=== PATIENT | male | born 1965 | race Caucasian/White ===

== ENCOUNTER 2024-07-23 13:58 | Outpatient (OUT) | payer BC, SELFPAY ==
--- NOTE | 2024-07-23 14:07 | XR_ITS ---
The [address] [address] Patient Name: BERNARDO JIMENEZ MRN: [id number] date: 1965 Sex: M Assigned Patient Location: [facility] Current Patient Location: Accession/Order Number: [id number] Exam Date: 07/23/2024 14:09 Report Date: 07/25/2024 08:26 At the request of: ARNOLD ESTRADA Procedure: XR knee RT 3V PROCEDURE: XR knee RT 3V HISTORY: Right Knee Pain COMPARISON: None. FINDINGS: BONES:No fracture, dislocation, or significant joint space narrowing. Tiny degenerative osteophytes along the articular margins of the patella. Degenerative enthesophyte at the quadriceps tendon insertion into the patella. SOFT TISSUES:No visible soft tissue swelling. EFFUSION:None visible. OTHER: Negative. XR/XR knee RT 3V IMPRESSION: 1. No acute bone abnormality or suspicious findings. 2. Minimal degenerative joint disease. Electronically authenticated by: CARLOS TEIXEIRA Date: 07/25/2024 08:26
== END 2024-07-23 13:59 | disposition home or self-care (01) ==
LOC: RAD 14:02
PROVIDERS: PCP Nurse Practitioner Family; Visit Provider Nurse Practitioner Family
DX: M25.561 Pain in right knee (principal)
CPT/HCPCS: 73562

== ENCOUNTER 2024-08-16 11:53 | Outpatient (OUT) | payer BC, SELFPAY ==
--- NOTE | 2024-08-16 12:04 | MR_ITS ---
The [address] [address] Patient Name: BERNARDO JIMENEZ MRN: [id number] date: 1965 Sex: M Assigned Patient Location: [facility] Current Patient Location: Accession/Order Number: [id number] Exam Date: 08/16/2024 12:30 Report Date: 08/17/2024 07:00 At the request of: ARNOLD ESTRADA Procedure: MR knee RT wo con EXAMINATION: MR knee RT wo con HISTORY: Right Knee Pain COMPARISON: No relevant comparison available. TECHNIQUE: A complete multi-planar MRI was performed. 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 CARTILAGE: No visible defect. BONES: No marrow pathology, fracture, or significant arthropathy. MCL AND MEDIAL CAPSULE: Normal medial collateral ligament and medial capsule. LATERAL COMPARTMENT LATERAL MENISCUS: No visible tear or significant degeneration. CARTILAGE: No visible defect. BONES: No marrow pathology, fracture, or significant arthropathy. LCL/POSTEROLAT COMPLEX: Normal lateral collateral ligament, fascicles, lateral capsule and ligaments. ANTERIOR COMPARTMENT PATELLA: No marrow pathology, fracture, or significant arthropathy. CARTILAGE: No visible defect. TENDONS: Normal. EFFUSION: None. No synovitis or loose bodies. ACL: Normal appearing ligament. PCL: Normal appearing ligament. MENISCOFEMORAL: Normal meniscofemoral ligaments. OTHER: Negative. 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
--- NOTE | 2024-08-16 12:04 | XR_ITS ---
The [address] [address] Patient Name: BERNARDO JIMENEZ MRN: [id number] date: 1965 Sex: M Assigned Patient Location: RAD Current Patient Location: [facility] Accession/Order Number: [id number] Exam Date: 08/16/2024 12:15 Report Date: 08/16/2024 13:11 At the request of: ARNOLD ESTRADA Procedure: XR foreign body eye BRIGITTE EXAMINATION: XR foreign body eye BRIGITTE HISTORY: Foreign Body Screen COMPARISON: No relevant comparison available. FINDINGS: ORBITS: Negative for a metallic foreign body. OTHER: Negative. XR/XR foreign body eye BRIGITTE IMPRESSION: No acute disease. Electronically authenticated by: CONCEPCIÓN GUERRERO Date: 08/16/2024 13:11
== END 2024-08-16 11:54 | disposition home or self-care (01) ==
LOC: RAD 11:57
PROVIDERS: PCP Nurse Practitioner Family; Visit Provider Nurse Practitioner Family
DX: M25.561 Pain in right knee (principal)
CPT/HCPCS: 70030; 73721

== ENCOUNTER 2025-09-13 13:10 | Outpatient (OUT) | payer BC, SELFPAY ==
--- OUTSIDE RECORDS SUMMARY | 2025-09-13 13:15 | XMS_ITS | CCD ---
Author Organization [facility] Care Team Providers Care Production Line Operator Name Role Phone GALA, DR AGIL Rodrigues Admitting Unavailable GALA, DR AGIL Rodrigues Consulting Unavailable GALA, DR GAIL Rodrigues Attending Unavailable [facility] WHEELER Primary Care Unavailable JULIAN KENNY Consulting Unavailable Unavailable Primary Care Provider UnavailLEO Reed Attending Unavailable NATALIE, JOSSY Referring Unavailable HILLS, LEO D Referring Unavailable BENJAMIN, LEO D Referring Unavailable BENJAMIN, LEO D Attending Unavailable BENJAMIN, LEO D Referring Unavailable BENJAMIN, LEO D Attending Unavailable BENJAMIN LEO D Referring Unavailable JOSSY ESTRADA Primary Care Physician [phone] HERRERA THOMPSON Attending Unavailable HERRERA THOMPSON Attending Unavailable NATALIE JOSSY S Referring Unavailable Sidney COLLINS Attending Unavailable Gardiner, Nahomy Attending Unavailable NATALIE, JOSSY S Referring Unavailable Gardiner, Nahomy Admitting Unavailable Gardiner, Nahomy Attending Unavailable NATALIE, JOSSY S Referring Unavailable Gardiner, Nahomy Admitting Unavailable Gardiner, Nahomy Admitting Unavailable Gardiner, Nahomy Attending Unavailable NATALIE, JOSSY S Referring Unavailable Gardiner, Nahomy Admitting Unavailable Gardiner, Nahomy Attending Unavailable NATALIE, JOSSY S Referring Unavailable Gardiner, Nahomy Admitting Unavailable NATALIE, JOSSY S Referring Unavailable Gardiner, Nahomy Attending Unavailable Dominic Guzman. Referring Unavailable Dominic Guzman. Attending Unavailable Dominic Guzman. Referring Unavailable Dominic Guzman. Attending Unavailable Dominic Guzman. Attending Unavailable Dominic Guzman. Referring Unavailable Dominic Guzman. Referring Unavailable Dominic Guzman. Attending Unavailable Dominic Guzman. Referring Unavailable Dominic Guzman. Attending Unavailable Dominic Guzman. Referring Unavailable Dominic Guzman Attending Unavailable Gardiner, Nahomy Attending Unavailable Zuleyka, Nahomy Admitting Unavailable Benjamin, Leo D Referring Unavailable Gardiner, Nahomy Admitting Unavailable NATALIE, JOSSY S Referring Unavailable Gardiner, Nahomy Attending Unavailable Gardiner, Nahomy Attending Unavailable JOSSY ESTRADA Referring Unavailable Nahomy Gardiner Admitting Unavailable Nahomy Gardiner Attending Unavailable JOSSY ESTRADA Referring Unavailable Nahomy Gardiner Admitting Unavailable Allergies Allergy ClassificationReported Allergen(s)Allergy TypeDate of OnsetReaction(s) Facility (7 sources)Sulfonamides (Antibiotic)Drug Pkebjpu80-36-3067[facility] (14 sources)Sulfonamide; Translations: [sulfonamides]Drug allergyEruption of skin (disorder)[facility] (1 source)Azithromycin; Translations: [AZITHROMYCIN]Drug Aozqbtf59-32-1913 [facility] (1 source)Erythromycin; Translations: [ERYTHROMYCIN]Drug Lugklxh22-36-4383 [facility] (1 source)Sulfonamides (Antibiotic); Translations: [SULFA (SULFONAMIDE ANTIBIOTICS)]Propensity to adverse reactions to drug (disorder)09-30-2014 [facility] (1 source)Sulfonamides (Antibiotic); Translations: [sulfa drugs]Propensity to adverse reactions (disorder)[facility] Repository Medications Current Medications MedicationDrug Class(es)DatesSig (Normalized)Sig (Original)acetaminophen 500 mg oral tablet (12 sources)Start: 22-03-1913knmz 2 tablets by mouth twice daily as needed for painTylenol Extra Strength 500 mg oral tablet 1,000 mg = 2 tab(s), Oral, BID, PRN as needed for pain, Refills(s) 0 Start Date: 10/20/24 Status: Ordered Repeat number: 1acetaminophen 250 mg / aspirin 250 mg / caffeine 65 mg oral tablet (4 sources)Platelet Aggregation Inhibitor, Nonsteroidal Anti-inflammatory Drug, Central Nervous System Stimulant, MethylxanthineStart: 18-21-3817ltjw 2 tablets by mouth every six hoursBackaid IPF oral tablet 2 tab(s), Oral, q6hr Pain, Refill(s) 0 Start Date: 11/19/24 Status: Orderedatorvastatin 40 mg oral tablet (20 sources)HMG-CoA Reductase InhibitorStart: 77-81-8517yaso 1 tablet by mouth once dailyatorvastatin 40 mg Tab 40 mg = 1 tab(s), Oral, Daily, Refills(s) 0 Start Date: 06/20/25 Status: Ordered Medication Dispense Status: Completed Total Allowed Fills: 1 Fills Dispensed: 0Start: 26-10-0706qgyg 1 tablet by mouth once dailyatorvastatin 20 mg Tab 20 mg = 1 tab(s), Oral, Daily, Refills(s) 0 Start Date: 10/20/24 Status: Ordered Repeat number: 1take 1 tablet by mouth once daily atorvastatin (Lipitor) 20 MG tablet Take 1 tablet by mouth Daily Fnwlhi847 hr buprenorphine 0.005 mg/hr transdermal system (1 source)Partial Opioid AgonistStart: 07-14-2025 End: 03-87-3581Gujggdc 5 mcg/hr transdermal film, extended release 1 patch(es), TransDermal, qWeek for 4 week(s), 4 patch(es), Refill(s) 0, [email or web address] [facility] #72, 184, cm, 07/12/25 14:36:00 EDT, Height/Length Dosing, 112.5, kg, 07/12/25 14:36:00 EDT, Weight Dosing Start Date: 07/14/25 Stop Date: 08/11/25 Status: Ordered Medication Dispense Status: Completed Quantity: 4.0 Unit: patch(es) Total Allowed Fills:1 Fills Dispensed: 0 Indications: Chronic pain syndrome; Spondylosis without myelopathy or radiculopathy, lumbar region; Radiculopathy, lumbar region;dolutegravir 50 mg oral tablet (20 sources)Human Immunodeficiency Virus Integrase Strand Transfer Inhibitor Start: 48-95-9034nqys 1 tablet by mouth once dailyTivicay 50 mg oral tablet 50 mg = 1 tab(s), Oral, Daily, for HIV, Refills(s) 0 Start Date: 07/12/20 Status: Ordered Medication Dispense Status: Completed Total Allowed Fills: 1 Fills Dispensed: 0emtricitabine 200 mg / tenofovir alafenamide 25 mg oral tablet (20 sources)Human Immunodeficiency Virus Nucleoside Analog Reverse Transcriptase InhibitorStart: 95-80-6461rglq 1 tablet by mouth once dailyDescovy 200 mg-25 mg oral tablet 1 tab(s), Oral, Daily, Refill(s) 0, for HIV Start Date: 10/20/24 Stat us: Ordered Medication Dispense Status: Completed Total Allowed Fills: 1 Fills Dispensed: 0take 1 tablet by mouth once dailyDescovy 200-25 MG tablet Take 1 tablet by mouth Daily Activegabapentin 300 mg oral capsule (5 sources)Anti-epileptic AgentStart: 33-00-5710pdce 1 capsule by mouth in the morninggabapentin (Neurontin) 300 MG capsule Take 300 mg by mouth in the morning and 300 mg before bedtime. 09/07/2024 ActivehydroCHLOROthiazide 25 mg oral tablet (20 sources)Thiazide DiureticStart: 13-39-5020dbvz 25 mg by mouth once daily hydrochlorothiazide 25 mg, Oral, Daily, Refills(s) 0, High blood pressure Start Date: 12/16/16 Status: Ordered Medication Dispense Status: Completed Total Allowed Fills: 1 Fills Dispensed: 0ibuprofen 200 mg oral tablet (12 sources)Nonsteroidal Anti-inflammatory DrugStart: 34-29-2435mbsu 2 tablets by mouth every four hours as needed for painibuprofen 200 mg Tab 400 mg = 2 tab(s), Oral, q4hr, PRN for pain, # 120 tab(s), Refills(s) 0 Start Date: 07/12/25 Status: Ordered Medication Dispense Status: Completed Quantity: 120.0 Unit: tab(s) Total Allowed Fills: 1 Fills Dispensed: 0Start: 07-36-2307rzrt 2 capsules by mouth twice daily as needed for painibuprofen 200 mg oral capsule 400 mg = 2 cap(s), Oral, BID, PRN as needed for pain, Refills(s) 0 Start Date: 11/04/24 Status: Ordered Repeat number: 1lisinopril 40 mg oral tablet (20 sources)Angiotensin Converting Enzyme InhibitorStart: 06-23-0287wmkn 40 mg by mouth once dailylisinopril 40 mg, Oral, Daily, Refills(s) 0, High blood pressure Start Date: 12/16/16 Status: OrderedMedication Dispense Status: Completed Total Allowed Fills: 1 Fills Dispensed: 024 hr metoprolol succinate 50 mg extended release oral tablet (5 sources)beta-Adrenergic Blockertake 1 tablet by mouth once dailymetoprolol succinate XL (Toprol-XL) 50 MG 24 hr tablet Take 1 tablet by mouth Daily Active pregabalin 50 mg oral capsule (2 sources)Start: 10-20-2024 End: 20-12-2077gqnn 1 capsule by mouth twice dailypregabalin 50 mg Cap 50 mg = 1 cap(s), Oral, BID, X 30 day(s), # 60 cap(s), Refills(s) 1, Pharmacy:[facility]5, 184, cm, 10/20/24 11:33:00 EST, Height/Length Dosing, 112.1, kg, 10/20/24 11:33:00 EST, Weight Dosing Start Date: 10/20/24 Stop Date: 12/19/24 Status: Ordered Completed/Discontinued Medications MedicationDrug Class(es)DatesSig (Normalized)Sig (Original)amLODIPine 10 mg oral tablet (2 sources)Dihydropyridine Calcium Channel BlockerStart: 08-26-2024 End: 55-89-6179yhXFROMxzs (Norvasc) 10 MG tablet 08/26/2024 09/13/2024 Discontinued (Therapy completed)predniSONE 10 mg oral tablet (4 sources)Start: 08-23-2024 End: 05-92-1810fsdy 5 tablets by mouth once daily, then take 4 tablets by mouth once daily, then take 3 tablets bymouth once daily, then take 2 tablets by mouth once daily, then take 1 tablet by mouth once dailypredniSONE (Deltasone) 10 MG tablet Indications: Low back pain, unspecified back pain laterality, unspecified chronicity, unspecified whether sciatica present Take 5 tabs p.o. daily x3 days Take 4 tabs p.o. daily x3 days Take 3 tabs p.o. daily x3 days Take 2 tabs p.o. daily x3 days Take 1 tab p.o. daily x3 days 45 tablet 08/23/2024 09/13/2024 Discontinued (Therapy completed) Problems Active Problems Problem ClassificationProblemDateDocumented DateEpisodic/ChronicDisorders of lipid metabolism (16 sources)Hypercholesterolemia; Translations: [Mixed hyperlipidemia]Onset: 593620-27-9893RiljxmePdwdctrquv disorders (11 sources)Gastroesophageal reflux rzaxdcr33-10-3783EkbgkwgUsjozabty hypertension (15 sources)Essential (primary) hypertension; Translations: [Hypertensive disorder]Onset: 191966-82-1267CjkeanxJEC infection (16 sources)Human immunodeficiency virus infection; Translations: [Human immunodeficiency virus [HIV] disease]Onset: 497113-32-3496Fwamggw Osteoarthritis (2 sources)Unspecified osteoarthritis, unspecified site; Translations: [Unspecified osteoarthritis, unspecified site]Onset: 98-68-2766AmhpnixZjulg aftercare (1 source)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; Translations: [OTH BRAND AMBASSADOR PROMOTIONAL MODEL CURRENT DRUG THERAPY]Onset: 45-63-7647OdiygaefXxynv and unspecified benign neoplasm (2 sources)History of polyp of oomyz09-00-2129XjaqldbeAczke gastrointestinal disorders (3 sources)Dysphagia, unspecified; Translations: [DYSPHAGIA UNSPECIFIED]Onset: 48-89-8420XciqnuuhAmqbj nervous system disorders (1 source)Chronic pain; Translations: [Other chronic pain]Onset: 10-20-2024 ChronicOther nervous system disorders (1 source)Chronic pain onahcmhv35-10-0477KosgyuzHwmkt non-traumatic joint disorders (2 sources)Pain in right knee; Translations: [Pain in joint, lower leg] 89-18-5591BmwnhrarYsvis nutritional; endocrine; and metabolic disorders (1 source)Body mass index 30+ - xtjcjri01-44-1604SqgivduXivvx nutritional; endocrine; and metabolic disorders (1 source)Obesity caused by energy teflzxvsd53-42-8831GvweouwHoodv upper respiratory infections (1 source)Acute pharyngitis, unspecified; Translations: [ACUTE PHARYNGITIS UNSPECIFIED]Onset: 68-61-5842PaihijthKgpakylk codes; unclassified (1 source)Family history of malignant neoplasm of digestive organsOnset: 65-50-9076HzqbelbiOjftzvgg codes; unclassified (1 source)Family history of cancer of ujqqa99-35-1807AsszcfanJeuzjgdjmxi; intervertebral disc disorders; other back problems (3 sources)Lumbosacral spondylosis with radiculopathy; Translations: [Other spondylosis with radiculopathy, lumbosacral region]06-97-2024JtjrhxhSklbrhderrk; intervertebral disc disorders; other back problems (7 sources)Low back pain; Translations: [Low back pain, unspecified back pain laterality, unspecified chronicity, unspecified whether sciatica present] 43-39-1616BzgejsazOmdjkqusoskb (1 source)Bilateral sxfubbroalwg74-46-1862 Past or Other Problems Problem ClassificationProblemDateDocumented DateEpisodic/ChronicOther connective tissue disease (2 sources)Neuralgia and neuritis, unspecified; Translations: [Neuralgia and neuritis, unspecified]Onset: 66-72-2873RjphmbbzGliyv screening for suspected conditions (not mental disorders or infectious disease) (2 sources)Encounter for screening for malignant neoplasm of prostate; Translations: [Encounter for screening for malignant neoplasm of prostate]Onset: 56-84-4879LtyrqquyZmhkypykfuwf (1 source)Personal history of adenomatous and serrated colon polypsOnset: 08-09-2025 Results Test NameValueInterpretationReference RangeFacilityAmbulatory Visit Summaryon 46-23-7644Cnrkpqoblo Visit SummaryAmbulatory Visit Summary BERNARDO JIMENZE :1965 Visit Date:08/09/2025 Ambulatory Visit Instructions Your Diagnosis Personal history of adenomatous and serrated colon polyps Family history of colon cancer Your Care Team Attending Physician - Sidney COLLINS MD Primary Care Physician - OJSSY ESTRADA CNP Referring Physician - JOSSY ESTRADA CNP This Is Your Medications List Contact prescribing physician if questions or concerns atorvastatin (atorvastatin 40 mg Tab) buprenorphine (Butrans 5 mcg/hr transdermal film, extended release) dolutegravir (Tivicay 50 mg oral tablet) emtricitabine-tenofovir (Descovy 200 mg-25 mg oral tablet) hydrochlorothiazide ibuprofen (ibuprofen 200 mg Tab) lisinopril Procedures Performed Injection of sacroiliac joint using fluoroscopic guidance (04/20/2025), Facet (01/11/2025), Injection into facet joint of lumbar spine using fluoroscopic guidance (12/20/2024), Injection of sacroiliac joint using fluoroscopic guidance (11/23/2024), Injection of nerve root of lumbar spine using fluoroscopic guidance (11/04/2024), Colonoscopy, flexible; with removal of tumor(s), polyp(s), or other lesion(s) by snare technique (07/12/2020), Colonoscopy (12/2016). Discharge Vitals Heart Rate (Peripheral) 72 Respiratory Rate 16 Blood Pressure 118/74 Height 184 cm Height 72 in Weight 111.2 kg Weight 245.154 lb BMI 32.84 What to do next Scheduled Follow-Up Appointments Friday 2:15 PM EST With: Nahomy Gardiner PA-C Where: [facility] Medications What How Much When Why Instructions Unchanged atorvastatin (atorvastatin 40 mg Tab) 1 Tablets By Mouth Every day Contact prescribing physician if questions or concerns Unchanged buprenorphine (Butrans 5 mcg/ hr transdermal film, extended release) 1 Patches Transdermal Every week Chronic pain disorder Chronic lumbar radiculopathy Arthritis of facet joint of lumbar spine Duration: 4 Weeks Contact prescribing physician if questions or concerns Unchanged dolutegravir (Tivicay 50 mg oral tablet) 1 Tablets By Mouth Every day for HIV Contact prescribing physician if questions or concerns Unchanged emtricitabine-tenofovir (Descovy 200 mg-25 mg oral tablet) 1 Tablets By Mouth Every day for HIV Contact prescribing physician if questions or concerns Unchanged hydrochlorothiazide 25 Milligram By Mouth Every day Contact prescribing physician if questions or concerns Unchanged ibuprofen (ibuprofen 200 mg Tab) 2 Tablets By Mouth Every 4 hours as needed for for pain Contact prescribing physician if questions or concerns Unchanged lisinopril 40 Milligram By Mouth Every day Contact prescribing physician if questions or concerns Allergies sulfa drugs (Rash) Problems Ongoing - Any problem that you are currently receiving treatment for. Arthritis of facet joint of lumbar spine Bilateral sacroiliitis BMI 32.0-32.9,adult Chronic lumbar radiculopathy Chronic pain disorder Family history of colon cancer Human immunodeficiency virus infection Hypercholesterolemia Hypertension Hypertriglyceridemia Mixed hyperlipidemia Obesity due to excess calories Personal history of adenomatous and serrated colon polyps Personal history of colon polyps, unspecified Patient Survey You may receive a survey via text or e-mail asking about your office visit. Please share your experience with us by completing your survey. We appreciate your feedback and thank you for choosing us for your care. Patient Portal You may access all of your results and other medical record information on our secure patient portal. If you are not signed up for this yet, please contact [employer] at [phone] to get signed up today. Language Information Language assistance services are available as needed. [facility] Amb[facility] Visit Summary BERNARDO JIMENEZ :1965 Visit Date:08/09/2025 Ambulatory Visit Instructions Your Diagnosis Personal history of adenomatous and serrated colon polyps Family history of colon cancer Your Care Team Attending Physician - Sidney COLLINS MD Primary Care Physician - JOSSY ESTRADA CNP Referring Physician - JOSSY ESTRADA CNP This Is Your Medications List Contact prescribing physician if questions or concerns atorvastatin (atorvastatin 40 mg Tab) buprenorphine (Butrans 5 mcg/hr transdermal film, extended release) dolutegravir (Tivicay 50 mg oral tablet) emtricitabine-tenofovir (Descovy 200 mg-25 mg oral tablet) hydrochlorothiazide ibuprofen (ibuprofen 200 mg Tab) lisinopril Procedures Performed Injection of sacroiliac joint using fluoroscopic guidance (04/20/2025), Facet (01/11/2025), Injection into facet joint of lumbar spine using fluoroscopic guidance (12/20/2024), Injection of sacroiliac joint using fluoroscopic guidance (11/23/2024), Injection of nerve root of lumbar spine using fluoroscopic guidance (11/04/2024), Colonoscopy, flexible; with removal of tumor(s), polyp(s), or other lesion(s) by snare technique (07/12/2020), Colonoscopy (12/2016). Discharge Vitals Heart Rate (Peripheral) 72 Respiratory Rate 16 Blood Pressure 118/74 Height 184 cm Height 72 in Weight 111.2 kg Weight 245.154 lb BMI 32.84 What to do next Scheduled Follow-Up Appointments Friday 2:15 PM EST With: Nahomy Gardiner PA-C Where: [facility] Medications What How Much When Why Instructions Unchanged atorvastatin (atorvastatin 40 mg Tab) 1 Tablets By Mouth Every day Contact prescribing physician if questions or concerns Unchanged buprenorphine (Butrans 5 mcg/ hr transdermal film, extended release) 1 Patches Transdermal Every week Chronic pain disorder Chronic lumbar radiculopathy Arthritis of facet joint of lumbar spine Duration: 4 Weeks Contact prescribing physician if questions or concerns Unchanged dolutegravir (Tivicay 50 mg oral tablet) 1 Tablets By Mouth Every day for HIV Contact prescribing physician if questions or concerns Unchanged emtricitabine-tenofovir (Descovy 200 mg-25 mg oral tablet) 1 Tablets By Mouth Every day for HIV Contact prescribing physician if questions or concerns Unchanged hydrochlorothiazide 25 Milligram By Mouth Every day Contact prescribing physician if questions or concerns Unchanged ibuprofen (ibuprofen 200 mg Tab) 2 Tablets By Mouth Every 4 hours as needed for for pain Contact prescribing physician if questions or concerns Unchanged lisinopril 40 Milligram By Mouth Every day Contact prescribing physician if questions or concerns Allergies sulfa drugs (Rash) Problems Ongoing - Any problem that you are currently receiving treatment for. Arthritis of facet joint of lumbar spine Bilateral sacroiliitis BMI 32.0-32.9,adult Chronic lumbar radiculopathy Chronic pain disorder Family history of colon cancer Human immunodeficiency virus infection Hypercholesterolemia Hypertension Hypertriglyceridemia Mixed hyperlipidemia Obesity due to excess calories Personal history of adenomatous and serrated colon polyps Personal history of colon polyps, unspecified Patient Survey You may receive a survey via text or e-mail asking about your office visit. Please share your experience with us by completing your survey. We appreciate your feedback and thank you for choosing us for your care. Patient Portal You may access all of your results and other medical record information on our secure patient portal. If you are not signed up for this yet, please contact [email or web address] at [phone] to get signed up today. Language Information Language assistance services are available as needed. [facility] HospitalDocumentationon 07-19-2025 [id number] Bernardo Jimenez 1965 M Date Provider Department [facility] 07/19/20[facility] Family History Problem Relation Age of Onset Hypertension Mother Colon cancer Mother Colon cancer Father Hypertension Father Other Father Family Status - Relation Status Age at Mother Father Reason for Visit and Comments: Eligibility due 08/2026 [Other][facility] FTMCon [id number] Letter [facility] May 27, 2025 BERNARDO JIMENEZ [address] [place] [address] : 1965 Dear Bernardo, This is a reminder that you are due for an appointment with [employer]. Please contact our office at [phone] to schedule an appointment at your earliest convenience. Thank you, [facility] reBounces [facility] HospitalNormalKind[facility]imaMain [place] Intraoperative Recordon [id number] [place] Intraoperative RecordMain [place] Intraoperative Record IntraOp Document Type FTPM Summary Primary Physician: Dominic Guzman DO Finalized Date/Time: 04/20/25 15:37:36 Pt. Name: BERNARDO JIMENEZ /Sex: 1965 Male Med Rec #: [id number] Physician: Dominic Guzman DO Financial #: [id number] Pt. Type: P Room/Bed: / Admit/Disch: 04/20/25 14:18:50 - Institution: Case Times FTPM Entry 1 Patient Times In Room 04/20/25 15:30:00 Out Room 04/20/25 15:35:00 Procedure Times Start 04/20/25 15:33:00 Stop 04/20/25 15:34:00 Anesthesia Times Last Modified By: Lupe Pemberton RN 04/20/25 15:35:06 Case Attendance FTPM Entry 1 Entry 2 Entry 3 Case Attendee Dominic Guzman DO, RN, Angela Rhodes Role Performed Surgeon - Primary Nurse Anesthesia Program Director - Primary Hogshead Head Matcher Time In 04/20/25 15:30:00 04/20/25 15:30:00 04/20/25 15:30:00 Time Out 04/20/25 15:35:00 04/20/25 15:35:00 04/20/25 15:35:00 Procedure SACROILIAC JOINT SACROILIAC JOINT SACROILIAC JOINT INJECTION(Right) INJECTION(Right) INJECTION(Right) Comments Last Modified By: Nilay JACKSON, Lupe Pemberton RN, Lupe Ruelas RN 04/20/25 15:35:07 04/20/25 15:35:07 04/20/25 15:35:07 Entry 4 Case Attendee Vito Meneses RN Role Performed Scrub - Primary Time In 04/20/25 15:30:00 Time Out 04/20/25 15:35:00 Procedure SACROILIAC JOINT INJECTION(Right) Comments Last Modified By: Lupe Pemberton RN 04/20/25 15:35:07 Perioperative Protocols FTPM Pre-Care Text: Implements protective measures prior to operative or invasive procedure, confirms identity before the operative or invasive procedure, verifies operative procedure, surgical site, and laterality Entry 1 Procedure(s) SACROILIAC JOINT Patient Identity Birthday, ID Band INJECTION(Right) Verified (select at Check, Patient least 2): Participation Consents / H and P H&P, Surgery/Procedure Operative Site Present Verified Consent Marking Verified Surgical Site Yes Laterality Verified Yes Verified Procedure Verified Yes Correct Patient Yes Position Verified Availability Equipment, Medication, Prep Dry Yes Verified (If X-ray Applicable) PreOp Antibiotic No Time Out Lupe Pemberton RN, Jones DO, Bradford A., Ott, Amy Time Out Complete 04/20/25 15:32:00 Outcomes Met? Yes Last Modified By: Lupe Pemberton RN 04/20/25 15:32:15 Post-Care Text: The patient is free from signs and symptoms of injury caused by extraneous objects Allergy Information FTPM Pre-Care Text: Verifies allergies Entry 1 Allergies Reviewed? Yes Allergies Reviewed Self/Patient With Outcomes Met? Yes Last Modified By: Lupe Pemberton RN 04/20/25 15:31:16 Post-Care Text: The patient received appropriate medication(s) safely administered during the perioperative period Surgical Procedures FTPM Entry 1 Procedure Description Procedure SACROILIAC JOINT Modifiers Right INJECTION Surgeon Description Right SIJI Primary Procedure Yes Primary Surgeon Dominic Guzman DO Start 04/20/25 15:33:00 Stop 04/20/25 15:34:00 Anesthesia Type None Surgical Service Pain Management Wound Class 1 - Clean Last Modified By: Lupe Pemberton RN 04/20/25 15:35:09 General Case Data FTPM Pre-Care Text: Classifies surgical wound, implements aseptic technique, initiates traffic control Entry 1 Case Information OR Pain Proc Room Case Level Level 2 Wound Class 1 - Clean Specialty Pain Management Preop Diagnosis M46.1 Postop Same As Preop Yes Postop Diagnosis M46.1 Outcomes Met? Yes Last Modified By: Lupe Pemberton RN 04/20/25 15:32:36 Post-Care Text: The patient is free from signs and symptoms of infection Skin Assessment (Pre Procedure) FTPM Pre-Care Text: Implements protective measures to prevent skin/ tissue injury due to thermal or mechanical sources Evaluates for signs and symptoms of physical injury to skin and tissue Entry 1 Skin Integrity Intact, [place], Warm, & Skin Abnormality No Dry Outcomes Met? Yes Last Modified By: Lupe Pemberton RN 04/20/25 15:31:56 Post-Care Text: The patient is free from signs and symptoms of injury caused by extraneous objects Patient Positioning FTPM Pre-Care Text: Identifies physical alterations that require additional precautions for procedure-specific positioning, verifies presence of prosthetics or corrective devices, positions the patient, evaluates the patient for signs and symptoms of injury as a result of positioning Entry 1 Procedure SACROILIAC JOINT Body Position Prone INJECTION(Right) Feet Uncrossed? Yes Left Arm Position Resting at Side Right Arm Position Resting at Side Left Leg Position Extended Right Leg Position Extended Positioning Device Pillow Under Head Large, Safety Strap, Pillow Large Under Knees Press Points Checked Yes By Lupe Pemberton RN Outcomes Met? Yes Last Modified By: Jose Elias (more content not included)...[facility] [id number] OR Preoperative RecordMain OR Preoperative Record Holding Area Document Type FTPM Summary Primary Physician: Dominic Guzman DO Finalized Date/Time: 04/20/25 14:48:46 Pt. Name: BERNARDO JIMENEZ/Sex: 1965 Male Med Rec #: [id number] Physician: Dominic Guzman DO Financial #: [id number] Pt. Type: P Room/Bed: / Admit/Disch: 04/20/25 14:18:50 - Institution: Case Times Holding FTPM Pre-Care Text: Verifies consent for planned procedure, identifies individual values and wishes concerning care, includes family members in perioperative teaching Secures patient's records' belongings, and valuables, maintains patient's dignity and privacy, and maintains patient confidentiality Entry 1 In Holding 04/20/25 14:44:00 Outcomes Met? Yes Last Modified By: Nichole Gross RN 04/20/25 14:44:51 Post-Care Text: The patient participates in decisions affecting his or her perioperative plan of care The patient'sright to privacy is maintained Surgery Checklist FTPM Entry 1 Patient Birthday, ID Band Procedure History and Physical, Identification: Check, Patient Verification: Surgical Consent, With Participation Patient NPO after Midnight: No Date/Time: 04/20/25 14:45:00 Results Reviewed 1130 [address] bethea Personal Items: Glasses Comments: sandwich and tea Personal Items Pt. wearing glasses. Complaints of Pain: Yes Comment: Pain Comment: 05/22 right lower back Operative Site Yes radiates into right hip Marking: and right back. Marked By: Dr. Guzman Location: right SIJI Availability Equipment, X-Ray Verified: Does Patient Smoke No Patient states Yes Comment - Adult friend-Krissy postop adult Supervision supervision available Case Cancelled in No Holding Area see comments below for reason Last Modified By: Nichole Gross RN 04/20/25 14:47:00 Finalized By: Nichole Gross RN Document Signatures Signed By: Nichole Gross RN 04/20/25 14:46 Nichole Gross RN 04/20/25 14:48 Unfinalized History Date/Time Username Reason for Unfinalizing Freetext Reason for Unfinalizing 04/20/25 14:46 [id number] Modifying [facility]Mer[facility]36 on [id number]/9/25 03/01/25 HIV Quantitative RNA (copies/mL) Date Value 03/01/2025 <30 09/17/2022 Not Detected CD4 Abs (cells/mm3) Date Value 03/01/2025 1,192 (H) Creatinine (mg/dL) Date Value 03/01/2025 1.04 Income on file: NoNormalUnFostoria City HospitalRefillon 03-28-2025 [id number] Bernardo Jimenez 1965 M Date Provider Department Center 03/28/2025 Jagdeep-[facility] Family History Problem Relation Age of Onset Hypertension Mother Colon cancer Mother Colon cancer Father Hypertension Father Other Father Family Status - Relation Status Age at Mother Father Reason for Visit and Comments: Med Refill [[id number]]NormalUnFostoria City HospitalCBC WITH AUTO DIFFERENTIALon 06-70-5162Bejiqfqpr (Bld) [#/Vol]0.11 10*3/uLNormal0.00-0.20 [facility] CampusComment on above:Performed By: #### [id number] #### [facility] ([facility]) [address] [place], [place] [address]Cvxfobzbz/100 WBC (Bld)1.2 %High0.0-1.0UnFostoria City HospitalComment on above:Performed By: #### [id number] #### [facility] ([facility]) [address] [place] [address]Xkwmrqtnuiq (Bld) [#/Vol]0.27 10*3/uLNormal0.00-0.50UnFostoria City HospitalComment on above:Performed By: #### [id number] #### [facility] ([facility]) [address] [place] [address]Dgqekcmrxbf/100 WBC (Bld)2.9 %Normal0.0-6.0UnFostoria City HospitalComment on above:Performed By: #### [id number] #### [facility] ([facility]) [address] [place], [place] [address]Wgobbhlcbjr distribution width (RBC) [Ratio]12.8 %Normal 11.5-15.0UnFostoria City HospitalComment on above:Performed By: #### [id number] #### [facility] ([facility]) [address] [place], [place] [address]VVUGMTOLNCQ MEAN CORPUSCULAR HEMOGLOBIN CONCENTRATION (G/DL) BY TJJXASEKK95.8 g/xYOzeqcw36.0-35.0UnFostoria City HospitalComment on above:Performed By: #### [id number] #### [facility] ([facility]) [address] [place], [place] [address]Byiyjyfxvt (Bld) [Volume fraction]42.6 %Whhuor81.0-50.0 [facility] CampusComment on above:Performed By: #### [id number] #### [facility] ([facility]) [address] [place], [place] [address]Gvedrateck (Bld) [Mass/Vol]14.4 g/oGJuugcn12.0-17.0[facility] Medical CenterComment on above:Performed By: #### [id number] #### [facility] ([facility]) [address] [facility] [place], [place] [address]Axqzptbl granulocytes (Bld) [#/Vol]0.05 10*3/uLNormal0.00-0.20 [facility] CampusComment on above:Performed By: #### [id number] #### [facility] ([facility]) [address] [facility] [place], [place] [address]Mzgdabnk granulocytes/100 WBC (Bld)0.5 %Normal0.0-1.0UnFostoria City HospitalComment on above:Performed By: #### [id number] #### [facility] ([facility]) [address] [facility] [place], [place] [address]Ckdddpgdjwi (Bld) [#/Vol]3.46 10*3/uLNormal1.20-4.00UnFostoria City HospitalComment on above:Performed By: #### [id number] #### [facility] ([facility]) [address] [place], [place] [address]Khyarnimnym/100 WBC (Bld)37.6 %Cczldn35.0-45.0UnFostoria City HospitalComment on above:Performed By: #### [id number] #### [facility] ([facility]) [address] [place], [place] [address]PXR (RBC) [Entitic mass]32.0 bbLqlrpk30.0-33.0UnFostoria City HospitalComment on above:Performed By: #### [id number] #### [facility] ([facility]) [address] [place], [place] [address]HAY (RBC) [Entitic vol]94.7 eCPgzauu49.0-98.0UnFostoria City HospitalComment on above:Performed By: #### [id number] #### [facility] ([facility]) [address] [place], [place] [address]Omttzughy (Bld) [#/Vol]0.61 10*3/uLNormal0.10-1.00UnFostoria City HospitalComment on above:Performed By: #### [id number] #### [facility] ([facility]) [address] [place] [address]Tdcwgkdim/100 WBC (Bld)6.6 %Normal5.0-12.0UnFostoria City HospitalComment on above:Performed By: #### [id number] #### [facility] ([facility]) [address] [place] [address]Pzhqdnuffwe (Bld) [#/Vol]4.69 10*3/uLNormal1.60-7.60UnFostoria City HospitalComment on above:Performed By: #### [id number] #### [facility] ([facility]) [address] [place] [address]Kunirtmvseh/100 WBC (Bld)51.2 %Nxsete06.0-72.0UnFostoria City HospitalComment on above:Performed By: #### [id number] #### [facility] ([facility]) [address] [place] [address]LRBF (PER 100 WBCS) BY AUTOMATED COUNT0.0 %Kuuszx0TyfquhriybFostoria City HospitalComment on above:Performed By: #### [id number] #### [facility] ([facility]) [address] [place] [address]UGPINRAHT (10*3/UL) IN BLOOD AUTOMATED [id number] 10*3/uLNormal 150-400UnFostoria City HospitalComment on above:Performed By: #### [id number] #### [facility] ([facility]) [address] [place] [address]YYA (Bld) [#/Vol]4.50 10*6/uLNormal4.20-5.70UnFostoria City HospitalComment on above:Performed By: #### [id number] #### [facility] ([facility]) [address] [place] [address]DZO (Bld) [#/Vol]9.19 10*3/uLNormal4.00-10.60[facility] CampusComment on above:Performed By: #### [id number] #### [facility] ([facility]) [address] [place], [place] [address]SHCTZTXYB TRACHOMATIS AND NEISSERIA GONORRHEA, TMAon 03-01-2025 CHLAMYDIA TRACHOMATIS DNA PROBE (PRESENCE) IN UNSP SPECNegativeNormalNegative [facility] CampusComment on above:Result Comment: No Chlamydia trachomatis rRNA Detected. The Aptima Combo 2 Assay is a FDA approved target amplification nucleic acid probe test that utilizes target capture for the in vitro qualitative detection and differentiation of ribosomal RNA (rRNA)from Chlamydia trachomatis (CT) and/or Neisseria gonorrhoeae (GC) to aid the diagnosis of chlamydial and/or gonococcal urogenital disease using the Fairplay System. The Aptima Combo 2 Assay involves target capture, target amplification by Business Banking Sales Assistant-Mediated Amplification (TMA), and the detection of the amplification products (amplicon) by the Hybridization Protection Assay (HPA). The internal process controls of the Fairplay System monitor the target capture, amplification, and detection steps of the assay, this is not intended to control for sampling adequacy.Performed By: #### [id number] #### [facility] ([facility]) [address] [place], [place] [address]ZXAQMIKSS GONORRHOEAE DNA PROBE (PRESENCE) IN UNSP SPECNegative NormalNegativeUnFostoria City HospitalComment on above:Result Comment: No Neisseria gonorrhoeae rRNA Detected. The Aptima Combo 2 Assay is a FDA approved target amplification nucleic acid probe test that utilizes target capture for the in vitro qualitative detection and differentiation of ribosomal RNA (rRNA)from Chlamydia trachomatis (CT) and/or Neisseria gonorrhoeae (GC) to aid the diagnosis of chlamydial and/or gonococcal urogenital disease using the Fairplay System. The Aptima Combo 2 Assay involves target capture, target amplification by Business Banking Sales Assistant-Mediated Amplification (TMA), and the detection of the amplification products (amplicon) by the Hybridization Protection Assay (HPA). The internal process controls of the Fairplay System monitor the target capture, amplification, and detection steps of the assay, this is not intended to control for sampling adequacy.Performed By: #### [id number] #### [facility] ([facility]) [address] [place], [place] [address]VXCTZYLUTPZYB METABOLIC PANELon 43-73-9840Tqhwfna [Mass/Vol]4.6 g/dLNormal3.5-5.7UnFostoria City HospitalComment on above:Performed By: #### [id number] #### [facility] ([facility]) [address] [place], [place] [address]ANG [Catalytic activity/Vol]56 U/UTkxxwr60-219PsnnmgzczgFostoria City HospitalComment on above:Performed By: #### [id number] #### [facility] ([facility]) [address] [place], [place] [address]VTR [Catalytic activity/Vol]43 U/LNormal7-52UnFostoria City HospitalComment on above:Performed By: #### [id number] #### [facility] ([facility]) [address] [place], [place] [address]Ijdqo gap [Moles/Vol]12 mmol/LNormal7-20UnFostoria City HospitalComment on above:Performed By: #### [id number] #### [facility] ([facility]) [address] [place], [place] [address]QXC [Catalytic activity/Vol]34 U/BQcptlx77-81ShxlxleposFostoria City HospitalComment on above:Performed By: #### [id number] #### [facility] ([facility]) [address] [place], [place] [address]Azdtyrfpc [Mass/Vol]0.6 mg/dLNormal0.3-1.0UnFostoria City HospitalComment on above:Performed By: #### [id number] #### [facility] ([facility]) [address] [place], [place] [address]Jbicngr [Mass/Vol]9.3 mg/dLNormal8.6-10.3UnFostoria City HospitalComment on above:Performed By: #### [id number] #### [facility] ([facility]) [address] [place] [address]Mjrbglro [Moles/Vol]104 mmol/KTwbzem21-119PlttxmtfkkFostoria City HospitalComment on above:Performed By: #### [id number] #### [facility] ([facility]) [address] [place] [address]RN6 [Moles/Vol]25 mmol/NQmovuy99-82OmxcjndnatFostoria City HospitalComment on above:Performed By: #### [id number] #### [facility] ([facility]) [address] [place] [place] [address]Scijlwmwrc [Mass/Vol]1.04 mg/dLNormal0.70-1.30UnFostoria City HospitalComment on above:Performed By: #### [id number] #### [facility] ([facility]) [address] [place] [address]AMMEXAKZOH FILTRATION RATE ML/MIN/1.73 SQ M.BHWPAPQZO35.2 mL/min/1.73m*2Normal>60.0UnFostoria City HospitalComment on above: Result Comment: The [facility]???s estimated glomerular filtration rate (eGFR) will no longer include consideration of race in its calculation. The National Kidney Foundation???s eGFR Task Force developed new recommendations for the estimation of the glomerular filtration rate in the [place] They recommend immediate implementation of the new equation refit without the race variable in all laboratories because the calculation does not include race. In addition to not including race in the calculation and reporting, it included diversity in its development, and has acceptable performance characteristics and potential consequences that do not disproportionately affect anyone group of individuals.Performed By: #### [id number] #### [facility] ([facility]) [address] [place] [address]Pashpst [Mass/Vol]96 mg/yDNvakvm34-859AdnxlkracgFostoria City HospitalComment on above:Performed By: #### [id number] #### [facility] ([facility]) [address] [place] [address]Pxzfdurto [Moles/Vol]3.9 mmol/LNormal3.5-5.1UnFostoria City HospitalComment on above:Performed By: #### [id number] #### [facility] ([facility]) [address] [place] [address]Vdpcdyi [Mass/Vol]7.9 g/dLNormal6.0-8.3UnFostoria City HospitalComment on above:Performed By: #### [id number] #### [facility] ([facility]) [address] [place] [address]Ukykjd [Moles/Vol]137 mmol/GKmhkmg470-143UynqbpwoisFostoria City HospitalComment on above:Performed By: #### [id number] #### [facility] ([facility]) [address] [place] [address]Qrsy nitrogen [Mass/Vol]11 mg/dLNormal7-25UnFostoria City HospitalComment on above:Performed By: #### [id number] #### [facility] ([facility]) [address] [place] [place], [place] [address]WQDL NITROGEN/CREATININE (MASS RATIO) IN SER/PLAS10.6Normal [facility] CampusComment on above:Performed By: #### [id number] #### [facility] ([facility]) [address] [place] [address]PHXPE PANELon 24-43-3740HMHO/HDL3.4 mg/dLNormalUniClermont County HospitalComment on above:Performed By: #### [id number] #### [facility] ([facility]) [address] [place] [address]Owvuzpynexv [Mass/Vol]150 mg/oWTsnket163-685MzhwzzcsvwFostoria City HospitalComment on above:Performed By: #### [id number] #### [facility] ([facility]) [address] [place], [place] [address]Lrdmypmlq [Mass/Vol]308 mg/dLHigh<150UnFostoria City HospitalComment on above:Result Comment: TRIGLYCERIDE REFERENCE RANGE: 20 YEARS AND OLDER CARDIOVASCULAR RISK LESS THAN 150 mg/dL LOW RISK 150 TO 199 mg/dL BORDERLINE RISK 200 mg/dL AND GREATER HIGH RISKPerformed By: #### [id number] #### [facility] ([facility]) [address] [place], [place] [address]Yijgzggwt [Mass/Vol]44 mg/oZYgmduc17-90ZbzizhyetsFostoria City HospitalComment on above:Performed By: #### [id number] #### [facility] ([facility]) [address] [place], [place] [address]AMW HDL CHOL. (LDL+VLDL)106NormalUniversCleveland ClinicComment on above:Performed By: #### [id number] #### [facility] ([facility]) [address] [place], [place] [address]KOMPT VLDL-C62 mg/dLHigh0-40UnFostoria City Hospital Comment on above:Performed By: #### [id number] #### [facility] ([facility]) [address] [place], [place] [address]Cptvb [id number] Bernardo Jimenez 1965 Provider Department Center 03/01/2025 2244-[facility] MP LAB RESOURCE MP DRAW Medical Pavi Family History Problem Relation Age of Onset Hypertension Mother Colon cancer Mother Colon cancer Father Hypertension Father Other Father Family Status - Relation Status Age at Mother Father DeceasedNormalUniClermont County HospitalOffice Visiton 50-41-2568Pmmtmr-up [id number] Bernardo Jimenez 1965 Provider Department Center 03/01/2025 281-[facility]ERRERA [facility] Ruben Heal Family History Problem Relation Age of Onset Hypertension Mother Colon cancer Mother Colon cancer Father Hypertension Father Other Father Family Status - Relation Status Age at Mother Father Level of Service:11788 [place] OFFICE/OUTPATIENT ESTABLISHED MOD MDM 30 MIN () Reason for Visit and Comments: Currently asymptomatic HIV infection, with history of HIV-r [Other] Health Maintenance [619] Med Management [[id number]]NormalUnFostoria City HospitalOrders Only on 66-86-2675Cvtpby [id number] Bernardo Jimenez 1965 M Date Provider Department Center 03/01/2025 [facility]ERRERA AGUIRRE [facility] Ruben Heal Family History Problem Relation Age of Onset Hypertension Mother Colon cancer Mother Colon cancer Father Hypertension Father Other Father Family Status - Relation Status Age at Mother Father DeceasedNormalUniversCleveland ClinicPSA, DIAGNOSTICon 84-57-7653WWGSRJIY SPECIFIC AG (NG/ML) IN SER/PLAS0.8 ng/mLNormal0.4-4UnFostoria City HospitalComment on above:Order Comment: The method used for this test is [place] Lotaris DxI chemiluminescent immunoassay. Values obtained by different manufacturers or assay methods should not be compared.Performed By: #### [id number] #### [facility] ([facility]) [address] [place], [place] [address]QLDtk 24-32-5045FHWDJH AB PRESENCE IN SERUM BY RPRNon-Reactive NormalNonreactiveUnFostoria City HospitalComment on above:Performed By: #### [id number] #### [facility] ([facility]) [address] [place], [place] [address]Z CELL SUBSET ANALYSISon 84-91-0448RC214.02 %Low65.00-90.00 [facility] CampusComment on above:Performed By: #### [id number] #### [facility] ([facility]) [address] [place], [place] [address]CX[address] NBRROBBY4084 cells/nm9Rrad127-5744EnfpiccmqiFostoria City HospitalComment on above:Performed By: #### [id number] #### [facility] ([facility]) [address] [place], [place] [address]CK771.49 %Low40.00-70.00[facility] Comment on above:Performed By: #### [id number] #### [facility] ([facility]) [address] [place], [place] [address]MT[address] BWQNJVXB8409 cells/qh7Qxkb296-1366GfmkpoiiskFostoria City HospitalComment on above:Performed By: #### [id number] #### [facility] ([facility]) [address] [facility] [place] [place] [place] [address]LV5:CD81.62Baaoou7.00-4.00UnFostoria City Hospital Comment on above:Performed By: #### [id number] #### [facility] ([facility]) [address] [place] [place], [place] [address]YB725.93 %Lvlqym78.00-40.00UnFostoria City Hospital Comment on above:Performed By: #### [id number] #### [facility] ([facility]) [address] [place], [place] [address]IM[address] [id number] cells/ho4Lifc785-422QeysuzxojoTrinity Health System West CampusComment on above:Performed By: #### [id number] #### [facility] ([facility]) [address] [facility] [place], [place] [address]hf /09/07/242024 income not on file HIV Quantitative RNA Date Value 09/07/2024 Comment: Not Detected 09/17/2022 Not Detected copies/mL CD4 Abs (cells/mm3) Date Value 09/07/2024 1,692 (H) Creatinine (mg/dL) Date Value 09/07/2024 1.52 (H)NormalTrinity Health System West CampusRefillon 02-28-2025 [id number] Bernardo Jimenez 1965 M Date Provider Department [facility] Family History Problem Relation Age of Onset Hypertension Mother Colon cancer Mother Colon cancer Father Hypertension Father Other Father Family Status - Relation Status Age at Mother Father Reason for Visit and Comments: Med Refill [[id number]]NormalTrinity Health System West CampusMain OR Intraoperative Recordon 25-72-1691Okxx OR Intraoperative RecordMain OR Intraoperative Record IntraOp Document Type FTPM Summary Primary Physician: Dominic Guzman DO Finalized Date/Time: 02/01/25 15:03:17 Pt. Name: BERNARDO JIMENEZ D.O.B./Sex: 1965 Male Med Rec #: [id number] Physician: Dominic Guzman DO Financial #: [id number] Pt. Type: P Room/Bed: / Admit/Disch: 02/01/25 13:38:34 - Institution: Case Times FTPM Entry 1 Patient Times In Room 02/01/25 14:48:00 Out Room 02/01/25 15:03:00 Procedure Times Start 02/01/25 14:51:00 Stop 02/01/25 15:02:00 Anesthesia Times Last Modified By: Lupe Pemberton RN 02/01/25 15:03:11 Case Attendance FTPM Entry 1 Entry 2 Entry 3 Case Attendee Dominic Guzman DO, RN, Lupe Meneses RN, Vito Morrow Role Performed Surgeon - Primary Nurse Anesthesia Program Director - Primary Scrub - Primary Time In 02/01/25 14:48:00 02/01/25 14:48:00 02/01/25 14:48:00 Time Out 02/01/25 15:03:00 02/01/25 15:03:00 02/01/25 15:03:00 Procedure LUMBAR RADIO FREQUENCY LUMBAR RADIO FREQUENCY LUMBAR RADIO FREQUENCY ABLATION(Right) ABLATION(Right) ABLATION(Right) Comments Last Modified By: Nilay JACKSON, Lupe Pemberton RN, Lupe Ruelas RN 02/01/25 15:03:12 02/01/25 15:03:12 02/01/25 15:03:12 Entry 4 Case Attendee Bolivar Clayton Role Performed Hogshead Head Matcher Time In 02/01/25 14:48:00 Time Out 02/01/25 15:03:00 Procedure LUMBAR RADIO FREQUENCY ABLATION(Right) Comments Last Modified By: Lupe Pemberton RN 02/01/25 15:03:12 Perioperative Protocols FTPM Pre-Care Text: Implements protective measures prior to operative or invasive procedure, confirms identity before the operative or invasive procedure, verifies operative procedure, surgical site, and laterality Entry 1 Procedure(s) LUMBAR RADIO FREQUENCY Patient Identity Birthday, ID Band ABLATION(Right) Verified (select at Check, Patient least 2): Participation Consents / H and P H&P, Surgery/Procedure Operative Site Present Verified Consent Marking Verified Surgical Site Yes Laterality Verified Yes Verified Procedure Verified Yes Correct Patient Yes Position Verified Availability Equipment, Medication, Prep Dry Yes Verified (If X-ray Applicable) PreOp Antibiotic No Time Out Lupe Pemberton RN, Gideon JACKSON, Marci James DO, Bradford A., Bolivar Clayton Time Out Complete 02/01/25 14:48:00 Outcomes Met? Yes Last Modified By: Lupe Pemberton RN 02/01/25 14:49:08 Post-Care Text: The patient is free from signs and symptoms of injury caused by extraneous objects Allergy Information FTPM Pre-Care Text: Verifies allergies Entry 1 Allergies Reviewed? Yes Allergies Reviewed Self/Patient With Outcomes Met? Yes Last Modified By: Lupe Pemberton RN 02/01/25 14:48:07 Post-Care Text: The patient received appropriate medication(s) safely administered during the perioperative period Surgical Procedures FTPM Entry 1 Procedure Description Procedure LUMBAR RADIO FREQUENCY Modifiers Right ABLATION Surgeon Description MB RFA COVERING THE L4-S1 FACET JTS Primary Procedure Yes Primary Surgeon Dominic Guzman DO Start 02/01/25 14:51:00 Stop 02/01/25 15:02:00 Anesthesia Type None Surgical Service Pain Management Wound Class 1 - Clean Last Modified By: Lupe Pemberton RN 02/01/25 15:03:14 General Case Data FTPM Pre-Care Text: Classifies surgical wound, implements aseptic technique, initiates traffic control Entry 1 Case Information OR Pain Proc Room Case Level Level 2 Wound Class 1 - Clean Specialty Pain Management Preop Diagnosis M47.816 Postop Same As Preop Yes Postop Diagnosis M47.816 Outcomes Met? Yes Last Modified By: Lupe Pemberton RN 02/01/25 14:49:18 Post-Care Text: The patient is free from signs and symptoms of infection Skin Assessment (Pre Procedure) FTPM Pre-Care Text: Implements protective measures to prevent skin/ tissue injury due to thermal or mechanical sources Evaluates for signs and symptoms of physical injury to skin and tissue Entry 1 Skin Integrity Intact, [place], Warm, & Skin Abnormality No Dry Outcomes Met? Yes Last Modified By: Lupe Pemberton RN 02/01/25 14:48:15 Post-Care Text: The patient is free from signs and symptoms of injury caused by extraneous objects Patient Positioning FTPM Pre-Care Text: Identifies physical alterations that require additional precautions for procedure-specific positioning, verifies presence of prosthetics or corrective devices, positions the patient, evaluates the patient for signs and symptoms of injury as a result of positioning Entry 1 Procedure LUMBAR RADIO FREQUENCY Body Position Prone ABLATION(Right) Feet Uncrossed? Yes Left Arm Position Resting at Side Right Arm Position Resting at Side Left Leg Position Extended Right Leg Position Extended Positioning Device Pillow Under Head Large, Safety Strap, Pillow Large Und (more content not included)...[facility] Main OR Preoperative Recordon [id number] OR Preoperative RecordMain OR Preoperative Record Holding Area Document Type FTPM Summary Primary Physician: Dominic Guzman DO Finalized Date/Time: 02/01/25 13:43:29 Pt. Name: BERNARDO JIMENEZ/Sex: 1965 Male Med Rec #: [id number] Physician: Dominic Guzman DO Financial #: [id number] Pt. Type: P Room/Bed: / Admit/Disch: 02/01/25 13:38:34 - Institution: Case Times Holding FTPM Pre-Care Text: Verifies consent for planned procedure, identifies individual values and wishes concerning care, includes family members in perioperative teaching Secures patient's records' belongings, and valuables, maintains patient's dignity and privacy, and maintains patient confidentiality Entry 1 In Holding 02/01/25 13:41:00 Outcomes Met? Yes Last Modified By: Jnaet Erazo RN 02/01/25 13:41:24 Post-Care Text: The patient participates in decisions affecting his or her perioperative plan of care The patient'sright to privacy is maintained Surgery Checklist FTPM Entry 1 Patient Birthday, ID Band Procedure History and Physical, Identification: Check, Patient Verification: Surgical Consent, With Participation Patient NPO after Midnight: No Date/Time: 02/01/25 11:00:00 Personal Items: Glasses Limitations: 06/22 Complaints of Pain: Yes Pain Comment: low back pain Operative Site Yes Marked By: Marking: Location: Right L4-S1 Availability Equipment, X-Ray Verified: Does Patient Smoke No Patient states Yes Comment - Adult krissy postop adult Supervision supervision available Case Cancelled in No Holding Area see comments below for reason Last Modified By: Janet Erazo RN 02/01/25 13:43:25 General Comments: meatloaf Finalized By: Janet Erazo RN Document Signatures Signed By: Janet Erazo RN 02/01/25 13:43No[facility] HospitalOperative Reporton [id number] ReportOperative Report Diagnosis: M47.816, bilateral lumbar spondyloarthropathy Procedure: Right lumbar medial branches/posterior rami radiofrequency ablation to target the facet joints of L4/5 and L5/S1 Anesthesia: Local Complications: None After informed consent was obtained, the patient was brought to the procedure room and placed in the prone position. The back area is prepped and draped in usual sterile fashion. The patient was placed on monitors. Using fluoroscopic guidance skin and subcutaneous tissue overlying needle trajectories to the target sites were anesthetized with 2% lidocaine. 20-gauge radiofrequency needles were advanced under fluoroscopic guidance to the appropriate anatomic landmarks. Needle tip position was confirmed in both the AP and lateral views. Next, all levels on the right were stimulated at 2Hz for motor stimulation at 2.0V with no lower extremity motor contractions. Next 1.0mL of 2.0% lidocaine wasinjected through each needle tip. Thereafter, radiofrequency lesioning was carried out at 80 degrees for 80 seconds twice. The needles were removed. The patient was then transferred to the recovery room in stable condition. Postprocedure lower extremity strength 5/5 bilaterally in hip flexors, quads, hamstrings, plantarflexion/dorsiflexion/FHL/EHL. Follow-up: Discharge instructions provided. The patient agrees to continue currently prescribed/recommended therapies.[facility] HospitalComment on above:Result Comment: Electronically Signed By: Dominic Guzman DO\.br\Date and Time Signed: 02/01/25 15:04 EDTMain OR Intraoperative Recordon 01-11-2025 Main OR Intraoperative RecordMain OR Intraoperative Record IntraOp Document Type FT Summary Primary Physician: Dominic Guzman DO Finalized Date/Time: 01/11/25 08:49:51 Pt. Name: BERNARDO JIMENEZ/Sex: 1965 Male Med Rec #: [id number] Physician: Dominic Guzman DO Financial #: [id number] Pt. Type: P Room/Bed: / Admit/Disch: 01/11/25 07:37:53 - Institution: Case Times FTPM Entry 1 Patient Times In Room 01/11/25 08:41:00 Out Room 01/11/25 08:50:00 Procedure Times Start 01/11/25 08:44:00 Stop 01/11/25 08:49:00 Anesthesia Times Last Modified By: Vito Meneses RN 01/11/25 08:49:36 Case Attendance FTPM Entry 1 Entry 2 Entry 3 Case Attendee Marci GUZMAN, Dominic Lyles RN, Vanessa Meneses RN, Vito Morrow Role Performed Surgeon - Primary Scrub - Primary Nurse Anesthesia Program Director - Primary Time In 01/11/25 08:41:00 01/11/25 08:41:00 01/11/25 08:41:00 Time Out 01/11/25 08:50:00 01/11/25 08:50:00 01/11/25 08:50:00 Procedure MEDIAL BRANCH MEDIAL BRANCH MEDIAL BRANCH BLOCK(Right) BLOCK(Right) BLOCK(Right) Comments Neha Oakes Last Modified By: Gideon JACKSON, Vito Meneses RN, Vito Haro RN 01/11/25 08:49:37 M 01/11/25 08:49:37 M 01/11/25 08:49:37 Entry 4 Case Attendee Stacia DAMON(Ravi)Jenifer Role Performed Hogshead Head Matcher Time In 01/11/25 08:41:00 Time Out 01/11/25 08:50:00 Procedure MEDIAL BRANCH BLOCK(Right) Comments Last Modified By: Vito Meneses RN 01/11/25 08:49:37 Perioperative Protocols FTPM Pre-Care Text: Implements protective measures prior to operative or invasive procedure, confirms identity before the operative or invasive procedure, verifies operative procedure, surgical site, and laterality Entry 1 Procedure(s) MEDIAL BRANCH Patient Identity Birthday, ID Band BLOCK(Right) Verified (select at Check, Patient least 2): Participation Consents / H and P H&P, Surgery/Procedure Operative Site Present Verified Consent Marking Verified Surgical Site Yes Laterality Verified Yes Verified Procedure Verified Yes Correct Patient Yes Position Verified Availability Equipment, Medication, Prep Dry Yes Verified (If X-ray Applicable) Time Out Vito Meneses RN Time Out Complete 01/11/25 08:41:00 Rafal Núñez RN, Vanessa Liu, Dominic Guzman DO, Stacia DAMON(R), Jenifer Outcomes Met? Yes Last Modified By: Vito Meneses RN 01/11/25 08:42:14 Post-Care Text: The patient is free from signs and symptoms of injury caused by extraneous objects Allergy Information FTPM Pre-Care Text: Verifies allergies Entry 1 Allergies Reviewed? Yes Allergies Reviewed Self/Patient With Outcomes Met? Yes Last Modified By: Vito Meneses RN 01/11/25 08:42:21 Post-Care Text: The patient received appropriate medication(s) safely administered during the perioperative period Surgical Procedures FTPM Entry 1 Procedure Description Procedure MEDIAL BRANCH BLOCK Modifiers Right Surgeon Description MBB COVERING L4-S1 FACET JTS Primary Procedure Yes Primary Surgeon Dominic Guzman DO Start 01/11/25 08:44:00 Stop 01/11/25 08:49:00 Anesthesia Type None Surgical Service Pain Management Wound Class 1 - Clean Last Modified By: Vito Meneses RN 01/11/25 08:49:45 General Case Data FTPM Pre-Care Text: Classifies surgical wound, implements aseptic technique, initiates traffic control Entry 1 Case Information OR Pain Proc Room Case Level Level 2 Wound Class 1 - Clean Specialty Pain Management Preop Diagnosis M47.816 Postop Same As Preop Yes Postop Diagnosis M47.816 Outcomes Met? Yes Last Modified By: Vito Meneses RN 01/11/25 08:42:32 Post-Care Text: The patient is free from signs and symptoms of infection Skin Assessment (Pre Procedure) FTPM Pre-Care Text: Implements protective measures to prevent skin/ tissue injury due to thermal or mechanical sources Evaluates for signs and symptoms of physical injury to skin and tissue Entry 1 Skin Integrity Intact, [place], Warm, & Skin Abnormality No Dry Outcomes Met? Yes Last Modified By: Vito Meneses RN 01/11/25 08:42:42 Post-Care Text: The patient is free from signs and symptoms of injury caused by extraneous objects Patient Positioning FTPM Pre-Care Text: Identifies physical alterations that require additional precautions for procedure-specific positioning, verifies presence of prosthetics or corrective devices, positions the patient, evaluates the patient for signs and symptoms of injury as a result of positioning Entry 1 Procedure MEDIAL BRANCH Body Position Prone BLOCK(Right) Feet Uncrossed? Yes Left Arm Position Resting at Side Right Arm Position Resting at Side Left Leg Position Extended Right Leg Position Extended Positioning Device Pillow Under Head Large, Safety Strap, Pillow Large Under Knees Press Points Checked Yes By Vito Meneses RN Outcomes Met? Yes (more content not included)...[facility] [id number] OR Preoperative RecordMain OR Preoperative Record Holding Area Document Type FTPM Summary Primary Physician: Dominic Guzman DO Finalized Date/Time: 01/11/25 07:58:18 Pt. Name: BERNARDO JIMENEZ/Sex: 1965 Male Med Rec #: [id number] Physician: Dominic Guzman DO Financial #: [id number] Pt. Type: P Room/Bed: / Admit/Disch: 01/11/25 07:37:53 - Institution: Case Times Holding FTPM Pre-Care Text: Verifies consent for planned procedure, identifies individual values and wishes concerning care, includes family members in perioperative teaching Secures patient's records' belongings, and valuables, maintains patient's dignity and privacy, and maintains patient confidentiality Entry 1 In Holding 01/11/25 07:53:00 Outcomes Met? Yes Last Modified By: Nichole Gross RN 01/11/25 07:53:13 Post-Care Text: The patient participates in decisions affecting his or her perioperative plan of care The patient'sright to privacy is maintained Surgery Checklist FTPM Entry 1 Patient Birthday, ID Band Procedure History and Physical, Identification: Check, Patient Verification: Surgical Consent, With Participation Patient NPO after Midnight: No Date/Time: 01/11/25 07:53:00 Results Reviewed [id number] piece of pizza Personal Items: Glasses Comments: and water Personal Items Pt. wearing glasses. Complaints of Pain: Yes Comment: Pain Comment: 04/21 lower back pain Operative Site Yes Marking: Marked By: Dr. Guzman Location: [facility] L4-S1 Availability Equipment, X-Ray Verified: Does Patient Smoke No Patient states Yes Comment - Adult friend-Krissy postop adult Supervision supervision available Case Cancelled in No Holding Area see comments below for reason Last Modified By: Nichole Gross RN 01/11/25 07:55:57 Finalized By: Nichole Gross RN Document Signatures Signed By: Nichole Gross RN 01/11/25 07:58[facility] Intraoperative Recordon [id number] OR Intraoperative RecordMain OR Intraoperative Record IntraOp Document Type FTPM Summary Primary Physician: Dominic Guzman DO Finalized Date/Time: 12/20/24 12:21:07 Pt. Name: TONYBERNARDO/Sex: 1965 Male Med Rec #: [id number] Physician: Dominic Guzman DO Financial #: [id number] Pt. Type: P Room/Bed: / Admit/Disch: 12/20/24 10:34:51 - Institution: Case Times FTPM Entry 1 Patient Times In Room 12/20/24 12:13:00 Out Room 12/20/24 12:20:00 Procedure Times Start 12/20/24 12:16:00 Stop 12/20/24 12:19:00 Anesthesia Times Last Modified By: Lupe Pemberton RN 12/20/24 12:19:31 Case Attendance FTPM Entry 1 Entry 2 Entry 3 Case Attendee Dominic Guzman DO, RN, Vito Gatica RN Role Performed Surgeon - Primary Nurse Anesthesia Program Director - Primary Scrub - Primary Time In 12/20/24 12:13:00 12/20/24 12:13:00 12/20/24 12:13:00 Time Out 12/20/24 12:20:00 12/20/24 12:20:00 12/20/24 12:20:00 Procedure MEDIAL BRANCH MEDIAL BRANCH MEDIAL BRANCH BLOCK(Right) BLOCK(Right) BLOCK(Right) Comments Last Modified By: Nilay JACKSON, Lupe Pemberton RN, Lupe Ruelas RN 12/20/24 12:19:32 12/20/24 12:19:32 12/20/24 12:19:32 Entry 4 Case Attendee Tsering Carver Role Performed Hogshead Head Matcher Time In 12/20/24 12:13:00 Time Out 12/20/24 12:20:00 Procedure MEDIAL BRANCH BLOCK(Right) Comments Last Modified By: Lupe Pemberton RN 12/20/24 12:19:32 Perioperative Protocols FTPM Pre-Care Text: Implements protective measures prior to operative or invasive procedure, confirms identity before the operative or invasive procedure, verifies operative procedure, surgical site, and laterality Entry 1 Procedure(s) MEDIAL BRANCH Patient Identity Birthday, ID Band BLOCK(Right) Verified (select at Check, Patient least 2): Participation Consents / H and P H&P, Surgery/Procedure Operative Site Present Verified Consent Marking Verified Surgical Site Yes Laterality Verified Yes Verified Procedure Verified Yes Correct Patient Yes Position Verified Availability Equipment, Medication, Prep Dry Yes Verified (If X-ray Applicable) PreOp Antibiotic No Time Out Lupe Pemberton RN, Harvey RN, Marci James DO, Bradford A., Daniel, Alissa M Time Out Complete 12/20/24 12:14:00 Outcomes Met? Yes Last Modified By: Lupe Pemberton RN 12/20/24 12:14:24 Post-Care Text: The patient is free from signs and symptoms of injury caused by extraneous objects Allergy Information FTPM Pre-Care Text: Verifies allergies Entry 1 Allergies Reviewed? Yes Allergies Reviewed Self/Patient With Outcomes Met? Yes Last Modified By: Lupe Pemberton RN 12/20/24 12:13:36 Post-Care Text: The patient received appropriate medication(s) safely administered during the perioperative period Surgical Procedures FTPM Entry 1 Procedure Description Procedure MEDIAL BRANCH BLOCK Modifiers Right Surgeon Description MBB COVERING THE L4-S1 FACET JTS Primary Procedure Yes Primary Surgeon Dominic Guzman DO Start 12/20/24 12:16:00 Stop 12/20/24 12:19:00 Anesthesia Type None Surgical Service Pain Management Wound Class 1 - Clean Last Modified By: Lupe Pemberton RN 12/20/24 12:19:33 General Case Data FTPM Pre-Care Text: Classifies surgical wound, implements aseptic technique, initiates traffic control Entry 1 Case Information OR Pain Proc Room Case Level Level 2 Wound Class 1 - Clean Specialty Pain Management Preop Diagnosis M47.816 Postop Same As Preop Yes Postop Diagnosis M47.816 Outcomes Met? Yes Last Modified By: Lupe Pemberton RN 12/20/24 12:14:39 Post-Care Text: The patient is free from signs and symptoms of infection Skin Assessment (Pre Procedure) FTPM Pre-Care Text: Implements protective measures to prevent skin/ tissue injury due to thermal or mechanical sources Evaluates for signs and symptoms of physical injury to skin and tissue Entry 1 Skin Integrity Intact, [place], Warm, & Skin Abnormality No Dry Outcomes Met? Yes Last Modified By: Lupe Pemberton RN 12/20/24 12:13:43 Post-Care Text: The patient is free from signs and symptoms of injury caused by extraneous objects Patient Positioning FTPM Pre-Care Text: Identifies physical alterations that require additional precautions for procedure-specific positioning, verifies presence of prosthetics or corrective devices, positions the patient, evaluates the patient for signs and symptoms of injury as a result of positioning Entry 1 Procedure MEDIAL BRANCH Body Position Prone BLOCK(Right) Feet Uncrossed? Yes Left Arm Position Resting at Side Right Arm Position Resting at Side Left Leg Position Extended Right Leg Position Extended Positioning Device Pillow Under Head Large, Safety Strap, Pillow Large Under Knees Press Points Checked Yes By Lupe Pemberton RN Outcomes Met? Yes La (more content not included)...[facility] [id number] OR Preoperative RecordMain OR Preoperative Record Holding Area Document Type FTPM Summary Primary Physician: Dominic Guzman DO Finalized Date/Time: 12/20/24 11:29:29 Pt. Name: BERNARDO JIMENEZ/Sex: 1965 Male Med Rec #: [id number] Physician: Dominic Guzman DO Financial #: [id number] Pt. Type: P Room/Bed: / Admit/Disch: 12/20/24 10:34:51 - Institution: Case Times Holding FTPM Pre-Care Text: Verifies consent for planned procedure, identifies individual values and wishes concerning care, includes family members in perioperative teaching Secures patient's records' belongings, and valuables, maintains patient's dignity and privacy, and maintains patient confidentiality Entry 1 In Holding 12/20/24 11:27:00 Outcomes Met? Yes Last Modified By: Soha Wakefield RN 12/20/24 11:27:06 Post-Care Text: The patient participates in decisions affecting his or her perioperative plan of care The patient'sright to privacy is maintained Surgery Checklist FTPM Entry 1 Patient Birthday, Blood Band, Procedure History and Physical, Identification: Patient Participation Verification: Surgical Consent, With Patient NPO after Midnight: No Date/Time: 12/20/24 11:27:00 Results Reviewed 0700 Grape juice and a Personal Items: Glasses Comments: banana Personal Items Patient wearing glasses. Complaints of Pain: Yes Comment: Pain Comment: 05/22 low back pain Operative Site Yes Marking: Marked By: Dr. Guzman Location: Right L4-S1 Availability Equipment, X-Ray Verified: Does Patient Smoke No Patient states Yes Comment - Adult Friend-Krissy postop adult Supervision supervision available Case Cancelled in No Holding Area see comments below for reason Last Modified By: Soha Wakefield RN 12/20/24 11:29:25 Finalized By: Soha Wakefield RN Document Signatures Signed By: Soha Wakefield RN 12/20/24 11:29[facility]ordon [id number] OR Intraoperative RecordMain OR Intraoperative Record IntraOp Document Type FTPM Summary Primary Physician: Dominic Guzman DO Finalized Date/Time: 11/23/24 11:22:04 Pt. Name: BERNARDO JIMENEZ/Sex: 1965 Male Med Rec #: [id number] Physician: Dominic Guzman DO Financial #: [id number] Pt. Type: P Room/Bed: / Admit/Disch: 11/23/24 08:38:52 - Institution: Case Times FTPM Entry 1 Patient Times In Room 11/23/24 11:13:00 Out Room 11/23/24 11:21:00 Procedure Times Start 11/23/24 11:16:00 Stop 11/23/24 11:20:00 Anesthesia Times Last Modified By: Vanessa Lyles RN 11/23/24 11:21:38 Case Attendance FTPM Entry 1 Entry 2 Entry 3 Case Attendee Dominic Guzman DO, RN, Vanessa Meneses RN, Vito Gonzalez Performed Surgeon - Primary Nurse Anesthesia Program Director - Primary Scrub - Primary Time In 11/23/24 11:13:00 11/23/24 11:13:00 11/23/24 11:13:00 Time Out 11/23/24 11:22:00 11/23/24 11:22:00 11/23/24 11:22:00 Procedure SACROILIAC JOINT SACROILIAC JOINT SACROILIAC JOINT INJECTION(Right) INJECTION(Right) INJECTION(Right) Comments Last Modified By: Vanessa Lyles RN, RN, Vanessa Ferreira RN 11/23/24 11:20:15 11/23/24 11:20:15 11/23/24 11:20:15 Entry 4 Case Attendee Radha Fernando Role Performed Hogshead Head Matcher Time In 11/23/24 11:13:00 Time Out 11/23/24 11:22:00 Procedure SACROILIAC JOINT INJECTION(Right) Comments Last Modified By: Vanessa Lyles RN 11/23/24 11:20:15 Perioperative Protocols FTPM Pre-Care Text: Implements protective measures prior to operative or invasive procedure, confirms identity before the operative or invasive procedure, verifies operative procedure, surgical site, and laterality Entry 1 Procedure(s) SACROILIAC JOINT Patient Identity Birthday, ID Band INJECTION(Right) Verified (select at Check, Patient least 2): Participation Consents / H and P H&P, Surgery/Procedure Operative Site Present Verified Consent Marking Verified Surgical Site Yes Laterality Verified Yes Verified Procedure Verified Yes Correct Patient Yes Position Verified Availability Equipment, Medication, Prep Dry Yes Verified (If X-ray Applicable) PreOp Antibiotic No Time Out Vanessa Lyles RN, Given Participants Gideon JACKSON, Marci James DO, Bradford A., Kolb, Madelyn K Time Out Complete 11/23/24 11:13:00 Outcomes Met? Yes Last Modified By: Vanessa Lyles RN 11/23/24 11:21:54 Post-Care Text: The patient is free from signs and symptoms of injury caused by extraneous objects Allergy Information FTPM Pre-Care Text: Verifies allergies Entry 1 Allergies Reviewed? Yes Allergies Reviewed Self/Patient With Outcomes Met? Yes Last Modified By: Vanessa Lyles RN 11/23/24 11:12:44 Post-Care Text: The patient received appropriate medication(s) safely administered during the perioperative period Surgical Procedures FTPM Entry 1 Procedure Description Procedure SACROILIAC JOINT Modifiers Right INJECTION Surgeon Description SIJI Primary Procedure Yes Primary Surgeon Dominic Guzman DO Start 11/23/24 11:20:00 Stop 11/23/24 11:20:00 Anesthesia Type None Surgical Service Pain Management Wound Class 1 - Clean Last Modified By: Vanessa Lyles RN 11/23/24 11:19:11 General Case Data FTPM Pre-Care Text: Classifies surgical wound, implements aseptic technique, initiates traffic control Entry 1 Case Information OR Pain Proc Room Case Level Level 2 Wound Class 1 - Clean Specialty Pain Management Preop Diagnosis M46.1 Postop Same As Preop Yes Postop Diagnosis M46.1 Outcomes Met? Yes Last Modified By: Vanessa Lyles RN 11/23/24 11:14:12 Post-Care Text: The patient is free from signs and symptoms of infection Skin Assessment (Pre Procedure) FTPM Pre-Care Text: Implements protective measures to prevent skin/ tissue injury due to thermal or mechanical sources Evaluates for signs and symptoms of physical injury to skin and tissue Entry 1 Skin Integrity Intact, [place], Warm, & Skin Abnormality No Dry Outcomes Met? Yes Last Modified By: Vanessa Lyles RN 11/23/24 11:12:51 Post-Care Text: The patient is free from signs and symptoms of injury caused by extraneous objects Patient Positioning FTPM Pre-Care Text: Identifies physical alterations that require additional precautions for procedure-specific positioning, verifies presence of prosthetics or corrective devices, positions the patient, evaluates the patient for signs and symptoms of injury as a result of positioning Entry 1 Procedure SACROILIAC JOINT Body Position Prone INJECTION(Right) Feet Uncrossed? Yes Left Arm Position Resting at Side Right Arm Position Resting at Side Left Leg Position Extended Right Leg Position Extended Positioning Device Pillow Under Head Large, Safety Strap, Pillow Large Under Knees Press Points Checked Yes By Vanessa Lyles RN Outcomes Met? Yes Last Modified By: Rafal Rodrigues (more content not included)...[facility] [id number] OR Preoperative RecordMain OR Preoperative Record Holding Area Document Type FTPM Summary Primary Physician: Dominic Guzman DO Finalized Date/Time: 11/23/24 09:04:34 Pt. Name: BERNARDO JIMENEZ/Sex: 1965 Male Med Rec #: [id number] Physician: Dominic Guzman DO Financial #: [id number] Pt. Type: P Room/Bed: / Admit/Disch: 11/23/24 08:38:52 - Institution: Case Times Holding FTPM Pre-Care Text: Verifies consent for planned procedure, identifies individual values and wishes concerning care, includes family members in perioperative teaching Secures patient's records' belongings, and valuables, maintains patient's dignity and privacy, and maintains patient confidentiality Entry 1 In Holding 11/23/24 09:01:00 Outcomes Met? Yes Last Modified By: Janet Erazo RN 11/23/24 09:01:04 Post-Care Text: The patient participates in decisions affecting his or her perioperative plan of care The patient'sright to privacy is maintained Surgery Checklist FTPM Entry 1 Patient Birthday, ID Band Procedure History and Physical, Identification: Check, Patient Verification: Surgical Consent, With Participation Patient NPO after Midnight: No Date/Time: 11/23/24 05:00:00 Personal Items: Glasses Limitations: 07/22 Complaints of Pain: Yes Pain Comment: 07/22 at worst Operative Site Yes Marked By: Marking: Location: right SIJ Availability Equipment, X-Ray Verified: Does Patient Smoke No Patient states Yes Comment - Adult krissy postop adult Supervision supervision available Case Cancelled in No Holding Area see comments below for reason Last Modified By: Janet Erazo RN 11/23/24 09:04:31 General Comments: Breakfast burrito Finalized By: Janet Erazo RN Document Signatures Signed By: Janet Erazo RN 11/23/24 09:04[facility] Recordon [id number] OR Intraoperative RecordMain OR Intraoperative Record IntraOp Document Type FTPM Summary Primary Physician: Dominic Guzman DO Finalized Date/Time: 11/04/24 10:14:57 Pt. Name: BERNARDO JIMENEZ/Sex: 1965 Male Med Rec #: [id number] Physician: Dominic uGzman DO Financial #: [id number] Pt. Type: P Room/Bed: / Admit/Disch: 11/04/24 08:49:09 - Institution: Case Times FTPM Entry 1 Patient Times In Room 11/04/24 10:10:00 Out Room 11/04/24 10:15:00 Procedure Times Start 11/04/24 10:13:00 Stop 11/04/24 10:14:00 Anesthesia Times Last Modified By: Rafal JACKSON, Vanessa Liu 11/04/24 10:14:50 Case Attendance FTPM Entry 1 Entry 2 Entry 3 Case Attendee Dominic Guzman DO, RN, Vanessa Meneses RN, Vito Morrow Role Performed Surgeon - Primary Nurse Anesthesia Program Director - Primary Scrub - Primary Time In 11/04/24 10:10:00 11/04/24 10:10:00 11/04/24 10:10:00 Time Out 11/04/24 10:15:00 11/04/24 10:15:00 11/04/24 10:15:00 Procedure TRANSFORAMINAL EPIDURAL TRANSFORAMINAL EPIDURAL TRANSFORAMINAL EPIDURAL STEROID INJECTIO(Right, STEROID INJECTIO(Right, STEROID INJECTIO(Right, .) .) .) Comments Last Modified By: Rafal JACKSON, Vanessa Lyles RN, Vanessa Lyles RN, Vanessa Liu 11/04/24 10:14:51 11/04/24 10:14:51 11/04/24 10:14:51 Entry 4 Entry 5 Case Attendee Kacey JACKSON, Radha Lion Role Performed Scrub - Relief Hogshead Head Matcher Time In 11/04/24 10:10:00 11/04/24 10:10:00 Time Out 11/04/24 10:15:00 11/04/24 10:15:00 Procedure TRANSFORAMINAL EPIDURAL TRANSFORAMINAL EPIDURAL STEROID INJECTIO(Right, STEROID INJECTIO(Right, .) .) Comments Last Modified By: Rafal JACKSON, Vanessa Lyles RN, Vanessa Liu 11/04/24 10:14:51 11/04/24 10:14:51 Perioperative Protocols FTPM Pre-Care Text: Implements protective measures prior to operative or invasive procedure, confirms identity before the operative or invasive procedure, verifies operative procedure, surgical site, and laterality Entry 1 Procedure(s) TRANSFORAMINAL EPIDURAL Patient Identity Birthday, ID Band STEROID INJECTIO(Right, Verified (select at Check, Patient .) least 2): Participation Consents / H and P H&P, Surgery/Procedure Operative Site Present Verified Consent Marking Verified Surgical Site Yes Laterality Verified Yes Verified Procedure Verified Yes Correct Patient Yes Position Verified Availability Equipment, Medication, Prep Dry Yes Verified (If X-ray Applicable) PreOp Antibiotic No Time Out Kacey JACKSON, Janet Silverio, Given Participants Radha Fernando, Rafal JACKSON, Gideon Murillo RN, Vito Morrow, Dominic Guzman DO Time Out Complete 11/04/24 10:10:00 Outcomes Met? Yes Last Modified By: Vanessa Lyles RN 11/04/24 10:11:07 Post-Care Text: The patient is free from signs and symptoms of injury caused by extraneous objects Allergy Information FTPM Pre-Care Text: Verifies allergies Entry 1 Allergies Reviewed? Yes Allergies Reviewed Self/Patient With Outcomes Met? Yes Last Modified By: Vanessa Lyles RN 11/04/24 10:09:41 Post-Care Text: The patient received appropriate medication(s) safely administered during the perioperative period Surgical Procedures FTPM Entry 1 Procedure Description Procedure TRANSFORAMINAL EPIDURAL Modifiers Right, . STEROID INJECTION Surgeon Description R L5/S1 TFESI Primary Procedure Yes Primary Surgeon Dominic Guzman DO Start 11/04/24 10:13:00 Stop 11/04/24 10:14:00 Anesthesia Type None Surgical Service Pain Management Wound Class 1 - Clean Last Modified By: Vanessa Lyles RN 11/04/24 10:14:52 General Case Data FTPM Pre-Care Text: Classifies surgical wound, implements aseptic technique, initiates traffic control Entry 1 Case Information OR Pain Proc Room Case Level Level 2 Wound Class 1 - Clean Specialty Pain Management Preop Diagnosis M54.16 Postop Same As Preop Yes Postop Diagnosis M54.16 Outcomes Met? Yes Last Modified By: Vanessa Lyles RN 11/04/24 10:11:22 Post-Care Text: The patient is free from signs and symptoms of infection Skin Assessment (Pre Procedure) FTPM Pre-Care Text: Implements protective measures to prevent skin/ tissue injury due to thermal or mechanical sources Evaluates for signs and symptoms of physical injury to skin and tissue Entry 1 Skin Integrity Intact, [place], Warm, & Skin Abnormality No Dry Outcomes Met? Yes Last Modified By: Vanessa Lyles RN 11/04/24 10:09:48 Post-Care Text: The patient is free from signs and symptoms of injury caused by extraneous objects Patient Positioning FTPM Pre-Care Text: Identifies physical alterations that require additional precautions for procedure-specific positioning, verifies presence of prosthetics or corrective devices, positions the patient, evaluates the patient for signs and symptoms of injury as a result of positioning Entry 1 Procedure TRANSFORAMINAL EPIDURAL Body Position Prone STEROID INJECTIO(Right, .) Feet Uncross (more content not included)...[facility] Recordon [id number] OR Preoperative RecordMain OR Preoperative Record Holding Area Document Type FTPM Summary Primary Physician: Dominic Guzman DO Finalized Date/Time: 11/04/24 09:20:17 Pt. Name: BERNARDO JIMENEZ/Sex: 1965 Male Med Rec #: [id number] Physician: Dominic Guzman DO Financial #: [id number] Pt. Type: P Room/Bed: / Admit/Disch: 11/04/24 08:49:09 - Institution: Case Times Holding FTPM Pre-Care Text: Verifies consent for planned procedure, identifies individual values and wishes concerning care, includes family members in perioperative teaching Secures patient's records' belongings, and valuables, maintains patient's dignity and privacy, and maintains patient confidentiality Entry 1 In Holding 11/04/24 09:18:00 Outcomes Met? No Last Modified By: Francine Hutchison RN 11/04/24 09:18:46 Post-Care Text: The patient participates in decisions affecting his or her perioperative plan of care The patient'sright to privacy is maintained Surgery Checklist FTPM Entry 1 Patient Birthday, ID Band Procedure History and Physical, Identification: Check, Patient Verification: Surgical Consent, With Participation Patient NPO after Midnight: No Date/Time: 11/04/24 07:00:00 Personal Items: Glasses Complaints of Pain: Yes Pain Comment: 03/22 low back right hip Operative Site Yes Marking: Marked By: marci Location: right Availability Equipment, X-Ray Verified: Does Patient Smoke No Patient states Yes Comment - Adult krissy partner postop adult Supervision supervision available Case Cancelled in No Holding Area see comments below for reason Last Modified By: Francine Hutchison RN 11/04/24 09:20:12 General Comments: adan kelly Finalized By: Francine Hutchison RN Document Signatures Signed By: Francine Hutchison RN 11/04/24 09:20[facility]on 09/07/2024 03/01/2025 HIV Quantitative RNA Date Value 09/07/2024 Comment: Not Detected 09/17/2022 Not Detected copies/mL CD4 Abs (cells/mm3) Date Value 09/07/2024 1,692 (H) Creatinine (mg/dL) Date Value 09/07/2024 1.52 (H)[facility]3609/07/2024 03/01/2025 HIV Quantitative RNA Date Value 09/07/2024 Comment: Not Detected 09/17/2022 Not Detected copies/mL CD4 Abs (cells/mm3) Date Value 09/07/2024 1,692 (H) Creatinine (mg/dL) Date Value 09/07/2024 1.52 (H)[facility]2024 [id number] Bernardo Jimenez 1965 M Date Provider Department Center 10/04/2024 HERRERA AGUIRRE [facility] Family History Problem Relation Age of Onset Hypertension Mother Colon cancer Mother Colon cancer Father Hypertension Father Other Father Family Status - Relation Status Age at Mother Father Reason for Visit and Comments: Med Refill [[id number]][facility]MR LUMBAR SPINE WO CONTRASTon [id number] LUMBAR SPINE WO CONTRASTEXAMINATION/TECHNIQUE: MR LUMBAR SPINE WO CONTRAST HISTORY: Low back pain. Right and left leg numbness. Right knee pain. COMPARISON: Radiographs 09/13/2024. RESULT: Counting reference: Lumbosacral junction. For the purposes of this report, L5-S1 is considered the last well-formed disc space. 5 lumbar type vertebral bodies. Alignment: Alignment is anatomic. Bone marrow signal: No evidence for recent fracture. No pathologic marrow infiltration. Endplate degenerative signal at L4-L5 and L5-S1. Disc height loss at L4-L5 and L5-S1. Conus: Normal signal and morphology. Paraspinal soft tissues: Small T2 hypointense renal lesions bilaterally, probably representing hemorrhagic or proteinaceous cysts. Otherwise grossly unremarkable. Lower thoracic spine: Visualized lower thoracic canal and foramina without significant narrowing. T12-L1: No significant canal or foraminal narrowing. L1-L2: No significant canal or foraminal narrowing. L2-L3: No significant canal or foraminal narrowing. L3-L4: No significant canal or foraminal narrowing. L4-L5: Broad-based disc bulge. Endplate osteophytes. Facet degenerative changes. Mild bilateral foraminal narrowing without significant canal narrowing. L5-S1: Broad-based disc bulge. Endplate osteophytes. Facet degenerative changes. Moderate bilateralforaminal narrowing without significant canal narrowing. Sacrum and iliac wings: The visualized sacrum and iliac wings are unremarkable. IMPRESSION: Degenerative changes lumbar spine as discussed. 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 Previous MRI of kneeXR Lumbar spine 4 Viewson [id number] Result: AP lateral and obliques of the lumbar spine with coned-down demonstrating significant degenerative disc disease of the lower L4-5 L5-S1 with facet hypertrophy and neural foraminal encroachment no evidence of bony tumor acute fracture seenNOSaint Joseph Hospital of [facility] HealthcareXR Lumbar spine 4 Viewson [id number] Study observation (narrative)[facility] WITH AUTO DIFFERENTIALon 12-49-4898Vnzwkzrkyfo distribution width (RBC) [Ratio] 12.6 %Lvyyhq95.5-15.0UnFostoria City HospitalComment on above: Performed By: #### [id number] #### [facility] ([facility]) [address] [place], [place] [id number] MEAN CORPUSCULAR HEMOGLOBIN CONCENTRATION (G/DL) BY HSBPVXWGY90.0 g/uJUgytci11.0-35.0UnFostoria City HospitalComment on above:Performed By: #### [id number] #### [facility] ([facility]) [address] [place] [address]Cfffwznrwn (Bld) [Volume fraction]48.6 %Ebuzau41.0-55.0 [facility] CampusComment on above:Performed By: #### [id number] #### [facility] ([facility]) [address] [place] [address]Cpgtzighlx (Bld) [Mass/Vol]16.5 g/iELziehr33.0-17.0UnFostoria City HospitalComment on above:Performed By: #### [id number] #### [facility] ([facility]) [address] [place] [address]JXH (RBC) [Entitic mass]31.7 npFdojyh33.0-33.0UnFostoria City HospitalComment on above:Performed By: #### [id number] #### [facility] ([facility]) [address] [place] [place] [address]HRZ (RBC) [Entitic vol]93.5 tLItjtie87.0-98.0UnFostoria City HospitalComment on above:Performed By: #### [id number] #### [facility] ([facility]) [address] [place] [address]MADF (PER 100 WBCS) BY AUTOMATED COUNT0.0 %Uhutgm0HxsjtliockFostoria City HospitalComment on above:Performed By: #### [id number] #### [facility] ([facility]) [address] [place] [address]HEAZCUDZU (10*3/UL) IN BLOOD AUTOMATED [id number] 10*3/uLNormal 150-400UnFostoria City HospitalComment on above:Performed By: #### [id number] #### [facility] ([facility]) [address] [place] [address]HUY (Bld) [#/Vol]5.20 10*6/uLNormal4.20-5.70UnFostoria City HospitalComment on above:Performed By: #### [id number] #### [facility] ([facility]) [address] [place], [place] [address]MLE (Bld) [#/Vol]13.83 10*3/uLHigh4.00-10.60UnFostoria City HospitalComment on above:Performed By: #### [id number] #### [facility] ([facility]) [address] [place], [place] [address]LJXYLGCAV TRACHOMATIS AND NEISSERIA GONORRHEA, TMAon 09-07-2024 CHLAMYDIA TRACHOMATIS DNA PROBE (PRESENCE) IN UNSP SPECNegativeNormalNegative [facility] CampusComment on above:Result Comment: No Chlamydia trachomatis rRNA Detected. The Aptima Combo 2 Assay is a FDA approved target amplification nucleic acid probe test that utilizes target capture for the in vitro qualitative detection and differentiation of ribosomal RNA (rRNA)from Chlamydia trachomatis (CT) and/or Neisseria gonorrhoeae (GC) to aid the diagnosis of chlamydial and/or gonococcal urogenital disease using the Fairplay System. The Aptima Combo 2 Assay involves target capture, target amplification by Business Banking Sales Assistant-Mediated Amplification (TMA), and the detection of the amplification products (amplicon) by the Hybridization Protection Assay (HPA). The internal process controls of the Fairplay System monitor the target capture, amplification, and detection steps of the assay, this is not intended to control for sampling adequacy.Performed By: #### [id number] ####[facility] ([facility])[address] [place], [place] [address]CBRUSOIRU GONORRHOEAE DNA PROBE (PRESENCE) IN UNSP SPECNegativeNormalNegativeUnFostoria City Hospital Comment on above:Result Comment: No Neisseria gonorrhoeae rRNA Detected. The Aptima Combo 2 Assay is a FDA approved target amplification nucleic acid probe test that utilizes target capture for the in vitro qualitative detection and differentiation of ribosomal RNA (rRNA)from Chlamydia trachomatis (CT) and/or Neisseria gonorrhoeae (GC) to aid the diagnosis of chlamydial and/or gonococcal urogenital disease using the Fairplay System. The Aptima Combo 2 Assay involves target capture, target amplification by Business Banking Sales Assistant-Mediated Amplification (TMA), and the detection of the amplification products (amplicon) by the Hybridization Protection Assay (HPA). The internal process controls of the Fairplay System monitor the target capture, amplification, and detection steps of the assay, this is not intended to control for sampling adequacy.Performed By: #### [id number] ####[facility] ([facility])[address], [place] [address]JFLMMTIAASBPU METABOLIC PANELon 09-34-7173Mwuwqks [Mass/Vol]4.7 g/dLNormal3.5-5.7UnFostoria City HospitalComment on above:Performed By: #### [id number] ####[facility] ([facility])[address] [place] [address]PUI [Catalytic activity/Vol]57 U/L Wgdjmn68-834QdfanspwjyFostoria City HospitalComment on above:Performed By: #### [id number] ####[facility] ([facility])[address], [place] [address]XFV [Catalytic activity/Vol]43 U/LNormal7-52UnFostoria City Hospital Comment on above:Performed By: #### [id number] ####[facility] ([facility])[address], [place] [address]Akqbu gap [Moles/Vol]14 mmol/LNormal7-20UnFostoria City HospitalComment on above:Performed By: #### [id number] ####[facility] ([facility])[address], [place] [address]MBW [Catalytic activity/Vol]37 U/HOysxfe28-32UhawobcdalFostoria City HospitalComment on above:Performed By: #### [id number] ####[facility] ([facility])[address], [place] [address]Cooqntjqy [Mass/Vol]1.6 mg/dLHigh0.3-1.0UnFostoria City HospitalComment on above:Performed By: #### [id number] ####[facility] ([facility])[address] [place] [address]Xngidjj [Mass/Vol]9.0 mg/dLNormal 8.6-10.3UnFostoria City HospitalComment on above:Performed By: #### [id number] ####[facility] ([facility])[address] [place] [address]Jizdpunn [Moles/Vol]99 mmol/JRkwccl91-141JafwwraesfFostoria City HospitalComment on above:Performed By: #### [id number] ####[facility] ([facility])[address] [place] [address]WJ4 [Moles/Vol]26 mmol/SYgrewt53-51XbgsbxdwnwFostoria City HospitalComment on above:Performed By: #### [id number] ####[facility] ([facility])[address] [place] [address]Zluuvcbyxd [Mass/Vol]1.52 mg/dLHigh 0.70-1.30UnFostoria City HospitalComment on above:Performed By: #### [id number] ####[facility] ([facility])[address], [place] [address]CULPFSSTKZ FILTRATION RATE ML/MIN/1.73 SQ M.NLHJJXOZE74.8 mL/min/1.73m*2Low>60.0UnFostoria City HospitalComment on above:Result Comment: The [facility]???s estimated glomerular filtration rate (eGFR) will no longer include consideration of race in its calculation. The National Kidney Foundation???s eGFR Task Force developed new recommendations for the estimation of the glomerular filtration rate in the [place] They recommend immediate implementation of the new equation refit without the race variable in all laboratories because the calculation does not include race. In addition to not including race in the calculation and reporting, it included diversity in its development, and has acceptable performance characteristics and potential consequences that do not disproportionately affect anyone group of individuals. Performed By: #### [id number] ####[facility] ([facility])[address], [place] [address]Fkdehgf [Mass/Vol]95 mg/oBGmxucq87-382XllnrbrikvFostoria City HospitalComment on above:Performed By: #### [id number] ####[facility] ([facility])[address] [place] [place] [address]Tgtzaxiau [Moles/Vol]4.6 mmol/LNormal 3.5-5.1UnFostoria City HospitalComment on above:Performed By: #### [id number] ####[facility] ([facility])[address], [place] [address]Trgqyyo [Mass/Vol]7.7 g/dLNormal6.0-8.3UnFostoria City HospitalComment on above:Performed By: #### [id number] ####[facility] ([facility])[address] [place] [address]Dvwigv [Moles/Vol]134 mmol/DNgv887-115MavxonyiiiFostoria City HospitalComment on above:Performed By: #### [id number] ####[facility] ([facility])[address] [place], [place] [address]Coem nitrogen [Mass/Vol]24 mg/dLNormal 7-25UnFostoria City HospitalComment on above:Performed By: #### [id number] ####[facility] ([facility])[address] [place], [place] [address]EIZR NITROGEN/CREATININE (MASS RATIO) IN SER/PLAS15.8NormalUniversCleveland ClinicComment on above:Performed By: #### [id number] ####[facility] ([facility])[address] [place] [place] [address]Rjapxawgyjeziod 09-07-2024 [id number] Bernardo Jimenez 1965 M Date Provider Department Center 09/07/2024 [facility] Ruben Heal Family History Problem Relation Age of Onset Hypertension Mother Colon cancer Mother Colon cancer Father Hypertension Father Other Father Family Status - Relation Status Age at Mother Father Reason for Visit and Comments: Care Plan DUE 02/2025 [Other]NormalUnFostoria City HospitalLIPID PANEL on 65-13-2251DUCN/HDL2.3 mg/dLNormalUniversity of Foss Medical CenterComment on above:Performed By: #### [id number] #### [facility] ([facility]) [address] [place] [place], [place] [address]Ruatjcwuplx [Mass/Vol]213 mg/uROrjk028-281SdtwpoepmzFostoria City HospitalComment on above:Performed By: #### [id number] #### [facility] ([facility]) [address] [place], [place] [address]Ffdvhypmm [Mass/Vol]122 mg/iHIlhgdr66-913ZjggnixkxgFostoria City HospitalComment on above:Result Comment: TRIGLYCERIDE REFERENCE RANGE: 20 YEARS AND OLDER CARDIOVASCULAR RISK LESS THAN 150 mg/dL LOW RISK 150 TO 199 mg/dL BORDERLINE RISK 200 mg/dL AND GREATER HIGH RISKPerformed By: #### [id number] #### [facility] ([facility]) [address] [place], [place] [address]Wyxyltesg [Mass/Vol]95 mg/dLNormal0-160UnFostoria City HospitalComment on above:Performed By: #### [id number] #### [facility] ([facility]) [address] [place] [place] [address]Tecnsqxzm [Mass/Vol]94 mg/nMKvwy30-37HdmcipkzcsFostoria City HospitalComment on above:Performed By: #### [id number] #### [facility] ([facility]) [address] [place] [place], [place] [address]ZPK HDL CHOL. (LDL+VLDL)119NormalUniversCleveland ClinicComment on above:Performed By: #### [id number] #### [facility] ([facility] [address] [facility] [place], [place] [address]YMDVV VLDL-C24 mg/dLNormal0-40UnFostoria City HospitalComment on above:Performed By: #### [id number] #### [facility] ([facility]) [address] [place] [place], [place] [address]Bhwxv [id number] Bernardo Jimenez 1965 M Date Provider Department Center 09/07/2024 224-[facility] MP LAB RESOURCE MP DRAW Medical Pavi Family History Problem Relation Age of Onset Hypertension Mother Colon cancer Mother Colon cancer Father Hypertension Father Other Father Family Status - Relation Status Age at Mother Father DeceasedNormalUniversCleveland ClinicMANUAL DIFFERENTIALon 67-24-1975UCZXJLVXS (10*3/UL) IN BLOOD BY CALCULATION0.10 10*3/uLNormal0.00-0.20 [facility] CampusComment on above:Performed By: #### [id number] ####[facility] ([facility])[address] [place], [place] [address]CQRHQIIVZ/100 LEUKOCYTES IN BLOOD BY AUTOMATED COUNT0.7 %Normal0.0-1.0UnFostoria City HospitalComment on above:Performed By: #### [id number] ####[facility] ([facility])[address] [place], [place] [address]SPFAEVMUUYD (10*3/UL) IN BLOOD BY CALCULATION0.11 10*3/uLNormal0.00-0.50UnFostoria City HospitalComment on above:Performed By: #### [id number] ####[facility] ([facility])[address] [place], [place] [address]ZBTFNXIYPHP/100 LEUKOCYTES IN BLOOD BY AUTOMATED COUNT0.8 %Normal0.0-6.0UnFostoria City HospitalComment on above: Performed By: #### [id number] ####[facility] ([facility])[address] [place], [place] [address]VHLSQCOT GRANULOCYTES (10*3/UL) IN BLOOD BY CALCULATION0.10 10*3/uLNormal0.00-0.20UnFostoria City HospitalComment on above: Performed By: #### [id number] ####[facility] ([facility])[address] [place], [place] [address]RNEWMIFD GRANULOCYTES/100 LEUKOCYTES IN BLOOD BY AUTOMATED COUNT0.7 %Normal0.0-1.0UnFostoria City HospitalComment on above: Performed By: #### [id number] ####[facility] ([facility])[address] [place], [place] [address]UEMQYDVUAXA (10*3/UL) IN BLOOD BY CALCULATION5.12 10*3/uLHigh 1.20-4.00UnFostoria City HospitalComment on above:Performed By: #### [id number] ####[facility] ([facility])[address] [place] [address] LYMPHOCYTES/100 LEUKOCYTES IN BLOOD BY AUTOMATED COUNT37.0 %Mdhpah75.0-45.0 [facility] CampusComment on above:Performed By: #### [id number] ####[facility] ([facility])[address] [place] [address]FQEVFXPBL (10*3/UL) IN BLOOD BY CALCUATION1.00 10*3/uLNormal0.10-1.00UnFostoria City HospitalComment on above:Performed By: #### [id number] ####[facility] ([facility])[address] [place] [address]PTTFWRBLZ/100 LEUKOCYTES IN BLOOD BY AUTOMATED COUNT7.2 %Normal5.0-12.0UnFostoria City HospitalComment on above:Performed By: #### [id number] ####[facility] ([facility])[address], [place] [address]CKMCPYGVCHT (10*3/UL) IN BLOOD BY CALCULATION7.4 10*3/uL Normal1.6-7.6UnFostoria City HospitalComment on above:Performed By: #### [id number] ####[facility] ([facility])[address] [place] [address] NEUTROPHILS/100 LEUKOCYTES IN BLOOD BY AUTOMATED COUNT53.6 %Hcifcv57.0-72.0 [facility] CampusComment on above:Performed By: #### [id number] ####[facility] ([facility])[address], [place] [address]Svhndo Visiton 31-64-5416Ysdbvm-up [id number] Bernardo Jimenez 1965 M Date Provider Department [place] 09/07/2024 HERRERA AGUIRRE [facility] FLORI Hernandez Family History Problem Relation Age of Onset Hypertension Mother Colon cancer Mother Colon cancer Father Hypertension Father Other Father Family Status - Relation Status Age at Mother Father Level of Service:98985 [place] OFFICE/OUTPATIENT ESTABLISHED MOD MDM 30 MIN Reason for Visit and Comments: Medication Visit [612] HIV Positive/AIDS [109] Health Maintenance [619] Hip Pain [428483] - Left hip, left knee and lower back discomfort Flu Vaccine [189]NormalUnFostoria City HospitalT CELL SUBSET ANALYSIS on 74-07-3538WI151.23 %Low65.00-90.00[facility] CampusComment on above:Performed By: #### [id number] #### [facility] ([facility]) [address] [facility] [place], [place] [address]OZ5 [id number] cells/qe2Jril923-8812XrcptkdshyFostoria City HospitalComment on above:Performed By: #### [id number] #### [facility] ([facility]) [address] [place], [place] [address]TO772.06 %Low40.00-70.00[facility] Comment on above:Performed By: #### [id number] #### [facility] ([facility]) [address] [place], [place] [address]FJ7 [id number] cells/vv1Jcli836-1174GghgpqncnqFostoria City HospitalComment on above:Performed By: #### [id number] #### [facility] ([email or web address]) [address] [place], [place] [address]AU9:CD81.22Cymdin1.00-4.00[facility] Comment on above:Performed By: #### [id number] #### [facility] ([facility]) [address] [place], [place] [address]FA053.63 %Aerkwt27.00-40.00[facility] Comment on above:Performed By: #### [id number] #### [facility] ([facility]) [address] [place], [place] [address]KE2 [id number] cells/rt2Ntor187-935ZieomcwycmFostoria City HospitalComment on above:Performed By: #### [id number] #### [facility] ([facility]) [address] [place], [place] [address]Mjvmbz Onlyon 65-23-0644Kcmenr [id number] Bernardo Jimenez 1965 M Date Provider Department Center 09/01/2024 HERRERA AGUIRRE [facility] Ruben Heal Family History Problem Relation Age of Onset Hypertension Mother Colon cancer Mother Colon cancer Father Hypertension Father Other Father Family Status - Relation Status Age at Mother Father DeceasedNormalUniClermont County HospitalRefltac, [facility] 08-30-2024 [id number] Bernardo Jimenez 1965 M Date Provider Department Center 08/30/2024 HERRERA AGUIRRE [facility] Ruben Heal Family History Problem Relation Age of Onset Hypertension Mother Colon cancer Mother Colon cancer Father Hypertension Father Other Father Family Status - Relation Status Age at Mother Father Reason for Visit and Comments: Med Refill [[id number]][facility]36on 09/07/2024 01/27/2024 Income on file HIV Quantitative RNA (copies/mL) Date Value 01/27/2024 <30 09/17/2022 Not Detected CD4 Abs (cells/mm3) Date Value 01/27/2024 1,262 (H) Creatinine (mg/dL) Date Value 01/27/2024 1.15NormalUnFostoria City HospitalRefltac, [facility] 08-26-2024 [id number] Bernardo Jimenez 1965 M Date Provider Department Center 08/26/2024 281-HERRERA THOMPSON [facility] Ruben Heal Family History Problem Relation Age of Onset Hypertension Mother Colon cancer Mother Colon cancer Father Hypertension Father Other Father Family Status - Relation Status Age at Mother Father Reason for Visit and Comments: Med [facility]ill [[id number]][facility] - right 1 or 2 Viewson 47-47-0818Nmlffoo Result: Patient had bilateral PA standing x-rays along with bilateral sunrise in addition to films done through [facility] of his right knee. He does not show any significant osteoarthritis of the weight-bearing surfaces with some sclerotic change of the patellofemoral joints bilaterally with no subluxation maltracking evidence. No acute fracture seen.[facility] Study observation (narrative)[facility] W/DIFFon 19-23-1153HRS IMM GRANS0.0 10*3/uLNormal0.0-0.2The [facility] CampusComment on above:Performed By: #### [id number] #### [facility] [address] [place] [address], USAABS NEUTROPHILS4.5 10*3/uLNormal1.6-7.6The [facility] CampusComment on above:Performed By: #### [id number] #### [facility] [address] [facility] [place] [place] [address], USABasophils (Bld) [#/Vol]0.1 10*3/uLNormal0.0-0.2The [facility] CampusComment on above:Performed By: #### [id number] #### [facility] [address] [place] [address], USABasophils/100 WBC (Bld)0.7 %Normal0.0-1.0The [facility] CampusComment on above:Performed By: #### [id number] #### [facility] [address] [place] [address], USAEosinophils (Bld) [#/Vol]0.3 10*3/uLNormal0.0-0.5The [facility] CampusComment on above:Performed By: #### [id number] #### [facility] [address] [facility] [place] [address], USAEosinophils/100 WBC (Bld)2.9 %Normal0.0-6.0The [facility] CampusComment on above:Performed By: #### [id number] #### [facility] [address] [place] [address], USAErythrocyte distribution width (RBC) [Ratio]12.2 %Normal 11.5-15.0The [facility] CampusComment on above:Performed By: #### 12539 #### [facility] [address] [facility] [place] [address], USAHematocrit (Bld) [Volume fraction]42.5 %Bwzutc56.0-50.0The [facility] CampusComment on above:Performed By: #### [id number] #### [facility] [address] [facility] [place] [address], USAHemoglobin (Bld) [Mass/Vol]14.8 g/hYLmonjc60.0-17.0The [facility] CampusComment on above:Performed By: #### [id number] #### [facility] [address] [facility] [place] [address], USAIMMATURE GRANS0.2 %Normal0.0-1.0The [facility] CampusComment on above:Performed By: #### [id number] #### [facility] [address] [facility] [place] [address], USALymphocytes (Bld) [#/Vol]3.4 10*3/uLNormal1.2-4.0The [facility] CampusComment on above:Performed By: #### 11176 #### [facility] [address] [facility] [place] [address], USALymphocytes/100 WBC (Bld)38.9 %Rfnuzt62.0-45.0The [facility] CampusComment on above:Performed By: #### 54119 #### [facility] [address] [facility] [place] [address], USAMCH (RBC) [Entitic mass]31.4 qpOynykn65.0-33.0The [facility] CampusComment on above:Performed By: #### 84104 #### [facility] [address] [place] [address], PRES[facility] HOSPITALMCHC (RBC) [Mass/Vol]34.8 g/pLBulxnh27.0-35.0The [facility] CampusComment on above:Performed By: #### 79632 #### [facility] [address] [facility] [place] [address], PRES[facility] HOSPITALMCV (RBC) [Entitic vol]90.0 yNWqzcki25.0-98.0The [facility] CampusComment on above:Performed By: #### [id number] #### [facility] [address] [facility] [place] [address], PRESBYTERIAN HOSPITALMonocytes (Bld) [#/Vol]0.6 10*3/uLNormal0.1-1.0The [facility] CampusComment on above:Performed By: #### 76098 #### [facility] [address] [facility] [place] [address], PRESBYTERIAN HOSPITALMONOS6.6 %Normal5.0-12.0The [facility] CampusComment on above:Performed By: #### 42881 #### [facility] [address] [facility] [place] [address], PRESBYTERIAN HOSPITALNeutrophils/100 WBC (Bld)50.7 %Wsdvbb44.0-72.0The [facility] CampusComment on above:Performed By: #### 09001 #### [facility] [address] [facility] [place] [address], USANucleated RBC/100 WBC (Bld) [Ratio]0 %Normal0-0The [facility] CampusComment on above:Performed By: #### 25523 #### [facility] [address] [facility] [place] [address], USAPLAT URO773 10*3/zFWsakkd890-707Kjf [facility] CampusComment on above:Performed By: #### 64130 #### [facility] [address] [facility] [place] [address], USARBC (Bld) [#/Vol]4.72 10*6/uLNormal4.20-5.70The [facility] CampusComment on above:Performed By: #### 56816 #### [facility] [address] [place] [address], USAWBC (Bld) [#/Vol]8.84 10*3/uLNormal4.00-10.60The [facility] CampusComment on above:Performed By: #### [id number] #### [facility] [address] [facility] [place] [address], USACHLAMYDIA/GONORRHEA BY TMAon 30-42-4147SJTCNDUNL BY TMA NegativeNormalNEGATIVEThe [facility] CampusComment on above: Result Comment: No Chlamydia trachomatis rRNA Detected.Performed By: #### [id number] #### [facility] [address] [facility] [place] [address], USAGONORRHEA BY TMANegativeNormalNEGATIVEThe [facility] CampusComment on above:Result Comment: No Neisseria gonorrhoeae rRNA Detected. The Aptima Combo 2 Assay is a FDA approved target amplification nucleic acid probe test that utilizes target capture for the in vitro qualitative detection and differentiation of ribosomal RNA (rRNA) from Chlamydia trachomatis (CT) and/or Neisseria gonorrhoeae (GC) to aid the diagnosis of chlamydial and/or gonococcal urogenital disease using the Fairplay System. The Aptima Combo2 Assay involves: target capture; target amplification by Business Banking Sales Assistant-Mediated Amplification (TMA); and detection of the amplification products (amplicon) by the Hybridization Protection Assay (HPA). The internal process controls of the Fairplay System monitor the target capture, amplification, and detection steps of the assay, this is NOT intended to control for sampling adequacy.Performed By: #### [id number] #### [facility] [address] [place] [address], USACOMP METABOLIC PANELon 69-91-3197Lqoomcw [Mass/Vol]4.4 g/dL Normal3.5-5.7The [facility] CampusComment on above:Performed By: #### 95299, 17707 #### [facility] [address] [place] [address], USAALKALINE TRKCLI82 IU/VGttcoy54-601Vig [facility] CampusComment on above:Performed By: #### 74106, 71832 #### [facility] [address] [place] [address], USAALT [Catalytic activity/Vol]57 U/LHigh7-52The [facility] CampusComment on above:Performed By: #### 81704, 87712 #### [facility] [address] [place] [address], USAAST [Catalytic activity/Vol]41 U/XCtfh73-68Dra [facility] CampusComment on above:Performed By: #### 01011, 79317 #### [facility] [address] [place] [address], USABilirubin [Mass/Vol]1.0 mg/dLNormal0.3-1.0The [facility] CampusComment on above:Performed By: #### 72596, 03892 #### [facility] [address] [place] [address], USACalcium [Mass/Vol]8.9 mg/dLNormal8.6-10.3The [facility] CampusComment on above:Performed By: #### 51999, 30314 #### [facility] [address] [place] [address], USAChloride [Moles/Vol]103 mmol/WXkcnux84-063Uak [facility] CampusComment on above:Performed By: #### 20628, 43015 #### [facility] [address] [place] [address], USACO2 [Moles/Vol]24 mmol/ZLrlave90-28Qwu [facility] CampusComment on above:Performed By: #### 12668, 83256 #### [facility] [address] [place] [address], USACreatinine [Mass/Vol]1.07 mg/dLNormal0.70-1.30The [facility] CampusComment on above:Performed By: #### 53208, 08987 #### [facility] [address] [place] [address], USAGFR/1.73 sq M.predicted among blacks MDRD (S/P/Bld) [Vol rate/Area]mL/min/{1.73_m2}Normal>60The [facility] Comment on above:Performed By: #### 85443, 35251 #### [facility] [address] [place] [address], USAGFR/1.73 sq M.predicted among non-blacks MDRD (S/P/Bld) [Vol rate/Area]mL/min/{1.73_m2}Normal>60The [facility] Comment on above:Performed By: #### 38847, 86252 #### [facility] [address] [place] [address], USAGlucose [Mass/Vol]96 mg/yPBhreev69-441Zlx [facility] CampusComment on above:Performed By: #### 72067, 93328 #### [facility] [address] [place] [address], USAPotassium [Moles/Vol]3.5 mmol/LNormal3.5-5.1The [facility] CampusComment on above:Performed By: #### 92481, 67007 #### [facility] [address] [place] [address], USAProtein [Mass/Vol]7.4 g/dLNormal6.0-8.3The [facility] CampusComment on above:Performed By: #### 44057, 70055 #### [facility] [address] [place] [address], USASodium [Moles/Vol]136 mmol/LJbmspk310-315Wnl [facility] CampusComment on above:Performed By: #### 74876, 17674 #### [facility] [address] [place] [address], USAUrea nitrogen [Mass/Vol]13 mg/dLNormal7-25The [facility] CampusComment on above:Performed By: #### 30464, 91095 #### [facility] [address] [place] [address], USAHIV VIRAL LOADon 94-24-5060KJV QNT RNA PCR:Not detected NormalThe [facility] CampusComment on above:Result Comment: The Aptima HIV Quant assay is a real-time brand ambassador promotional model-mediated amplification (TMA) test which has a dynamic range of 30-10,000,000 copies/mL (1.47-7.0 log copies/mL). The Aptima HIV Quant assay is used for quantitation of human immunodeficiency virus type 1 (HIV-1) RNA in human plasma from HIV-infected individuals. The Aptima HIV-1 Quant assay is intended for use in conjunction with clinical presentation and other laboratory markers for disease prognosis and for use as an aid in monitoring the effects of antiretroviral treatment, as measured by changes in plasma HIV-1 RNA levels. This assay is not intended to be used as a donor screening test for HIV-1 or as a diagnostic test to confirm the presence of HIV-1 infection.Performed By: #### 86195 #### [facility] [address] [place] [address], USALOG 10 COPIESNot detectedNormalThe [facility] CampusComment on above:Performed By: #### 30955 #### [facility] [address] [place] [address], USALIPID PROFILEon 19-53-1388Wfmlmjfponc [Mass/Vol]171 mg/dL Eddral161-409Edb [facility] CampusComment on above:Result Comment: CHOLESTEROL REFERENCE RANGE: 20 YEARS AND OLDER CARDIOVASCULAR RISK Less than 200 mg/dl Low Risk 200 to 239 mg/dl Borderline Risk 240 mg/dl and greater High RiskPerformed By: #### 04314, 94699 #### [facility] [address] [place] [address], USACholesterol in HDL [Mass/Vol]42 mg/iAKgktrp14-90Dfy [facility] CampusComment on above:Result Comment: Slight variation in normal range could be due to gender and/or age. HDL CHOLESTEROL REFERENCE RANGE: 20 years and older Cardiovascular Risk > or =60 mg/dL Desirable 40 TO 59 mg/dL Low Risk <40 mg/dL High RiskPerformed By: #### 52648, 60479 #### [facility] [address] [facility] [place] [address], USACholesterol in LDL [Mass/Vol]18 mg/dLNormal0-130The [facility] CampusComment on above:Result Comment: LDL IS A CALCULATION LDL IS ONLY VALID IF THE TRIG IS LESS THAN 400.Performed By: #### 25131, 92876 #### [facility] [address] [facility] [place] [address], USACholesterol.total/Cholesterol in HDL [Mass ratio]4.1 {ratio}Normal.0-4.5The [facility] CampusComment on above: Performed By: #### 43187, 30488 #### [facility] [address] [facility] [place] [address], USANON-HDL ZFPVWKDYXGV553 mg/dLNormalThe [facility] CampusComment on above:Performed By: #### 79825, 90855 #### [facility] [address] [facility] [place] [address], USATriglyceride [Mass/Vol]556 mg/wJXtwo49-074Rvv [facility] CampusComment on above:Result Comment: TRIGLYCERIDE REFERENCE RANGE: 20 YEARS AND OLDER CARDIOVASCULAR RISK LESS THAN 150 mg/dl LOW RISK 150 TO 199 mg/dl BORDERLINE RISK 200 mg/dl AND GREATER HIGH RISKPerformed By: #### 17893, 56508 #### [facility] [address] [facility]. [place] [id number], USAVLDL VQNZ710 mg/dLHigh0-40The [facility] CampusComment on above:Performed By: #### 96624, 59624 #### [facility] [address] [facility] [place] [place] [address], USARPR (RAPID PLASMA REAGIN)on 12-34-2310Gdjdcl Ab RPR Ql (S) Tgl-YtqwsparSkexhsZJY-EZVTLWCOWoe [facility] CampusComment on above:Performed By: #### 21812 #### [facility] [address] [facility] [place] [address], USAt cell subset analysison 75-70-2700NV7 %62.99 %Low 65.00-90.00The [facility] CampusComment on above:Order Comment: This test was developed and its performance characteristics determinedby the [facility] Flow Cytometry Laboratory.It has not been cleared or approved by the .S. Food and DrugAdministration.Performed By: #### 46729 #### [facility] [address] [facility] [place] [address], USACD3 [id number] cells/mz3Uiro337-8691Gjh [facility] CampusComment on above:Order Comment: This test was developed and its performance characteristics determinedby the [facility] Flow Cytometry Laboratory.It has not been cleared or approved by the U.S. Food and DrugAdministration.Performed By: #### 28508 #### [facility] [address] [facility] [place] [address], USACD4 %32.77 %Low40.00-70.00The [facility] CampusComment on above:Order Comment: This test was developed and its performance characteristics determinedby the [facility] Flow Cytometry Laboratory.It has not been cleared or approved by the U.S. Food and DrugAdministration. Performed By: #### 28309 #### [facility] [address] [facility] [place] [address], USACD4 [id number] cells/qf2Ewzmlg333-9587Qsz [facility] CampusComment on above:Order Comment: This test was developed and its performance characteristics determinedby the [facility] Flow Cytometry Laboratory.It has not been cleared or approved by the .S. Food and DrugAdministration.Performed By: #### 31982 #### [facility] [address] [place] [address], USACD4:CD8 RATIO1.51Lcfryc3.00-4.00The [facility] CampusComment on above:Order Comment: This test was developed and its performance characteristics determinedby the [facility] Flow Cytometry Laboratory.It has not been cleared or approved by the U.S. Food and DrugAdministration. Performed By: #### 55948 #### [facility] [address] [place] [address], USACD8 %29.84 %Yqrexd50.00-40.00The [facility] CampusComment on above:Order Comment: This test was developed and its performance characteristics determinedby the [facility] Flow Cytometry Laboratory.It has not been cleared or approved by the U.S. Food and DrugAdministration. Performed By: #### 27909 #### [facility] [address] [place] [address], USACD8 [id number] cells/le0Seit883-034Rvq [facility] CampusComselect specialty hospital on above:Order Comment: This test was developed and its performance characteristics determinedby the [facility] Flow Cytometry Laboratory.It has not been cleared or approved by the U.S. Food and DrugAdministration.Performed By: #### [address]70 #### [place] [address], USACBC AUTO DIFFon 38-03-4592KVGE #0.1 103/ulNormal0.0-0.1The [facility] HospitalCom[facility] on above:Performed By: #### CBC #### [facility] [address] [place] [id number] Joanne KarenBasophils/100 WBC (Bld)0.9 %Normal0.2-2.0The [facility] Comment on above:Performed By: #### CBC #### [facility] [address] [place] [address] Joanne KarenEO #0.2 103/ulNormal0.0-0.7The [facility] HospitalComment on above: Performed By: #### CBC #### [facility] [address] [place] [address] Joanne KarenEosinophils/100 WBC (Bld)1.5 %Normal0.9-7.0The [facility] Comment on above:Performed By: #### CBC #### [facility] [address] [place] [address] Joanne KarenErythrocyte distribution width (RBC) [Ratio]12.3 %Kdhcla90.0-15.0The [facility] HospitalComment on above:Performed By: #### CBC #### [facility] [address] [place] [address] Joanne KarenHematocrit (Bld) [Volume fraction]43.4 %Rswcvb80.0-54.0The [facility] HospitalComment on above:Performed By: #### CBC #### [facility] [address] [place], [place] [address] Joanne KarenHemoglobin (Bld) [Mass/Vol]15.1 g/nFCdhacx88.0-18.0The [facility] HospitalComment on above:Performed By: #### CBC #### [facility] [address] [place] [address] Joanne KarenIG #0.06 10e3/ulCritically high0.00-0.03The [facility] HospitalComment on above:Performed By: #### CBC #### [facility] [address] [place] [address] Joanne KarenIG %0.5 %Normal0.0-0.5The [facility] HospitalComment on above: Performed By: #### CBC #### [facility] [address] [place] [address] Joanne MontanaLYMPH #4.7 103/ulCritically high1.2-3.8The [facility] HospitalComment on above:Performed By: #### CBC #### [facility] [address] [place] [address] Joanne KendallenLymphocytes/100 WBC (Bld)40.1 %Jknhqk12.5-60.0[facility] Comment on above:Performed By: #### CBC #### [facility] [address] [place] [address] Joanne KarenMANUAL DIFF REQNONormalThe [facility] HospitalComment on above: Performed By: #### CBC #### [facility] [address] [place] [address] Joanne KarenMCH (RBC) [Entitic mass]31.[address] Comment on above:Performed By: #### CBC #### [facility] [address] [place] [address] Joanne KarenMCHC (RBC) [Mass/Vol]34.8 g/jAZvkyke98.9-35.2[facility] Comment on above:Performed By: #### CBC #### [facility] [address] [place] [address] Joanne KarenMCV (RBC) [Entitic vol]90.[address]w26[address]0[facility] Comment on above:Performed By: #### CBC #### [facility] [address] [place] [address] Joanne KendallenMONO #1.0 103/ulCritically high0.3-0.8The [facility]ittman HospitalComment on above:Performed By: #### CBC #### [facility] [address] [place] [address] Joanne KarenMonocytes/100 WBC (Bld)8.7 %Normal1.7-12.0[facility] Comment on above:Performed By: #### CBC #### [facility] [address] [address] Joanne SubramanianUT #5.7 103/ulNormal1.4-6.5The [facility]ittman HospitalComment on above: Performed By: #### CBC #### [facility] [address] [place] [address] oJanne KendallenNeutrophils/100 WBC (Bld)48.3 %Jgzkub17.0-75.0The [facility] Comment on above:Performed By: #### CBC #### [facility] [address] [place] [address] Joanne KendallenPlatelet mean volume (Bld) [Entitic vol]10.3 fLNormal9.5-13.5The [facility]ittman HospitalComment on above:Performed By: #### CBC #### [facility] [address] [place] [address] Joanne KendallFydcqOSX518 103/hrTqxnmj874-261Hhf [facility] HospitalComment on above: Performed By: #### CBC #### [facility] [address] [place] [address] Joanne KarenRBC4.79 106/ulNormal4.70-6.10The [facility]man HospitalComment on above: Performed By: #### CBC #### [facility] [address] [place] [address] Joanne KendallenWBC11.8 103/ulCritically high4.0-11.0The [facility]ittman HospitalComment on above:Performed By: #### CBC #### [facility] [address] [place] [address] Joanne KarenCULTURE THROATon [id number] THROATCulture Observations: NORMAL RESPIRATORY DWAYNE.NormalThe [facility]ittman HospitalComment on above:Performed By: #### SSCRN, THRTCX #### [facility] [address] [place] [address] Joanne KarenFREE T4on 59-20-9524Exgv T4 [Mass/Vol]0.93 ng/dLNormal0.78-2.19The [facility]ittman HospitalComment on above:Performed By: #### FT4 #### [facility] [address] [place], [place] [id number] Joanne KarenMONOon 98-62-9559Jeshhfsyl (Bld) [#/Vol]NegativeNormalNEGATIVEThe [facility]ittman HospitalComment on above:Performed By: #### MONO #### [facility] [address] [place] [address] Joanne KarenPROF 14(COMP METB)on 61-71-4194Hytgjgo [Mass/Vol]3.8 g/dLNormal 3.5-5.0The [facility]ittman HospitalComment on above:Performed By: #### CMP #### [facility] [address] [place] [address] Joanne KarenAlbumin/Globulin [Mass ratio]0.8 {ratio}Normal[address] [facility] Comment on above:Performed By: #### CMP #### [facility] [address] [place] [address] Joanne KarenALP [Catalytic activity/Vol]61 U/IIqixef36-407Czf [facility] Comment on above:Performed By: #### CMP #### [facility] [address] [place] [address] Joanne KarenALT [Catalytic activity/Vol]74 U/LCritically ujtn83-94Den [facility] HospitalComment on above:Performed By: #### CMP #### [facility] [address] [place] [address] Joanne KarenAnion gap [Moles/Vol]13.6 mmol/LNormalThe [facility]ittman HospitalComment on above:Performed By: #### CMP #### [facility] [address] [place] [address] Joanne KarenAST [Catalytic activity/Vol]59 U/BGgunsl82-95Hyc [facility] Comment on above:Performed By: #### CMP #### [facility] [address] [place] [address] Joanne KarenBilirubin [Mass/Vol]0.6 mg/dLNormal0.2-1.3TWilson [facility] Comment on above:Performed By: #### CMP #### [facility] [address] [address] Joanne KarenCalcium [Mass/Vol]9.0 mg/dLNormal8.4-10.2The [facility] Comment on above:Performed By: #### CMP #### [facility] [address] [address] Joanne KarenChloride [Moles/Vol]103 mmol/XNsklin36-878Pcv [facility] Comment on above:Performed By: #### CMP #### [facility] [address] [place] [address] Joanne KarenCO2 [Moles/Vol]25.1 mmol/CQrwpxb56.0-30.0The [facility] Comment on above:Performed By: #### CMP #### [facility] [address] [place] [address] Joanne KarenCreatinine [Mass/Vol]1.30 mg/dLCritically high0.66-1.25The [facility] HospitalComment on above:Performed By: #### CMP #### [facility] [address] [place] [address] Joanne KarenEGFR-AF SOUTH [place]OREAN>60Normal>=60The [facility]ittman HospitalComment on above: Performed By: #### CMP #### [facility] [address] [place] [address] Joanne KarenEGFR-NON AF DDENJWLV41 mL/min/1.74d1Znldwvtyyd low>=60The [facility] HospitalComment on above:Performed By: #### CMP #### [facility] [address] [place] [address] Joanne KarenGlobulin (S) [Mass/Vol]4.5 g/dLNormalThe [facility] HospitalComment on above:Performed By: #### CMP #### [facility] [address] [place] [address] Joanne KarenGlucose [Mass/Vol]99 mg/rIPozbqb53-377Ewh [facility] HospitalComment on above:Performed By: #### CMP #### [facility] [address] [place], [place] [address] Joanne KarenPotassium [Moles/Vol]3.7 mmol/LNormal3.4-5.0The [facility] Comment on above:Performed By: #### CMP #### [facility] [address] [place] [address] Joanne KarenProtein [Mass/Vol]8.3 g/dLCritically high6.1-8.2The [facility] HospitalComment on above:Performed By: #### CMP #### [facility] [address] [place] [address] Joanne KarenSodium [Moles/Vol]138 mmol/RSkwuoi976-486Bkr [facility] Comment on above:Performed By: #### CMP #### [facility] [address] [place] [address] Joanne KarenUrea nitrogen [Mass/Vol]11.0 mg/dLNormal9.0-20.0The [facility]itt[facility] HospitalComment on above:Performed By: #### CMP #### [facility] [address] [place] [address] Joanne KarenUrea nitrogen/Creatinine [Mass ratio]8.5 mg/mgNoSumma Health W[facility] - [facility]ittman Medical CenterComment on above:Performed By: #### CMP #### [facility] [address] [place] [address] Joanne KarenSTREPT SCREENon 25-09-8196XTIKB SCREEN ANegativeNormalNEGATIVEThe [facility] HospitalComment on above:Performed By: #### SSCRN, THRTCX #### [facility] [address] [place] [address] Joanne KarenTSHon 00-78-9179JDK4.643 uIU/mLNormal0.470-4.680The [facility] HospitalComment on above:Performed By: #### TSH #### [facility] [address] [place] [address] Joanne KarenTSH RANGESEE BELOWProMedica Memorial HospitalComment on above:Result Comment: <0.34 UIU/ml HYPERTHYROID 0.34-5.60 UIU/ml EUTHYROID >5.60 UIU/ml HYPOTHYROIDPerformed By: #### TSH #### [facility] [address] [address] Joanne KendallenXR NECK SOFT TISSUEon [id number] NECK SOFT TISSUEEXAM: XR NECK SOFT TISSUE HISTORY: Dyspnea. COMPARISON: None. TECHNIQUE: 2 views of the soft tissues of the neck were obtained. FINDINGS: The epiglottis is within normal limits. The prevertebral soft tissues are unremarkable. The airway is patent. The imaged lung apices are clear. No acute osseous abnormality is seen. Dental amalgam is noted. IMPRESSION: 1. Unremarkable examination of the soft tissues of the neck. Electronically authenticated by: Khloe KENNY Date: 2021-03-24 00:27[facility] W/DIFFon [id number] IMM GRANS0.1 10*3/uLNormal0.0-0.2The [facility] CampusComment on above:Performed By: #### [id number] #### [facility] [address] [facility] [place] [address], USAABS NEUTROPHILS4.7 10*3/uLNormal1.6-7.6The [facility] CampusComment on above:Performed By: #### 99477 #### [facility] [address] [facility] [place] [address], USABasophils (Bld) [#/Vol]0.1 10*3/uLNormal0.0-0.2The [facility] CampusComment on above:Performed By: #### 49732 #### [facility] [address] [facility] [place] [address], USABasophils/100 WBC (Bld)0.8 %Normal0.0-1.0The [facility] CampusComment on above:Performed By: #### 14178 #### [facility] [address] [facility] [place] [address], USAEosinophils (Bld) [#/Vol]0.2 10*3/uLNormal0.0-0.5The [facility] CampusComment on above:Performed By: #### 91631 #### [facility] [address] [place] [address], USAEosinophils/100 WBC (Bld)2.1 %Normal0.0-6.0The [facility] CampusComment on above:Performed By: #### 17798 #### [facility] [address] [place] [address], USAErythrocyte distribution width (RBC) [Ratio]12.2 %Normal 11.5-15.0The [facility] CampusComment on above:Performed By: #### 41390 #### [facility] [address] [facility] [place] [address], USAHematocrit (Bld) [Volume fraction]42.9 %Qjnlhs59.0-50.0The [facility] CampusComment on above:Performed By: #### 80621 #### [facility] [address] [facility] [place] [address], USAHemoglobin (Bld) [Mass/Vol]14.7 g/iVSxxblc01.0-17.0The [facility] CampusComment on above:Performed By: #### 73054 #### [facility] [address] [facility] [place] [address], USAIMMATURE GRANS0.6 %Normal0.0-1.0The [facility] CampusComment on above:Performed By: #### 88077 #### [facility] [address] [facility] [place] [address], USALymphocytes (Bld) [#/Vol]4.0 10*3/uLNormal1.2-4.0The [facility] CampusComment on above:Performed By: #### 23403 #### [facility] [address] [place] [address], USALymphocytes/100 WBC (Bld)41.1 %Dyntgm86.0-45.0The [facility] CampusComment on above:Performed By: #### 89119 #### [facility] [address] [place] [id number], [facility] [place] ([place]BC) [Entitic mass]31.5 elUkehdt14.0-33.0The [facility] CampusComment on above:Performed By: #### 76815 #### [facility] [address] [place] [id number], [facility] [place] [place] ([place]BC) [Mass/Vol]34.3 g/jUMykgiq06.0-35.0The [facility] CampusComment on above:Performed By: #### 11216 #### [facility] [address] [place] [id number], [facility]ITALMCV (RBC) [Entitic vol]91.9 fPFyyevv33.0-98.0The [facility] CampusComment on above:Performed By: #### 28193 #### [facility] [address] [place] [address], USAMonocytes (Bld) [#/Vol]0.7 10*3/uLNormal0.1-1.0The [facility] CampusComment on above:Performed By: #### 04133 #### [facility] [address] [place] [address], USAMONOS7.3 %Normal5.0-12.0The [facility] CampusComment on above:Performed By: #### 36135 #### [facility] [address] [place] [address], USANeutrophils/100 WBC (Bld)48.1 %Nclppg74.0-72.0The [facility] CampusComment on above:Performed By: #### 56257 #### [facility] [address] [place] [id number], USANucleated RBC/100 WBC (Bld) [Ratio]0 %Normal0-0The [facility] CampusComment on above:Performed By: #### 22197 #### [facility] [address] [place] [address], USAPLAT GTE785 10*3/wUHfnrut108-788Zcw [facility] CampusComment on above:Performed By: #### 70857 #### [facility] [address] [place] [address], PRESBYTERIAN HOSPITALRBC (Bld) [#/Vol]4.67 10*6/uLNormal4.20-5.70The [facility] CampusComment on above:Performed By: #### 13751 #### [facility] [address] [facility] [place] [address], PRESBYTERIAN HOSPITALWBC (Bld) [#/Vol]9.81 10*3/uLNormal4.00-10.60The [facility] CampusComment on above:Performed By: #### 01300 #### [facility] [address] [facility] [place] [place] [address], PRESBYTERIAN HOSPITALCHLAMYDIA BY TMAon 56-44-0301PLOWKIPBH BY TMANegativeNormal NEGATIVEThe [facility] CampusComment on above:Result Comment: No Chlamydia trachomatis rRNA Detected.Performed By: #### 68674 #### [facility] [address] [facility] [place] [place] [address], PRES[facility] HOSPITALCOMP METABOLIC PANELon 83-01-2692Xtgqmel [Mass/Vol]4.4 g/dL Normal3.5-5.7The [facility] CampusComment on above:Performed By: #### 56222, 87563 #### [facility] [address] [facility] [place] [place] [address], PRESBYTERIAN HOSPITALALKALINE TXXKWY61 IU/MOltcvs36-731Ejc [facility] CampusComment on above:Performed By: #### 82229, 04761 #### [facility] [address] [facility] [place] [address], USAALT [Catalytic activity/Vol]67 U/LHigh7-52The [facility] CampusComment on above:Performed By: #### 26239, 44303 #### [facility] [address] [place] [address], USAAST [Catalytic activity/Vol]43 U/NEnzf08-20Htz [facility] CampusComment on above:Performed By: #### 20129, 84324 #### [facility] [address] [place] [address], USABilirubin [Mass/Vol]0.8 mg/dLNormal0.3-1.0The [facility] CampusComment on above:Performed By: #### 51580, 71299 #### [facility] [address] [place] [address], USACalcium [Mass/Vol]9.1 mg/dLNormal8.6-10.3The [facility] CampusComment on above:Performed By: #### 73118, 46246 #### [facility] [address] [place] [address], USAChloride [Moles/Vol]102 mmol/GAzcsvz83-672Qkp [facility] CampusComment on above:Performed By: #### 39862, 77690 #### [facility] [address] [place] [address], USACO2 [Moles/Vol]21 mmol/JWoeuec50-22Pev [facility] CampusComment on above:Performed By: #### 48022, 74355 #### [facility] [address] [place] [address], USACreatinine [Mass/Vol]1.26 mg/dLNormal0.70-1.30The [facility] CampusComment on above:Performed By: #### 69264, 55940 #### [facility] [address] [place] [address], USAeGFR- non- Clwtrqum42 ml/min/1.73sq mAbnormal>60The [facility] CampusComment on above:Performed By: #### 21627, 01724 #### [facility] [address] [place] [address], USAGFR/1.73 sq M.predicted among blacks MDRD (S/P/Bld) [Vol rate/Area]mL/min/{1.73_m2}Normal>60The [facility] Comment on above:Performed By: #### 09925, 51164 #### [facility] [address] [place] [address], USAGlucose [Mass/Vol]95 mg/mVZmwisq45-809Ffs [facility] CampusComment on above:Performed By: #### 57784, 87941 #### [facility] [address] [place] [address], USAPotassium [Moles/Vol]4.0 mmol/LNormal3.5-5.1The [facility] CampusComment on above:Performed By: #### 01428, 32577 #### [facility] [address] [place] [address], USAProtein [Mass/Vol]7.7 g/dLNormal6.0-8.3The [facility] CampusComment on above:Performed By: #### 82736, 43145 #### [facility] [address] [place] [address], USASodium [Moles/Vol]136 mmol/FGwlwkm988-897Hoz [facility] CampusComment on above:Performed By: #### 58571, 88024 #### [facility] [address] [place] [address], USAUrea nitrogen [Mass/Vol]17 mg/dLNormal7-25The [facility] CampusComment on above:Performed By: #### 91526, 42807 #### [facility] [address] [place] [address], USAHIV VIRAL LOADon 13-66-2763NSW QNT RNA PCR:Not detected NormalThe [facility] CampusComment on above:Result Comment: The Aptima HIV Quant assay is a real-time brand ambassador promotional model-mediated amplification (TMA) test which has a dynamic range of 30-10,000,000 copies/mL (1.47-7.0 log copies/mL). The Aptima HIV Quant assay is used for quantitation of human immunodeficiency virus type 1 (HIV-1) RNA in human plasma from HIV-infected individuals. The Aptima HIV-1 Quant assay is intended for use in conjunction with clinical presentation and other laboratory markers for disease prognosis and for use as an aid in monitoring the effects of antiretroviral treatment, as measured by changes in plasma HIV-1 RNA levels. This assay is not intended to be used as a donor screening test for HIV-1 or as a diagnostic test to confirm the presence of HIV-1 infection.Performed By: #### 53548 #### [facility] [address] [place] [address], USALOG 10 COPIESNot detectedNormalThe [facility] CampusComment on above:Performed By: #### 23933 #### [facility] [address] [place] [address], USALIPID PROFILEon 67-38-1635Aeqkocbesey [Mass/Vol]177 mg/dL Acaxzj431-331Zvk [facility] CampusComment on above:Result Comment: CHOLESTEROL REFERENCE RANGE: 20 YEARS AND OLDER CARDIOVASCULAR RISK Less than 200 mg/dl Low Risk 200 to 239 mg/dl Borderline Risk 240 mg/dl and greater High RiskPerformed By: #### 57671, 18674 #### [facility] [address] [place] [address], USACholesterol in HDL [Mass/Vol]37 mg/oBRsahdb36-17Elu [facility] CampusComment on above:Result Comment: Slight variation in normal range could be due to gender and/or age. HDL CHOLESTEROL REFERENCE RANGE: 20 years and older Cardiovascular Risk > or =60 mg/dL Desirable 40 TO 59 mg/dL Low Risk <40 mg/dL High RiskPerformed By: #### 95430, 51207 #### [facility] [address] [place] [address], USACholesterol in LDL [Mass/Vol]52 mg/dLNormal0-130The [facility] CampusComment on above:Result Comment: LDL IS A CALCULATION LDL IS ONLY VALID IF THE TRIG IS LESS THAN 400.Performed By: #### 04921, 67823 #### [facility] [address] [place] [address], USACholesterol.total/Cholesterol in HDL [Mass ratio]4.8 {ratio}High0.0-4.5The [facility] CampusComment on above: Performed By: #### 00849, 06402 #### [facility] [address] [place] [address], USANON-HDL DHRINJQJSPF355 mg/dLNormalThe [facility] CampusComment on above:Performed By: #### 89994, 88188 #### [facility] [address] [facility] [place] [address], USATriglyceride [Mass/Vol]439 mg/qCJhdq22-882Nxm [facility] CampusComment on above:Result Comment: TRIGLYCERIDE REFERENCE RANGE: 20 YEARS AND OLDER CARDIOVASCULAR RISK LESS THAN 150 mg/dl LOW RISK 150 TO 199 mg/dl BORDERLINE RISK 200 mg/dl AND GREATER HIGH RISKPerformed By: #### 03395, 63487 #### [facility] [address] [place] [address], USAVLDL CHOL88 mg/dLHigh0-40The [facility] CampusComment on above:Performed By: #### 89611, 16753 #### [facility] [address] [place] [address], USARPR (RAPID PLASMA REAGIN)on 63-09-1589Mohfay Ab RPR Ql (S) Eee-ZhticpcuHweofqVFR-NFCQCNXWPbd [facility] CampusComment on above:Performed By: #### [address]4419 #### [place] [address], USAt cell subset analysison 06-87-8219VP8 %62.52 %Low 65.00-90.00The [facility] CampusComment on above:Order Comment: This test was developed and its performance characteristics determinedby the [facility] Flow Cytometry Laboratory.It has not been cleared or approved by the .S. Food and DrugAdministration.Performed By: #### 16691 #### [facility] [address] [place] [address], USACD3 [id number] cells/ab4Jzlg591-1727Swv [facility] CampusComselect specialty hospital on above:Order Comment: This test was developed and its performance characteristics determinedby the [facility] Flow Cytometry Laboratory.It has not been cleared or approved by the U.S. Food and DrugAdministration.Performed By: #### 30469 #### [address] [address], USACD4 %31.69 %Low40.00-70.00The [facility] CampusComselect specialty hospital on above:Order Comment: This test was developed and its performance characteristics determinedby the [facility] Flow Cytometry Laboratory.It has not been cleared or approved by the U.S. Food and DrugAdministration. Performed By: #### 25144 #### [facility] [address] [place] [address], USACD4 [id number] cells/sk0Qrbw807-3515Iuy [facility] CampusComselect specialty hospital on above:Order Comment: This test was developed and its performance characteristics determinedby the [facility] Flow Cytometry Laboratory.It has not been cleared or approved by the U.S. Food and DrugAdministration.Performed By: #### 82714 #### [facility] [address] [place] [id number], USACD4:CD8 RATIO1.23Ihmgdl5.00-4.00The [facility] CampusComment on above:Order Comment: This test was developed and its performance characteristics determinedby the [facility] Flow Cytometry Laboratory.It has not been cleared or approved by the .S. Food and DrugAdministration. Performed By: #### 28938 #### [facility] [address] [facility] [place] [address], USACD8 %30.57 %Squbal28.00-40.00The [facility] CampusComment on above:Order Comment: This test was developed and its performance characteristics determinedby the [facility] Flow Cytometry Laboratory.It has not been cleared or approved by the U.S. Food and DrugAdministration. Performed By: #### 20100 #### [facility] [address] [facility] [place] [address], USACD8 [id number] cells/gg2Mohh947-563Lvj [facility] CampusComment on above:Order Comment: This test was developed and its performance characteristics determinedby the [facility] Flow Cytometry Laboratory.It has not been cleared or approved by the .S. Food and DrugAdministration.Performed By: #### 37000 #### [facility] [address] [place], [place] [id number] [place] [address] Vital Signs Date TimeVital SignValuePerforming PsvnwkviuYgbmliae11-30-0848 13:21-0400 Diastolic blood xtgdevuk37 mm[Hg]Nahomy Gardiner [facility]05-16-2025 13:21-0400Heart empl973 /minAmanda Mplife.com [facility]05-16-2025 13:21-0400Mean blood htxjfgpy160 mm[Hg]Nahomy Gardiner [facility]05-16-2025 13:21-0400 Respiratory rate14 /minAmanda Mplife.com [facility]05-16-2025 13:21-0400 Systolic blood yjtzdzqc986 mm[Hg]Nahomy Gardiner [facility]04-22-2025 15:04-0400Heart rate93 /minBradfaftab Marci [facility]04-22-2025 15:04-4532DzE5% (BldA) [Mass fraction]96 %Alfaro Guzman [facility]04-22-2025 15:04-0400 Diastolic blood rxxrxonr53 mm[Hg]Dominic Marci [facility]04-22-2025 15:04-0400Mean blood ycbmhhlu62 mm[Hg]Dominic Guzman [facility] [facility]2025 15:04-0400 Systolic blood itetgcnk041 mm[Hg]Dominic Guzman [facility]04-22-2025 14:52-0400 Diastolic blood yxtoozce61 mm[Hg]Dominic Guzman [facility]04-22-2025 14:52-0400Heart rate94 /minBradfaftab Guzman [facility]04-22-2025 14:52-0400 Respiratory rate14 /minBradford Guzman [facility]04-22-2025 14:52-0470UdD7% (BldA) [Mass fraction]97 %Dominic Guzman [facility]04-22-2025 14:52-0400 Systolic blood gepianoo287 mm[Hg]Dominic Guzman [facility]04-22-2025 13:44-0400Heart rate96 /minBradfaftab Guzman [facility]04-22-2025 13:44-0443SrK2% (BldA) [Mass fraction]95 %Dominic Guzman [facility]04-22-2025 13:44-0400 Diastolic blood pdwylzio32 mm[Hg]Dominic Guzman [facility]04-22-2025 13:44-0400Mean blood obqlmxib00 mm[Hg]Dominic Guzman [facility]04-22-2025 13:44-0400 Systolic blood vuxebxtm876 mm[Hg]Dominic Guzman [facility]04-22-2025 13:44-0400Body ilwivpjnakw25.88 [degF]Dominic Guzman [facility]04-22-2025 13:43-0400 Respiratory rate16 /minBradfaftab Guzman [facility]04-08-2025 12:51-0400 Diastolic blood mm[Hg]Nahomy Gardiner [facility]04-08-2025 12:51-0400Heart rate97 /minAmanda Gardiner [facility]04-08-2025 12:51-0400Mean blood owvblrce607 mm[Hg]Nahomy Gardiner [facility]04-08-2025 12:51-0400 Respiratory rate14 /minAmanda Gardiner [facility]04-08-2025 12:51-0400 Systolic blood rrawjtec476 mm[Hg]Nahomy Gardiner [facility]04-01-2025 08:51-0400Heart rate87 /minBradfaftab Guzman [facility]04-01-2025 08:51-9196WyV3% (BldA) [Mass fraction]97 %Dominic Guzman [facility]04-01-2025 08:51-0400 Diastolic blood mohsikkt69 mm[Hg]Dominic Guzman [facility]04-01-2025 08:51-0400Mean blood vlubbqvs18 mm[Hg]Dominic Guzman [facility]04-01-2025 08:51-0400 Systolic blood opzhrsyx087 mm[Hg]Dominic Guzman [facility]04-01-2025 08:51-0400 Respiratory rate16 /minBradford Marci [facility]04-01-2025 08:45-0400 Diastolic blood uacacbds06 mm[Hg]Dominic Guzman [facility]04-01-2025 08:45-0400Heart rate95 /minBradford Marci [facility]04-01-2025 08:45-0400 Respiratory rate16 /minBradfaftab Marci [facility]04-01-2025 08:45-2990HgU4% (BldA) [Mass fraction]96 %Dominic Guzman [facility]04-01-2025 08:45-0400 Systolic blood rgqakljd954 mm[Hg]Dominic Marci [facility]04-01-2025 07:59-0400Heart rate93 /minBradford Marci [facility]04-01-2025 07:59-0094LtC6% (BldA) [Mass fraction]97 %Dominic Guzman [facility]04-01-2025 07:59-0400 Diastolic blood fazunisl20 mm[Hg]Dominic Guzman [facility]04-01-2025 07:59-0400Mean blood rytdusdt12 mm[Hg]Dominic Guzman [facility]04-01-2025 07:59-0400 Systolic blood ztgxsark359 mm[Hg]Dominic Guzman [facility]04-01-2025 07:59-0400Body vwhucatxyrz40.06 [degF]Dominic Guzman [facility]04-01-2025 07:58-0400 Respiratory rate14 /minBradford Marci [facility]03-14-2025 13:46-0400 Diastolic blood dpgwgjwo69 mm[Hg]Nahomy Gardiner [facility]03-14-2025 13:46-0400Heart rate93 /minAmanda Gardiner [facility]03-14-2025 13:46-0400Mean blood eujthwuw242 mm[Hg]Nahomy Gardiner [address] [place], [place] 1475603-14-2025 13:46-0400 Respiratory rate16 /minAmanda Gardiner [facility]03-14-2025 13:46-0400 Systolic blood gwarkuzi720 mm[Hg]Nahomy Gardiner [facility]03-10-2025 12:21-0400Heart rate88 /minBradfaftab Marci [facility]03-10-2025 12:21-6434HdP7% (BldA) [Mass fraction]97 %Dominic Guzman [facility]03-10-2025 12:21-0400 Diastolic blood avjphgzi51 mm[Hg]Dominic Guzman [facility]03-10-2025 12:21-0400Mean blood bicgmage96 mm[Hg]Dominic Guzman [facility]03-10-2025 12:21-0400 Systolic blood pgbsimdt691 mm[Hg]Dominic Guzman [address] [place], [place] 1475603-10-2025 12:21-0400 Respiratory rate16 /minBrayasir Marci [facility]03-10-2025 12:15-0400 Diastolic blood fkywuagc99 mm[Hg]Dominic Guzman [address] [place], [place] 1475603-10-2025 12:15-0400Heart rate89 /minBrayasir Marci [address] [place], [place] 1475603-10-2025 12:15-0400 Respiratory rate14 /minBradfaftab Marci [address] [place], [place] 1475603-10-2025 12:15-6835AjS2% (BldA) [Mass fraction]96 %Dominic Guzman [address] [place], [place] 1475603-10-2025 12:15-0400 Systolic blood jfzuotsd789 mm[Hg]Dominic Guzman [address] [place], [place] 1475603-10-2025 11:27-0400Heart rate93 /minBrayasir Marci [address] [place], [place] 1475603-10-2025 11:27-3172VlP9% (BldA) [Mass fraction]97 %Dominic Guzman [facility]03-10-2025 11:26-0400 Diastolic blood xyqlwyed94 mm[Hg]Dominic Guzman [address] [place], [place] 1475603-10-2025 11:26-0400Mean blood rdsxpgyc985 mm[Hg]Dominic Guzman [facility]03-10-2025 11:26-0400 Systolic blood zryqdpgs486 mm[Hg]Dominic Guzman [address] [place], [place] 1475603-10-2025 11:26-0400Body jiyoowafbgl73.06 [degF]Dominic Guzman [facility]03-10-2025 11:26-0400 Respiratory rate14 /minBrayasir Guzman [facility]02-26-2025 08:37-0500 Diastolic blood amptnnme78 mm[Hg]Nahomy Gardiner [facility]02-26-2025 08:37-0500Heart rate82 /minAmanda Zuleyka [facility]02-26-2025 08:37-0500Mean blood iyvwgapd127 mm[Hg]Nahomy Gardiner [facility]02-26-2025 08:37-0500 Respiratory rate18 /minAmanda Gardiner [facility]02-26-2025 08:37-0500 Systolic blood vagvqowl005 mm[Hg]Nahomy Gardiner [address] [place], [place] 1475602-11-2025 11:22-0500Heart rate64 /minBrayasir Marci [address] [place], [place] 1475602-11-2025 11:22-1627UlS7% (BldA) [Mass fraction]99 %Dominic Guzman [facility]02-11-2025 11:22-0500 Diastolic blood yntlcdqs95 mm[Hg]Dominic Guzman [facility]02-11-2025 11:22-0500Mean blood gjiiyykd859 mm[Hg]Dominic Guzman [facility]02-11-2025 11:22-0500 Systolic blood mxzqtyjh898 mm[Hg]Dominic Guzman [facility]02-11-2025 11:22-0500 Respiratory rate16 /minBrayasir Guzman [facility]02-11-2025 11:15-0500 Diastolic blood reixjozc11 mm[Hg]Dominic Guzman [facility]02-11-2025 11:15-0500Heart rate73 /minBradfaftab Marci [facility]02-11-2025 11:15-2097EbL0% (BldA) [Mass fraction]96 %Dominic Guzman [facility]02-11-2025 11:15-0500 Systolic blood lkolyoma633 mm[Hg]Alfaro Marci [facility]02-11-2025 09:04-0500Heart rate68 /minBradfaftab Marci [facility]02-11-2025 09:04-1518PhM4% (BldA) [Mass fraction]99 %Alfaro Marci [facility]02-11-2025 09:04-0500 Diastolic blood mm[Hg]Dominci Marci [facility]02-11-2025 09:04-0500Mean blood vnwwcpwi113 mm[Hg]Alfaro Marci [facility]02-11-2025 09:04-0500 Systolic blood wmqwyiom314 mm[Hg]Dominic Marci [facility]02-11-2025 09:04-0500Body wxebwdjnpzm46.06 [degF]Dominic Guzman [facility]02-11-2025 09:03-0500 Respiratory rate14 /minBradfaftab Guzman [facility]02-07-2025 08:49-0500 Diastolic blood yoonqfkk28 mm[Hg]Nahomy Gardiner [facility]02-07-2025 08:49-0500Heart ccus912 /minAmanda Gardiner [facility]02-07-2025 08:49-0500Mean blood uayilmmo95 mm[Hg]Nahomy Gardiner [facility]02-07-2025 08:49-0500 Respiratory rate18 /minAmanda Zuleyka [facility]02-07-2025 08:49-0500 Systolic blood uzpftdtn626 mm[Hg]Nahomy Gardiner [facility]01-23-2025 10:17-0500Heart rate60 /minBradford Marci [facility]01-23-2025 10:17-8304YiL4% (BldA) [Mass fraction]99 %Dominic Guzman [facility]01-23-2025 10:17-0500 Diastolic blood wygoojbe15 mm[Hg]Dominic Guzman [facility]01-23-2025 10:17-0500Mean blood spiajwjv23 mm[Hg]Dominic Guzman [facility]01-23-2025 10:17-0500 Systolic blood ovwhqyqw119 mm[Hg]Dominic Guzman [facility]01-23-2025 10:17-0500 Respiratory rate16 /minBradford Marci [facility]01-23-2025 10:12-0500 Diastolic blood dyejekpc72 mm[Hg]Dominic Guzman [facility]01-23-2025 10:12-0500Heart rate65 /minBradford Marci [facility]01-23-2025 10:12-9060WiH3% (BldA) [Mass fraction]96 %Dominic Guzman [facility]01-23-2025 10:12-0500 Systolic blood upmdgktn713 mm[Hg]Dominic Guzman [facility]01-23-2025 09:22-0500Heart rate78 /minBradfaftab Marci [facility]01-23-2025 09:22-1865YyN9% (BldA) [Mass fraction]98 %Dominic Guzman [facility]01-23-2025 09:22-0500Body wmxxkszkyyq36.06 [degF]Dominic Guzman [address] [place], [place] 1475601-23-2025 09:18-0500 Diastolic blood orxvwcyp59 mm[Hg]Dominic Guzman [facility]01-23-2025 09:18-0500Mean blood vgvoncrk66 mm[Hg]Alfaro Marci [facility]01-23-2025 09:18-0500 Systolic blood cmpkiuuf826 mm[Hg]Alfaro Marci [facility]01-23-2025 09:17-0500 Respiratory rate15 /minBradfaftab Marci [facility]01-08-2025 11:05-0500 Diastolic blood hgwhokhm27 mm[Hg]Nahomy Gardiner [facility]01-08-2025 11:05-0500Heart gzfy300 /minAmanda Gardiner [facility]01-08-2025 11:05-0500Mean blood oolczwwz818 mm[Hg]Naohmy Gardiner [facility]01-08-2025 11:05-0500 Respiratory rate16 /minAmanda Gardiner [facility]01-08-2025 11:05-0500 Systolic blood unihdruf662 mm[Hg]Nahomy Gardiner [facility]12-13-2024 13:31-0500Body zasufi679.8 Jac VAIL Work Phone: [phone] [place], [place] [address]01212-13-2024 13:31-0500Body mass index (BMI) [Ratio]34.87 kg/m2chad Canadian PA Work Phone: [phone])[facility] [place], [place] [address]Krnezbtyxy91-94-8737 13:31-0500Body typelg729.22 kgTochad Canadian PA Work Phone: [phone])[facility] [place], [place] [address]Hierayuwdo43-33-7223 14:38-0500Body whhyvq338.8 [facility] PA Work Phone: [phone])[facility] [place], [place] [address]Dgbjxlnbmh77-51-9395 14:38-0500Body mass index (BMI) [Ratio]34.87 kg/m2[facility] PA Work Phone: [phone])[facility] [place], [place] [address]Kubqjnqtmq42-97-9582 14:38-0500Body yzzyot331.22 kgchad Canadian PA Work Phone: [phone])[facility] [place], [place] [address]Atwnwjmsll94-40-5098 08:29-0500Body wysnjg063.8 [facility] PA Work Phone: [phone])[facility] [place], [place] [address]Mspgvycowu16-81-8852 08:29-0500Body mass index (BMI) [Ratio]34.87 kg/m2chad Canadian PA Work Phone: [phone] [place], [place] 3946411-11-2024 08:29-0500Body .22 kgchad Canadian PA Work Phone: [facility] Healthcare Encounters Encounter DateEncounter TypeCare ProviderFacilityStart: 08-09-2025 End: 42-79-1795jeqkrcopjzVTGSXS S CRAMERFacility:OMERO BroadlandsAnthonytart: 08-09-2025 End: 54-91-5809Smgzyze encounter procedureMichael R NILL [phone]-EklpxUniversity [facility]als [facility] Kaitlin Start: 07-12-2025 End: 79-48-0702fglzyvqudzRjhfsn SpringerFacility:FTMCStart: 86-92-9513uzcvgydqjbsheri ESTRADAFacility:OMERO Schmitztart: 05-11-2025 End: 87-48-5551hnjfmaqygvWnzrwz SpringerFacility:FTMCStart: 04-20-2025 End: 90-48-7559kijgnikbxzIthpubgq A. JonesFacility:FTMCStart: 03-28-2025 End: 33-84-4634lpizfhieswXfgikv SpringerFacility:FTMCStart: 03-28-2025 End: 59-70-9225Ugwvidi encounter procedureAmanda Gardiner [facility] Start: 80-30-5715lgoblzljsqFPCOHDH [facility] Hospitaltart: 03-01-2025 End: 75-81-0545fwoofwpxtsWOAYVQN So [facility] Start: 02-25-2025 End: 55-86-7858dmorczjmvcKxgmyr SpringerFacility:FTMCStart: 02-25-2025 End: 22-10-0112Uxnkusv encounter procedureAmanda Gardiner [facility] Start: 02-01-2025 End: 41-18-6808hqrgslecdsEqzoveiv A. JonesFacility:FTMCStart: 02-01-2025 End: 95-04-5197Ybws Jt Guzman [facility] Start: 01-18-2025 End: 43-98-4360zxcdcijtkfBobdsy SpringerFacility:FTMCStart: 01-18-2025 End: 72-30-5173Atjtlkk encounter procedureAmanda Gardiner [facility] Start: 01-11-2025 End: 31-96-3259irlobckkxuYrpmvwdr A. JonesFacility:FTMCStart: 01-11-2025 End: 09-67-4925Cfoz Jt Guzman [facility] Start: 12-24-2024 End: 78-08-1835wonvkmhkznQfyvom SpringerFacility:FTMCStart: 12-24-2024 End: 14-08-1552Owmohhq encounter procedureAmanda Lansdowne [facility] Start: 12-20-2024 End: 12-52-0735qwyqbzrnuvKmdmjxvh A. JonesFacility:FTMCStart: 12-20-2024 End: 85-04-1067Qihk ManagementDominic Guzman [facility] Start: 12-08-2024 End: 86-14-7205iyjtjqetpnIpqvij SpringerFacility:FTMCStart: 12-08-2024 End: 70-91-3553Vxujrvk encounter procedureAmanda Lansdowne [facility] Start: 11-23-2024 End: 03-91-6901jtunoghwqtEvlgqkhs A. JonesFacility:FTMCStart: 11-23-2024 End: 94-61-5979Jfcm Jt Guzman [facility] Start: 11-19-2024 End: 30-39-3003dktworgsaqOjgqiv SpringerFacility:FTMCStart: 11-19-2024 End: 44-35-2688Skuxmqm encounter procedureAmanda Lansdowne [facility] Start: 11-04-2024 End: 95-74-4249jvqandkgrcYdbwtyqt A. JonesFacility:FTMCStart: 11-04-2024 End: 20-07-4755Gbui Jt Guzman [facility] Start: 10-20-2024 End: 41-74-9749tggddgquukBptapb SpringerFacility:FTMCStart: 10-20-2024 End: 64-59-1707Qfefvyu encounter procedureAmanda Gardiner [facility] Start: 09-24-2024 End: 47-48-6194Vliprp flowsSavita VAIL Work Phone: [facility]OStart: 09-24-2024 End: 07-74-0373Gogqck flowsheetLeo VAIL Work Phone: [facility] ORTHOStart: 09-24-2024 End: 29-98-1257Xklgiug encounter procedureLeo VAIL Work Phone: [facility] NB ORTHOComment on above:Right-sided low back pain with right-sided sciatica, unspecified chronicity (Primary Dx); Lumbosacral radiculopathy due to osteoarthritis of spineStart: 09-24-2024 End: 99-60-5232pvoeynmnzsEPWU D HILLSNot AvailableStart: 09-17-2024 End: 06-09-6405eylbnydhvwBCQU D HILLSNot AvailableStart: 09-13-2024 End: 42-44-4366Gjhzftw encounter procedureTochad VAIL Work Phone: [facility] NB ORTHOComment on above:Low back pain, unspecified back pain laterality, unspecified chronicity, unspecified whether sciatica present (Primary Dx)Start: 09-13-2024 End: 01-82-6967uifteiysaqKCAA D HILLSNot AvailableStart: 09-13-2024 End: 16-36-1405lwnxnubxhuYPUC D HILLSNot AvailableStart: 09-07-2024 End: 28-53-4921pnhbbqdlguCUMDQQO A CENTENNI[facility]ILL[facility] HOSPITALMikeC[facility] Start: 55-65-9958qxkdbkbebdAGRXKPK [facility] Start: 08-23-2024 End: 16-50-2161Xroyrw flowsSavita VAIL Work Phone: [facility]THOStart: 08-23-2024 End: 98-63-3418Rviktj flowsheetTochad VAIL Work Phone: [facility] ORTHOStart: 08-23-2024 End: 25-91-9892Ggumnys encounter procedureTochad VAIL Work Phone: [facility] NB ORTHOComment on above:Right knee pain, unspecified chronicity (Primary Dx); Low back pain, unspecified back pain laterality, unspecified chronicity, unspecified whether sciatica presentStart: 08-23-2024 End: 50-34-3257zwrwupkfftCCNE D HILLSNot AvailableStart: 03-24-2021 End: 21-33-0183yhvgsueixpJH GAIL HUTCHISONFacility:H1 Procedures DateProcedureProcedure DetailPerforming ClinicianStart: 02-54-5425Tkubujucy of sacroiliac joint using fluoroscopic guidanceMichael NILL Start: 33-23-0411Ndfnpoqpi of articular surface of bone (body structure)Nahomy [employer] start: 76-26-8870Fjfshxism into facet joint of lumbar spine using fluoroscopic guidanceAmanda [employer] start: 72-54-1730Akezokhgu of sacroiliac joint using fluoroscopic guidanceAmanda [employer] start: 96-55-0440Qtmxsxkff of nerve root of lumbar spine using fluoroscopic guidanceAmanda [employer] start: 69-22-2518Hhcuz spine lumbosacral minimum 4 viewsLeo VAIL Work Phone: Start: 14-32-7327Ftrhfmkyqk examination knee 1/2 views Leo VAIL Work Phone: Start: 14-93-7075Rzyvi flx w/rmvl of tumor polyp lesion snare tqAmanda [employer] start: 04-35-1247OklzfpyykckQuvtqvk NILL [facility]oscopyColinY[facility] Plan of Treatment DateCare ActivityDetailAuthorStart: 09-24-2024 End: 77-84-3222Kefyyfv encounter igdfyqmci05/13/2024 1:30 PM EST Office Visit [facility] [address] [phone] Loe Alexander, PA [address] [place] [address] ArrivedSANPETE VALLEY [facility] ORTHOComment on above:ArrivedStart: 09-13-2024 End: 10-11-7843Antxoln encounter zxauqcrcr33/02/2024 2:30 PM EST Office Visit [facility] [address] [phone] Leo Alexander, PA [address] [place] [address] [facility] ORTHOStart: 08-23-2024 End: 33-43-7860Tsmodss encounter meudpaclc76/11/2024 8:15 AM EST Office Visit [facility] [address] [place] [phone] Leo Alexander, PA [address] [place] [address] [facility] ORTHOComment on above:ArrivedStart: 06-13-2024 Influenza vaccinationInfluenza Vaccine (#1)[facility] HealthcareStart: 1966 [facility] Immunizations Immunization DateImmunizationNotesCare WhiqioutUpndadkg78-80-5092fovdxfqrt virus vaccine, unspecified formulationTo Benjamin VAIL Work Phone: [facility] CenterXasxdiuabr12-82-6725GGWN-EtJ-1 (COVID-19) mRNAMUL.ORD!g96315Awxwmxr NILL [phone]-NzbuhUniversity Hospitals Conne[facility] General Surgery [place] 69-52-5687JXCX-CoV-2 (COVID-19) mRNA BNT-162b2 vaxMichael NILL [phone]-RoxwwUniversity Hospitals Conne[facility] General Surgery [place] 66-83-5217PIPY-CoV-2 (COVID-19) mRNA BNT-162b2 vaxMichael NILL [phone]-YjyvtUniversity Hospitals Conneaut Medical Center General Surgery [place] Comment on above:Result Comment: 2025-06-20: [id number]-AzY-2 (COVID- 19) mRNA BNT-162b2 vaxMichael NILL [phone]-GlhokLakehealth [facility] Surgery [place] Comment on above:Result Comment: 2025-06-20: [id number] Payers DatePayer CategoryPayerPolicy [id number] Health Insurance [id number] [id number] Cross Blue ShieldBCBS Member Subscriber Plan / Payer (Effective 2014- Present) Name: Bernardo Jimenez Relation to Subscriber: Self Name: Bernardo Jimenez Payer ID: Not on file Type: Not on file Address: [address] [id number] 84.1.746969.3.57[id number] .1.286897.3.57[id number] 2.16.840.1.306697.3.57[id number] 2.16.840.1.996020.3.57[id number] 2.16.840.1.565566.3.57[id number] 2.16.840.1.830868.3.57[id number] 2.16.840.1.154764.3.57[id number] 2.840.1.646826.3.579.2.20240-59-6485Svhhyrl76312596 2.16840.1.647044.3.57[id number] 2.16.840.1.041736.3.57[id number] 2..840.1.366128.3.57[id number] 2.16840.1.063828.3.579.2.[id number] 2.16840.1.573760.3.57[id number] 2.16.840.1.749236.3.579.2.28[id number] 2.16.840.1.071179.3.57[id number] 2.16.840.1.167351.3.579.[id number] 2.16.840.1.680494.3.57[id number] 2..840.1.494341.3.579.[id number] 2..840.1.475851.3.57[id number] 2.840.1.256449.3.57[id number] 2..840.1.321686.3.57[id number] 2.840.1.125991.3.579.[id number] 2.0.1.934689.3.579.[id number] Social History DateTypeDetailFacilityTobacco smoking status NHISTobacco smoking consumption unknownNOMS HealthcareStart: 85-41-0085Hgr assigned at birthNot on [facility] HealthcareStart: 08-23-2024 End: 92-41-5645Uoigqp identityNot on [facility] Centertart: 08-23-2024 End: 27-99-0993Geosxdo smoking status NHISNever smoked tobaccoNOMS Healthcare Start: 96-55-1054Srryvsp use and exposureSmokeless tobacco non-userNOMS HealthcareStart: 08-23-2024 End: 36-88-0042Giqgjnwrn beverage intakeCurrent drinker of alcohol (finding)[facility] HealthcareStart: 08-23-2024 End: 98-85-9102Hhgwacq of Social functionNOMS HealthcareSexual OrientationC[facility] Medical Center Start: 81-99-2565JpqCbux (finding)[facility] CenterTobacco smoking statusNeverUniversity Hospitals [facility] General Surgery [place] Functional Status GkymQlgjxfpvkhWoqlzsLlujxgfv42-02-6627Xpaflfoxmz StatusN/[facility]IAMMer[facility]04-22-2025Functional StatusN/[facility]04-08-2025 Functional StatusN/[facility]04-01-2025Functional StatusN/A [facility]03-14-2025Functional StatusN/[facility]03-10-2025Functional StatusN/[facility] 22-08-0314Qgrgpcqjhj StatusN/[facility]02-11-2025Functional StatusN/[facility]02-07-2025Functional StatusN/[facility]01-23-2025Functional StatusN/[facility] [id number] StatusN/[facility] Clinical Notes 08-23-2024 to 08-09-2025 Note Date & [id number] NoteGeneral Surgery Office/Clinic Note Chief Complaint consultation for colonoscopy HPI Staff 60 year old male presents on consultation from Alice Estrada for surveillance colonoscopy. Last colonoscopy completed 06/2020 with tubular adenoma x 2. Family history of colon cancer in father- age unknown, mother- age 60's and brother- age 60's. Unsure if brother had genetic testing. Denies abdominal or rectal pain. No rectal bleeding or change in bowel habits. Denies nausea, vomiting or weight loss. History of Present Illness 60 yo male with h/o htn, hypercholesterolemia, hypertriglyceridemia, chronic lumbar radiculopathy, chronic pain d/o; HIV infection, referred for surveillance colonoscopy; patient with h/o tubular adenomas and tubulovillous adenoma, last colonoscopy 2019 with removal of small tubular adenomas; also fmhx of colon cancer in both parents and brother; denies change in bms or blood in stools, no abd complaints; no abd operations; on ibuprofen prn, no asa; no tobacco use; no fmhx of IBD. Review of Systems PHQ Score Initial Depression Screen Score: 0 SCORE ROS - Provider Constitutional: no fever, no sweats, no weight loss. Eyes: yes glasses, no blurred vision, no visual loss. ENMT: no dentures, no hoarseness, no swallowing difficulties, no hearing loss, no ear infection(s),no nose bleeds. Cardiovascular: normal blood pressure, no chest pain, regular heartbeat, no heart murmur. Respiratory: no shortness of breath, no cough, no asthma, no wheezing. Gastrointestinal: no nausea, no vomiting, no diarrhea, no constipation, no blood in stool, no change in bowel habits, no abdominal pain, no hepatitis. Genitourinary: no kidney stones, no urine infection, no dysuria. Musculoskeletal: no pain, no weakness. Skin: no changing moles, no rash, no skin lumps. Neurologic: no seizures, no epilepsy, no headache. Psychiatric: no emotional or psychiatric problem. Heme/Lymph: no bleeding problems, no anemia, no blood clots, no transfusions. Allergy/Immunologic: no swollen lymph nodes/glands, no IV drug abuse. Other: Additional ROS info: Except as noted in the above Review of Systems and in the History of Present Illness, all other systems have been reviewed and are negative or noncontributory. Physical Exam Vitals & Measurements HR: 72(Peripheral) RR: 16 BP: 118/74 HT: 72 in HT: 184 cm WT: 245.154 lb WT: 111.2 kg BMI: 32.84 HEENT: normal conjunctiva, sclera clear, no scleral icterus, EOM intact, PERRLA, oral mucosa moist without lesions. Neck: trachea midline, no mass, symmetric, no thyromegaly or nodules, no adenopathy Respiratory: lungs CTA, respirations non labored. Cardiovascular: regular rate and rhythm, no murmur, no pedal edema or varicosities. Gastrointestinal: obese, soft, non distended, no tenderness, no masses, no palpable hernias, diastasis recti no, no hepatosplenomegaly; normal bs Musculoskeletal: normal gait, digits and nails without infection, nodes, cyanosis, clubbing. Skin: no rashes, no lesions, no ulcers, no subcutaneous nodules, induration. Psychiatric/Neuro: oriented to time, place, person, judgement normal, affect appropriate for age, insight intact, no focal deficits. Tests:, review of old records completed , Discussed surgical options, risks, and possible complications with patient. Assessment/Plan 1. Personal history of adenomatous and serrated colon polyps (Z86.0101: Personal history of adenomatous and serrated colon polyps) plan surveillance colonoscopy under anesthesia, informed consent obtained. 2. Family history of colon cancer (Z80.0: Family history of malignant neoplasm of digestive organs) see # 1 Follow-up No qualifying data available Problem List/Past Medical History Ongoing Arthritis of facet joint of lumbar spine Bilateral sacroiliitis BMI 32.0-32.9,adult Chronic lumbar radiculopathy Chronic pain disorder Family history of colon cancer Human immunodeficiency virus infection Hypercholesterolemia Hypertension Hypertriglyceridemia Mixed hyperlipidemia Obesity due to excess calories Personal history of adenomatous and serrated colon polyps Personal history of colon polyps, unspecified Historical No qualifying data Procedure/Surgical History Injection of sacroiliac joint using fluoroscopic guidance (04/20/2025), Facet (01/11/2025), Injection into facet joint of lumbar spine using fluoroscopic guidance (12/20/2024), Injection of sacroiliac joint using fluoroscopic guidance (11/23/2024), Injection of nerve root of lumbar spine using fluoroscopic guidance (11/04/2024), Colonoscopy, flexible; with removal of tumor(s), polyp(s), or other lesion(s) by snare technique (07/12/2020), Colonoscopy (12/2016). Medications atorvastatin 40 mg Tab, 40 mg= 1 tab(s), Oral, Daily Butrans 5 mcg/hr transdermal film, extended release, 1 patch(es), TransDermal, qWeek Descovy 200 mg-25 mg oral tablet, 1 tab(s), Oral, Daily hydrochlorothiazide, 25 mg, Oral, Daily ibuprofen 20 (more content not included)...[facility] on [facility]:Result Comment: Electronically Signed By: KARINA SANTOS, Sidney Wood\Date and Time Signed: 08/09/25 13:42 [id number] NoteEligibility: Patient meets program eligibility for 2024 and submitted program eligibility for 2024 -and partial 2025[facility] NoteConsultation Note Patient: BERNARDO JIMENEZ Age: 60 years Sex: Male : 1965 Associated Diagnoses: None Author: Nahomy Gardiner PA-C Subjective Chief complaint 07/12/2025 14:26 EDT back pain . Patient is a 60-year-old male who presents today for a follow-up after trialing amitriptyline. Unfortunate, it made his head feel funny and he felt like he was going to fall over so he stopped takingit. He continues to have lower back pain. Patient previously underwent a right sided sacroiliac joint injection. This was done on 04/20/2025 and unfortunately, did not help patient in the lower back. His groin pain is better but his back pain was not. Prior to that patient underwent right sided medial branch RFA covering the L4-S1 facet joints. This was done on 02/01/2025 and at this time has given him significant relief. 50%. He has a histo ry of transforaminal epidurals injection for the leg pain that is still better. At this time though he is having back pain. He rates a 5/10. It affects his ambulatory status. Affects his quality life and affects his activities and affects his ability to do things comfortably. Hestates that things are better than before but he still is not where he wants to be and he wonders what other medications he can utilize to try to get relief. No radiculopathy at this time. Gabapentin made him tired. Lyrica caused erectile dysfunction issues and some other side effects. Health Status Allergies: Allergic Reactions (Selected) Severity Not Documented Sulfa drugs- Rash., Allergies (1) Active Severity Reaction sulfa drugs Rash Current medications: (Selected) Prescriptions Prescribed Butrans 5 mcg/hr transdermal film, extended release: 1 patch(es), TransDermal, qWeek for 4 week(s),4 patch(es), Refill(s) 0, [facility], 184, cm, 07/12/25 14:36:00 EDT, Height/Length Dosing, 112.5, kg, 07/12/25 14:36:00 EDT, Weight Dosing amitriptyline 10 mg Tab: See Instructions, 10 mg qhS x 1 month. If needed after 1 month can go to 20 mg qhs, # 90 tab(s), Refills(s) 0, Pharmacy: [facility], 184, cm, 05/11/25 14:20:00 EDT,Height/Length Dosing, 113.5, kg, 05/11/25 14:20:00 EDT, Weight Dosing Documented Medications Documented Descovy 200 mg-25 mg oral tablet: 1 tab(s), Oral, Daily, Refill(s) 0, for HIV Tivicay 50 mg oral tablet: 50 mg = 1 tab(s), Oral, Daily, for HIV, Refills(s) 0 atorvastatin 40 mg Tab: 40 mg = 1 tab(s), Oral, Daily, Refills(s) 0 hydrochlorothiazide: 25 mg, Oral, Daily, Refills(s) 0, High blood pressure ibuprofen 200 mg Tab: 400 mg = 2 tab(s), Oral, q4hr, PRN for pain, # 120 tab(s), Refills(s) 0 lisinopril: 40 mg, Oral, Daily, Refills(s) 0, High blood pressure Problem list: All Problems Hypertension / SNOMED CT 4996892416 / Confirmed Human immunodeficiency virus infection / SNOMED CT 398618829 / Confirmed Hypercholesterolemia / SNOMED CT 35827138 / Confirmed Hypertriglyceridemia / SNOMED CT 909338628 / Confirmed Mixed hyperlipidemia / SNOMED CT 764039703 / Confirmed Obesity due to excess calories / SNOMED CT 3438405107 / Confirmed Personal history of colon polyps, unspecified / SNOMED CT 6337700923 / Confirmed Arthritis of facet joint of lumbar spine / SNOMED CT 7580257844 / Confirmed Bilateral sacroiliitis / SNOMED CT 6397252229 / Confirmed Chronic lumbar radiculopathy / SNOMED CT 170077082 / Confirmed Chronic pain disorder / SNOMED CT 5924999535 / Confirmed Canceled: Acid reflux / SNOMED CT 278039642 Canceled: HIV (human immunodeficiency virus infection) / SNOMED CT 158101213 Canceled: Hypercholesteremia / SNOMED CT 01360632 Objective Vital Signs 07/12/2025 14:26 EDT Peripheral Pulse Rate 85 bpm Respiratory Rate 16 br/min Systolic Blood Pressure 138 mmHg Diastolic Blood Pressure 96 mmHg HI Mean Arterial Pressure, Cuff 110 mmHg General: Alert and oriented, No acute distress. Eye: Normal conjunctiva. HENT: Normocephalic, Normal hearing. Cardiovascular: No edema. Musculoskeletal Normal range of motion. Normal strength. 5/5 lower extremity strength 5/5 upper extremity strength Integumentary: Warm, Dry, [place]. Neurologic: Alert, Oriented. Psychiatric: Cooperative, Appropriate mood & affect. 14 point review of systems was negative unless otherwise noted. Impression and Plan Patient is a 60-year-old male with a past medical history significant for lumbar spondylosis, sacroiliitis, chronic pain and lumbar neuritis. He unfortunate, has not gotten quite the amount of reliefhe is hoping for from all the injections. They have all helped certain areas of pain but this time,he still has back pain and he wonders what medications he can utilize to try to get relief of this but he has now trialed and failed gabapentin, Lyrica and amitriptyline. We discussed other options. We discussed Butrans. Potential side effects were discussed. How to use the medication was discussed. Patient is going to trial this and follow-up in 2 mon (more content not included)...[facility]imaComment on above:Result Comment: Electronically Signed By: Nahomy Gardiner PA-C\.br\Date and Time Signed: 07/12/25 14:44 [id number] NoteConsultation Note Patient: BERNARDO JIMENEZ Age: 60 years Sex: Male : 1965 Associated Diagnoses: None Author: Nahomy Gardiner PA-C Subjective Chief complaint 05/11/2025 14:12 EDT lower back pain . Patient is a 60-year-old male who presents today for a follow-up after undergoing a right sided sacroiliac joint injection. This was done on 04/20/2025 and unfortunate, did not help patient in the lower back. His groin pain is better but his back pain is not. Prior to that patient underwent right sided medial branch RFA covering the L4-S1 facet joints. This was done on 02/01/2025 and at this time has given him significant relief. 50%. He has a history of transforaminal epidurals injection for the leg pain that is still better. At this time though he is having back pain. He rates an 8/10. Worse with certain maneuvers. Worse with certain activities. It is a stabbing type discomfort. He wonders what he can do about this but he feels like the injections have not quite gotten them where he wants to be. He feels that he has gotten relief from each injection in a different area but he still has pain that affects his ability to do things Gabapentin made him tired. Lyrica caused erectile dysfunction issues and some other side effects. Health Status Allergies: Allergic Reactions (Selected) Severity Not Documented Sulfa drugs- Rash., Allergies (1) Active Severity Reaction sulfa drugs Rash Current medications: (Selected) Prescriptions Prescribed amitriptyline 10 mg Tab: See Instructions, 10 mg qhS x 1 month. If needed after 1 month can go to 20 mg qhs, # 90 tab(s), Refills(s) 0, Pharmacy: [facility], 184, cm, 05/11/25 14:20:00 EDT,Height/Length Dosing, 113.5, kg, 05/11/25 14:20:00 EDT, Weight Dosing Documented Medications Documented Descovy 200 mg-25 mg oral tablet: 1 tab(s), Oral, Daily, Refill(s) 0, for HIV Tivicay 50 mg oral tablet: 50 mg = 1 tab(s), Oral, Daily, for HIV, Refills(s) 0 Tylenol Extra Strength 500 mg oral tablet: 1,000 mg = 2 tab(s), Oral, BID, PRN as needed for pain, Refills(s) 0 atorvastatin 20 mg Tab: 20 mg = 1 tab(s), Oral, Daily, Refills(s) 0 hydrochlorothiazide: 25 mg, Oral, Daily, Refills(s) 0, High blood pressure ibuprofen 200 mg oral capsule: 400 mg = 2 cap(s), Oral, BID, PRN as needed for pain, Refills(s) 0 lisinopril: 40 mg, Oral, Daily, Refills(s) 0, High blood pressure Problem list: All Problems Hypertension / SNOMED CT 0224526415 / Confirmed Acid reflux / SNOMED CT 656171817 / Confirmed HIV (human immunodeficiency virus infection) / SNOMED CT 928388217 / Confirmed Hypercholesteremia / SNOMED CT 81584889 / Confirmed Objective Vital Signs 05/11/2025 14:12 EDT Peripheral Pulse Rate 108 bpm HI Respiratory Rate 16 br/min Systolic Blood Pressure 117 mmHg Diastolic Blood Pressure 88 mmHg Mean Arterial Pressure, Cuff 98 mmHg General: Alert and oriented, No acute distress. Eye: Normal conjunctiva. HENT: Normocephalic, Normal hearing. Cardiovascular: No edema. Musculoskeletal Normal range of motion. Normal strength. 5/5 strength Integumentary: Warm, Dry, [place]. Neurologic: Alert, Oriented. Psychiatric: Cooperative, Appropriate mood & affect. 14 point review of systems was negative unless otherwise noted. Impression and Plan Patient is a 60-year-old male with a past medical history segment for lumbar spondylosis, sacroiliitis, lumbar neuritis and chronic pain. Unfortunate, despite the improvement he has gotten from each injection he is still having pain that he states is affecting his ability to sleep. It is affecting his ability to ambulate. It is affecting his quality of life and affecting his activities. We reviewed his imaging once again. We discussed different options. At this time, based on the relief he has gotten from the injections with the fact he is still not where he wants to be I would recommend trialing amitriptyline. He did not tolerate gabapentin or Lyrica. Potential side effects of the amitriptyline were discussed. He is going to trial this and follow-up in 2 months. He will work up to 20 mg at bedtime should it be necessary. GIULIANA score: 30%. As part of providing excellent, safe, comprehensive care, the following was completed at our patient's visit: Reviewed patient's medication reconciliation. Reviewed screening for depression, screening for tobacco use, and patient's Oswestry disability index results. For concerning screenings had a discussionwith the patient, provided patient education, and recommended follow-up with primary care provider when appropriate. Patient noted with risk of falling received education on strength, gait, and balance training to prevent future risk of falling.[facility]imaComment on above:Result Comment: Electronically Signed By: Nahomy Gardiner PA-C\.grzegorz\Date and Time Signed: 05/11/25 14:30 [id number] NoteOperative Report Diagnosis: M46.1, sacroiliitis Procedure: Right diagnostic and therapeutic sacroiliac Joint injection under fluoroscopic guidance Anesthesia: Local Complications: none After informed consent was obtained, the patient was brought back to the procedure room and placed in the prone position. Back areas prepped and draped in the usual sterile fashion using fluoroscopicguidance, the skin and subcutaneous tissues overlying the needle trajectory over the lower aspect of sacroiliac joint were anesthetized with 2% lidocaine. The 22-gauge Quincke needle was then introduced in the lower aspect of the sacroiliac joint. After negative aspiration, injection of contrast under fluoroscopy revealed appropriate intra-articular spread with confirmation in at least 2 views. Th ereafter, after negative aspiration, 2 mL of 0.5% bupivacaine with 40 mg of methylprednisolone was injected into the sacroiliac joint. The needle was then removed. The patient tolerated procedure well. Patient was then transferred to the recovery room in stable condition. Follow-up: The patient will update us on the response to this procedure, and agrees to continue currently prescribed/recommended therapies.[facility] Comment on above:Result Comment: Electronically Signed By: Dominic Guzman DO.br\Date and Time Signed: 04/20/25 15:35 [id number] NoteConsultation Note Patient: BERNARDO JIMENEZ Age: 59 years Sex: Male : 1965 Associated Diagnoses: None Author: Nahomy Gardiner PA-C Subjective Chief complaint 03/28/2025 13:49 EDT right side low back pain . Patient is a 59-year-old male who presents today for a second follow-up after undergoing his right sided medial branch RFA covering the L4-S1 facet joints. This was done on 02/01/2025 and at this timehas given him significant relief. 50%. He has a history of transforaminal epidurals injection for the leg pain that is still better. He also has a history of right sided sacroiliac joint injection for some buttock and groin pain in November 2024 that gave him complete relief of this pain up until recently when it started to return. At this time, he is having the right sided buttock pain with intermittent groin pain that he states is the exact same pain that he had before that he rates a 3???6/10 depending on what he is doing. The more he is up and active the worst the pain gets. He states that things are better than when he originally started coming here but he has having the pain and he iswondering what he can do in regards to this. He is on therapy in the past that has not helped and has taken [id number] medications including ibuprofen with some relief but not enough. Health Status Allergies: Allergic Reactions (Selected) Severity Not Documented Sulfa drugs- Rash., Allergies (1) Active Severity Reaction sulfa drugs Rash Current medications: (Selected) Documented Medications Documented Descovy 200 mg-25 mg oral tablet: 1 tab(s), Oral, Daily, Refill(s) 0, for HIV Tivicay 50 mg oral tablet: 50 mg = 1 tab(s), Oral, Daily, for HIV, Refills(s) 0 Tylenol Extra Strength 500 mg oral tablet: 1,000 mg = 2 tab(s), Oral, BID, PRN as needed for pain, Refills(s) 0 atorvastatin 20 mg Tab: 20 mg = 1 tab(s), Oral, Daily, Refills(s) 0 hydrochlorothiazide: 25 mg, Oral, Daily, Refills(s) 0, High blood pressure ibuprofen 200 mg oral capsule: 400 mg = 2 cap(s), Oral, BID, PRN as needed for pain, Refills(s) 0 lisinopril: 40 mg, Oral, Daily, Refills(s) 0, High blood pressure Problem list: All Problems Hypertension / SNOMED CT 4045235484 / Confirmed Acid reflux / SNOMED CT 357091085 / Confirmed HIV (human immunodeficiency virus infection) / SNOMED CT 807333863 / Confirmed Hypercholesteremia / SNOMED CT 72535628 / Confirmed Objective Vital Signs 03/28/2025 13:49 EDT Peripheral Pulse Rate 105 bpm HI Respiratory Rate 16 br/min Systolic Blood Pressure 159 mmHg HI Diastolic Blood Pressure 94 mmHg HI Mean Arterial Pressure, Cuff 116 mmHg General: Alert and oriented, No acute distress. Eye: Normal conjunctiva. HENT: Normocephalic, Normal hearing. Cardiovascular: No edema. Musculoskeletal Normal range of motion. Normal strength. 5/5 strength Pain with compression of the right sided sacroiliac joint Positive PRANAV test on the right side Positive thigh thrust on the right side Positive Gaenslen's test on the right side Integumentary: Warm, Dry, [place]. Neurologic: Alert, Oriented. Psychiatric: Cooperative, Appropriate mood & affect. 14 point review of systems was negative unless otherwise noted. Impression and Plan Patient is a 59-year-old male with a past medical history significant lumbar neuritis/still improved from previous epidural, lumbar spondylosis and sacroiliitis. Recent RFA did give him relief. Impression, at this time he is once again noticing some right sided buttock and intermittent groin pain that he states is the same pain he had before his previous sacroiliac joint injection. The previous sacroiliac joint injection done in November gave him 100% relief until recently when the pain startedto return. This is once again affecting his ambulatory status. It is affecting his quality of life and affecting his ability to do things he wants to do. At this time, based on the above-mentioned things I recommended repeating a right sided sacroiliac joint traction once again to be done under fluoroscopy for both diagnostic and therapeutic purposes. Procedure was discussed. Risks and benefits were discussed with patient will follow-up 3 weeks after the injection for reevaluation. Call clinic significant separate GIULIANA Score 24%. As part of providing excellent, safe, comprehensive care, the following was completed at our patient's visit: Reviewed patient's medication reconciliation. Reviewed screening for depression, screening for tobacco use, and patient's Oswestry disability index results. For concerning screenings had a discussionwith the patient, provided patient education, and recommended follow-up with primary care provider when appropriate. Patient noted with risk of falling received education on strength, gait, and balance training to prevent future risk of falling.[facility]imaComment on above:Result Comment: Electronically Signed By: Nahomy Gardiner PA-C\.br\Date and Time Signed: 03/28/25 14:15 [id number] Evaluation + Plan noteExtracted from:Title:Pain Managment Follow upAuthor: Nahomy Gardiner PA-CDate:03/28/25 Impression and Plan Patient is a 59-year-old male with a past medical history significant lumbar neuritis/still improved from previous epidural, lumbar spondylosis and sacroiliitis. Recent RFA did give him relief. Impression, at this time he is once again noticing some right sided buttock and intermittent groin pain that he states is the same pain he had before his previous sacroiliac joint injection. The previous sacroiliac joint injection done in November gave him 100% relief until recently when the pain startedto return. This is once again affecting his ambulatory status. It is affecting his quality of life and affecting his ability to do things he wants to do. At this time, based on the above-mentioned things I recommended repeating a right sided sacroiliac joint traction once again to be done under fluoroscopy for both diagnostic and therapeutic purposes. Procedure was discussed. Risks and benefits were discussed with patient will follow-up 3 weeks after the injection for reevaluation. Call clinic significant separate GIULIANA Score 24%. As part of providing excellent, safe, comprehensive care, the following was completed at our patient's visit: Reviewed patient's medication reconciliation. Reviewed screening for depression, screening for tobacco use, and patient's Oswestry disability index results. For concerning screenings had a discussionwith the patient, provided patient education, and recommended follow-up with primary care provider when appropriate. Patient noted with risk of falling received education on strength, gait, and balance training to prevent future risk of falling.[facility] [id number] Note- Agreeable for teskadieon boby. Patient noted improvement with tessalon.[facility] 03-04-2025 Note- Compliant with Humaovy and Tilamaray - Medication adherence counselling was provided, including using reminders - HIV transmission reviewed - Counseled on safe sex, using condoms, U=U, the risk of increasing incidence of STDs including syphilisTr[facility]05-20-2025 Note Attestation signed by Herrera Thompson MD at 03/11/2025 5:17 PM I performed a history and physical examination of the patient Bernardo Jimenez, I independently reviewed the laboratory work and imaging as well as other studies mentioned in the above note; I have seen the patient along with and discussed the management with the Infectious Diseases fellow, Vitor Shaw MD I have reviewed the above note, I agree with the findings and plan of care with the following additions and corrections: As above Partner in clinic with the patient. Hep B today, PCV20 next year Prefers not to have a prostate exam, we will send PSA We will continue to follow this patient longitudinally Thank you for allowing us to participate in the care of this patient. . Subjective Patient ID: Bernardo Jimenez is a 59 y.o. male who presents for Currently asymptomatic HIV infection, with history of HIV-r; Health Maintenance; and Med Management. HPI 59 yo M with PMHx, Past Surg Hx, FMHx, and Social Hx per below presenting for re-evaluation in HIV clinic. Last seen in HIV clinic in Aug 2024. HIV: - No issues with medications. Compliant with Descovy and Tivicay. No missed doses. - Symptoms: some stomach pains given NSAID use for pain control. Constipation. - Labs in Aug 2024 - Cr = 1.52; BUN = 24 - WBC = 13.83; Hgb = 16.5; Platelets = 274 - CD4 Abs = 1692 - RPR negative; Gonorrhoeae and chlamydia negative - HIV not detected. URI: - 2 weeks ago, patient felt he contracted a URI. - Had a cough and URI symptoms. COVID was negative. - Patient's partner also had similar symptoms. - Patient feels slightly congested and still coughing up some sputum. Patient had the URI about 1.5 months ago. Feels he contracted it from a colleague at work. The patient is interested in resuming tessalon pearles as it mitigated his cough. Hypertension: - BP is slightly high at 146/93. Patient is in acute pain from his orthopedic issues. - Patient does not measure BP at home. - No real symptoms of hypertension at this time. Ortho Hip Pain and Sciatica: - Right sided low back pain with right sided sciatica receiving injections. - Last seen in clinic in September 2024. Maintenance: - Agreeable for zooster. - Patient agreeable for Hep B recombinant vaccine - Next year he will need PNA vaccine. - Agreeable for PSA screening Past Medical History: Past Medical History: Diagnosis Date HIV (human immunodeficiency virus infection) ([facility] [facility] Patient Active Problem List Diagnosis Adhesive capsulitis of shoulder Carpal tunnel syndrome Dyspnea Primary hypertension Gastroesophageal reflux disease Human immunodeficiency virus infection ([facility]) Insomnia Lesion of ulnar nerve Mixed hyperlipidemia Nonspecific tuberculin test reaction Class 1 obesity due to excess calories without serious comorbidity with body mass index (BMI) of 32.0 to 32.9 in adult Preventative health care Osteoarthritis Past Surgical History: No past surgical history on file. Medications: Current Outpatient Medications on File Prior to Visit Medication Sig Dispense Refill Descovy 200-25 mg tablet TAKE ONE TABLET BY MOUTH EVERY DAY DIRECTED 30 tablet 5 hydroCHLOROthiazide (HYDRODiuril) 25 mg tablet Take 1 tablet (25 mg) by mouth in the morning. 90 tablet 1 lisinopril 40 mg tablet Take 1 tablet (40 mg) by mouth in the morning. 90 tablet 1 predniSONE (Deltasone) 10 mg tablet Take 5 tabs p.o. daily x3 days Take 4 tabs p.o. daily x3 days Take 3 tabs p.o. daily x3 days Take 2 tabs p.o. daily x3 days Take 1 tab p.o. daily x3 days atorvastatin (Lipitor) 20 mg tablet TAKE ONE TABLET BY MOUTH EVERY DAY 90 tablet 1 gabapentin (Neurontin) 300 mg capsule Take 1 capsule (300 mg) by mouth two times daily. 60 capsule 1 [DISCONTINUED] emtricitabine-tenofovir alafen (Descovy) 200-25 mg tablet Take 1 tablet by mouth once daily as directed. 30 tablet 5 [DISCONTINUED] hydroCHLOROthiazide (HYDRODiuril) 25 mg tablet TAKE ONE TABLET BY MOUTH EVERY DAY 90 tablet 1 [DISCONTINUED] lisinopril 40 mg tablet TAKE ONE TABLET BY MOUTH EVERY DAY 90 tablet 1 [DISCONTINUED] Tivicay 50 mg tablet TAKE ONE TABLET BY MOUTH EVERY MORNING 90 tablet 1 No current facility-administered medications on file prior to visit. Social History: Social History Socioeconomic History Marital status: Single Spouse name: None Number of children: None Years of education: None Highest education level: None Occupational History None Tobacco Use Smoking status: Never Passive exposure: Never Smokeless tobacco: Never Vaping Use Vaping status: Never Used Substance and Sexual Activity Alcohol use: Not Currently Comme (more content not included)...[facility] 02-25-2025 Evaluation + Plan noteExtracted from:Title:Pain Managment Follow up Author:Nahomy Gardiner PA-CDate:02/25/25 Impression and Plan patient is a 59-year-old male with a past medical history significant for lumbar spondylosis, sacroiliitis and lumbar neuritis. Recent right sided medial branch RFA covering the L4-S1 facet joints has started to give him relief of the back pain. He states that it took about 2 weeks but he is noticing some improvement. He also was noticing some intermittent groin and buttock pain and leg numbness a nd tingling that he knows is from his other issues. He has a history of sacroiliac joint injection with significant relief and transforaminal epidurals or injection also with significant relief but at this time, he wants to give himself a little bit more time. We discussed the possibility of futurerepeat sacroiliac joint injection as well as transforaminal epidural steroid injection but at this time, patient does not feel that he requires either of these quite yet. He wants to follow-up in 3 to 4 weeks and discuss his options at that time. We will facilitate an appointment and he will call us in the interim should he require anything from our services. GIULIANA score: 22%. As part of providing excellent, safe, comprehensive care, the following was completed at our patient's visit: Reviewed patient's medication reconciliation. Reviewed screening for depression, screening for tobacco use, and patient's Oswestry disability index results. For concerning screenings had a discussionwith the patient, provided patient education, and recommended follow-up with primary care provider when appropriate. Patient noted with risk of falling received education on strength, gait, and balance training to prevent future risk of falling. Future Appointments Appointment Date:03/24/2025 09:45:00 AM Scheduled Provider:Nahomy Gardiner PA-C Location:[facility] Appointment Type:Pain Management - Follow Up (FT) [facility] 05-16-2025 NoteConsultation Note Patient: BERNARDO JIMENEZ Age: 59 years Sex: Male : 1965 Associated Diagnoses: None Author: Nahomy Gardiner PA-C Subjective Chief complaint 02/25/2025 13:21 EDT back pain . Patient is a 59-year-old male who presents today for follow-up after undergoing his right centimeter branch RFA covering the L4-S1 facet joints. This was done on 02/01/2025 and at this time has given him significant relief. Maybe 50%. He states that his back pain is better but he is noticing some intermittent buttock and groin pain and intermittent leg numbness and tingling but the pain is still better. He has a history of sacroiliac joint injection for the buttock pain that got better and he has a history of transforaminal epidurals injection for the leg pain that got better. He feels like some of these pains are maybe beginning to return but this time, he wants to give himself some more time after the RFA. He rates his current pain as a 4/10. Health Status Allergies: Allergic Reactions (Selected) Severity Not Documented Sulfa drugs- Rash., Allergies (1) Active Severity Reaction sulfa drugs Rash Current medications: (Selected) Documented Medications Documented Descovy 200 mg-25 mg oral tablet: 1 tab(s), Oral, Daily, Refill(s) 0, for HIV Tivicay 50 mg oral tablet: 50 mg = 1 tab(s), Oral, Daily, for HIV, Refills(s) 0 Tylenol Extra Strength 500 mg oral tablet: 1,000 mg = 2 tab(s), Oral, BID, PRN as needed for pain, Refills(s) 0 atorvastatin 20 mg Tab: 20 mg = 1 tab(s), Oral, Daily, Refills(s) 0 hydrochlorothiazide: 25 mg, Oral, Daily, Refills(s) 0, High blood pressure ibuprofen 200 mg oral capsule: 400 mg = 2 cap(s), Oral, BID, PRN as needed for pain, Refills(s) 0 lisinopril: 40 mg, Oral, Daily, Refills(s) 0, High blood pressure Problem list: All Problems Hypertension / SNOMED CT 6629968231 / Confirmed Acid reflux / SNOMED CT 783892107 / Confirmed HIV (human immunodeficiency virus infection) / SNOMED CT 499934820 / Confirmed Hypercholesteremia / SNOMED CT 22555206 / Confirmed Objective Vital Signs 02/25/2025 13:21 EDT Peripheral Pulse Rate 113 bpm HI Respiratory Rate 14 br/min Systolic Blood Pressure 129 mmHg Diastolic Blood Pressure 88 mmHg Mean Arterial Pressure, Cuff 102 mmHg General: Alert and oriented, No acute distress. Eye: Normal conjunctiva. HENT: Normocephalic, Normal hearing. Cardiovascular: No edema. Musculoskeletal Normal range of motion. Normal strength. Injection sites well-healed 5/5 strength Integumentary: Warm, Dry, [place]. Neurologic: Alert, Oriented. Psychiatric: Cooperative, Appropriate mood & affect. 14 point review of systems was negative unless otherwise noted. Impression and Plan patient is a 59-year-old male with a past medical history significant for lumbar spondylosis, sacroiliitis and lumbar neuritis. Recent right sided medial branch RFA covering the L4-S1 facet joints has started to give him relief of the back pain. He states that it took about 2 weeks but he is noticing some improvement. He also was noticing some intermittent groin and buttock pain and leg numbness a nd tingling that he knows is from his other issues. He has a history of sacroiliac joint injection with significant relief and transforaminal epidurals or injection also with significant relief but at this time, he wants to give himself a little bit more time. We discussed the possibility of futurerepeat sacroiliac joint injection as well as transforaminal epidural steroid injection but at this time, patient does not feel that he requires either of these quite yet. He wants to follow-up in 3 to 4 weeks and discuss his options at that time. We will facilitate an appointment and he will call us in the interim should he require anything from our services. GIULIANA score: 22%. As part of providing excellent, safe, comprehensive care, the following was completed at our patient's visit: Reviewed patient's medication reconciliation. Reviewed screening for depression, screening for tobacco use, and patient's Oswestry disability index results. For concerning screenings had a discussionwith the patient, provided patient education, and recommended follow-up with primary care provider when appropriate. Patient noted with risk of falling received education on strength, gait, and balance training to prevent future risk of falling.[facility]imaComment on above:Result Comment: Electronically Signed By: Nahomy Gardiner PA-C\.br\Date and Time Signed: 02/25/25 13:39 [id number] Evaluation + Plan noteExtracted from:Title:Pain Managment Follow upAuthor: Nahomy Gardiner PA-CDate:01/18/25 Impression and Plan Patient is a 59-year-old male with a past medical history significant for chronic lower back pain, intermittent lumbar neuritis still somewhat improved from previous epidural steroid injection and lumbar spondylosis. He underwent his second right sided medial branch block covering the L4-S1 facet joint. This was done on 01/11/2025 and gave significant short-term relief. The first was done in December 2024 and also gave him significant short-lived relief. Since he has undergone 2 medial branch blocksboth with significant short-term relief we discussed pursuing right sided medial branch RFA covering the L4-S1 positions. This will be done under fluoroscopy for therapeutic purposes. Procedure was di scussed. Risks and benefits were discussed. Patient is agreeable. He is going to follow-up 3 weeks after the RFA for reevaluation. Call clinic sooner if necessary. GIULIANA score: 36%.[facility] [id number] NoteConsultation Note Patient: BERNARDO JIMENEZ Age: 59 years Sex: Male : 1965 Associated Diagnoses: None Author: Nahomy Gardiner PA-C Subjective Chief complaint 01/18/2025 12:51 EDT back pain . Patient is a 59-year-old male who presents today for follow-up after undergoing his second right sided medial branch block covering the L4-S1 facet joints. This was done on 01/11/2025 and gave him significant relief. He had 80 to 100% relief for the first 4 hours. Unfortunately, by the 24-hour gail his pain had then returned back to baseline at a 5/10. It is in the right lower back. He is noting that his right leg pain is once again starting to return. This was previously improved from transforaminal epidural steroid injection. He was pleased, relief the transforaminal epidural steroid injection gave him but he is noting that this pain is starting to return but at this time, he wants to continue the process for his right lower back pain as he has a stabbing type discomfort in his right lower back that affects his ambulatory status. Affects his quality life. Affects his activities and affects his ability to do things he wants to do. He has done therapy in the past that has not helped. He has used ibuprofen with some relief and notenough. Health Status Allergies: Allergic Reactions (Selected) Severity Not Documented Sulfa drugs- Rash., Allergies (1) Active Severity Reaction sulfa drugs Rash Current medications: (Selected) Documented Medications Documented Descovy 200 mg-25 mg oral tablet: 1 tab(s), Oral, Daily, Refill(s) 0, for HIV Tivicay 50 mg oral tablet: 50 mg = 1 tab(s), Oral, Daily, for HIV, Refills(s) 0 Tylenol Extra Strength 500 mg oral tablet: 1,000 mg = 2 tab(s), Oral, BID, PRN as needed for pain, Refills(s) 0 atorvastatin 20 mg Tab: 20 mg = 1 tab(s), Oral, Daily, Refills(s) 0 hydrochlorothiazide: 25 mg, Oral, Daily, Refills(s) 0, High blood pressure ibuprofen 200 mg oral capsule: 400 mg = 2 cap(s), Oral, BID, PRN as needed for pain, Refills(s) 0 lisinopril: 40 mg, Oral, Daily, Refills(s) 0, High blood pressure Problem list: All Problems Hypertension / SNOMED CT 3276363439 / Confirmed Acid reflux / SNOMED CT 140912046 / Confirmed HIV (human immunodeficiency virus infection) / SNOMED CT 044930007 / Confirmed Hypercholesteremia / SNOMED CT 52783733 / Confirmed Objective Vital Signs 01/18/2025 12:51 EDT Peripheral Pulse Rate 97 bpm Respiratory Rate 14 br/min Systolic Blood Pressure 148 mmHg HI Diastolic Blood Pressure 102 mmHg HI Mean Arterial Pressure, Cuff 117 mmHg General: Alert and oriented, No acute distress. Eye: Normal conjunctiva. HENT: Normocephalic, Normal hearing. Cardiovascular: No edema. Musculoskeletal Normal range of motion. Normal strength. 5/5 lower extremity strength Pain with compression of the right sided lumbar facet joints Increased right-sided lower back pain with facet loading Integumentary: Warm, Dry, [place]. Neurologic: Alert, Oriented. Psychiatric: Cooperative, Appropriate mood & affect. 14 point review of systems was negative unless otherwise noted. Impression and Plan Patient is a 59-year-old male with a past medical history significant for chronic lower back pain, intermittent lumbar neuritis???still somewhat improved from previous epidural steroid injection and lumbar spondylosis. He underwent his second right sided medial branch block covering the L4-S1 facetjoint. This was done on 01/11/2025 and gave significant short-term relief. The first was done in December 2024 and also gave him significant short-lived relief. Since he has undergone 2 medial branch blocks both with significant short-term relief we discussed pursuing right sided medial branch RFA covering the L4-S1 positions. This will be done under fluoroscopy for therapeutic purposes. Procedure was discussed. Risks and benefits were discussed. Patient is agreeable. He is going to follow-up 3 weeks after the RFA for reevaluation. Call clinic sooner if necessary. GIULIANA score: 36%.[facility]imaComment on above:Result Comment: Electronically Signed By: Zuleyka REEVES, Nahomy\.br\Date and Time Signed: 01/18/25 13:20 [id number] Evaluation + Plan noteExtracted from:Title:Right lumbar medial branch RFA to target L4/5 and L5/S1 facetsAuthor:Dominic Guzman DO.Date:02/01/25 Diagnosis: M47.816, bilatera l lumbar spondyloarthropathy Procedure: Right lumbar medial branches/posterior rami radiofrequency ablation to target the facet joints of L4/5 and L5/S1 Anesthesia: Local Complications: None After informed consent was obtained, the patient was brought to the procedure room and placed in the prone position. The back area is prepped and draped in usual sterile fashion. The patient was placed on monitors. Using fluoroscopic guidance skin and subcutaneous tissue overlying needle trajectories to the target sites were anesthetized with 2% lidocaine. 20-gauge radiofrequency needles were advanced under fluoroscopic guidance to the appropriate anatomic landmarks. Needle tip position was confirmed in both the AP and lateral views. Next, all levels on the right were stimulated at 2Hz for motor stimulation at 2.0V with no lower extremity motor contractions. Next 1.0mL of 2.0% lidocaine wasinjected through each needle tip. Thereafter, radiofrequency lesioning was carried out at 80 degrees for 80 seconds twice. The needles were removed. The patient was then transferred to the recovery room in stable condition. Postprocedure lower extremity strength 5/5 bilaterally in hip flexors, quads, hamstrings, plantarflexion/dorsiflexion/FHL/EHL. Follow-up: Discharge instructions provided. The patient agrees to continue currently prescribed/recommended therapies. Future Appointments Appointment Date:02/25/2025 01:15:00 PM Scheduled Provider:Nahomy Gardiner PA-C Location:[facility] Appointment Type:Pain Management - Follow Up (FT) [facility] 04-01-2025 Evaluation + Plan noteExtracted from:Title: Right lumbar medial branch blocks target L4/5 and L5/S1 facets #2Author:Dominic Guzman DODate:01/11/25 Diagnosis: m47.816, lumbar s pondyloarthropathy Procedure: Right diagnostic lumbar medial branch blocks under fluoroscopic guidance, targeting the L4/5 and L5/S1 facet joints Anesthesia: Local Complications: none After informed consent was obtained, the patient was brought to the procedure room and placed in the prone position. The back area is prepped and draped in usual sterile fashion. Using fluoroscopic guidance skin and subcutaneous tissue overlying needle trajectories to the target sites were anesthetized with 2% lidocaine. 22-gauge needles were advanced under fluoroscopic guidance to the appropriate anatomic landmarks. Needle tip position was confirmed using fluoroscopy in at least 2 views. Injection of small amount of contrast through each needle tip revealed appropriate spread without vascular take. Subsequently, 0.5 mL of 0.5% bupivacaine was injected at each needle tip. The needles were re moved. The patient was then transferred to the recovery room in stable condition. Follow-up: Should the patient have pain relief, the patient may be a candidate for radiofrequency lesioning. The patient agrees to continue currently prescribed/recommended therapies. Future Appointments Appointment Date:01/18/2025 12:45:00 PM Scheduled Provider:Nahomy aGrdiner PA-C Location:[facility] Appointment Type:Pain Management - Follow Up (FT) [facility] 04-01-2025 NoteOperative Report Diagnosis: m47.816, lumbar spondyloarthropathy Procedure: Right diagnostic lumbar medial branch blocks under fluoroscopic guidance, targeting the L4/5 and L5/S1 facet joints Anesthesia: Local Complications: none After informed consent was obtained, the patient was brought to the procedure room and placed in the prone position. The back area is prepped and draped in usual sterile fashion. Using fluoroscopic guidance skin and subcutaneous tissue overlying needle trajectories to the target sites were anesthetized with 2% lidocaine. 22-gauge needles were advanced under fluoroscopic guidance to the appropriate anatomic landmarks. Needle tip position was confirmed using fluoroscopy in at least 2 views. Injection of small amount of contrast through each needle tip revealed appropriate spread without vascular take. Subsequently, 0.5 mL of 0.5% bupivacaine was injected at each needle tip. The needles were re moved. The patient was then transferred to the recovery room in stable condition. Follow-up: Should the patient have pain relief, the patient may be a candidate for radiofrequency lesioning. The patient agrees to continue currently prescribed/recommended therapies.[facility]imaComment on above: Result Comment: Electronically Signed By: Dominic Guzman DO\.br\Date and Time Signed: 01/11/25 08:50 [id number] NoteConsultation Note Patient: BERNARDO JIMENEZ Age: 59 years Sex: Male : 1965 Associated Diagnoses: None Author: Nahomy Gardiner PA-C Subjective Chief complaint 12/24/2024 13:46 EDT back pain . Patient is a 59-year-old male. He presents today for follow-up after undergoing a right sided medial branch block covering the L4-S1 facet joints. This was done on 12/20/2024 and gave him 80% relief until about the 8-hour gail. At that time, his pain was significantly improved and was down to a 1/10. Unfortunately, after the 8-hour gail his pain then returned and went back up to an 8/10. Worse with standing, worse with being upright, worse with being active. It affects his ambulatory status. Affects his quality life. Affects his activities. For some buttock pain he previously underwent a right sided sacroiliac joint injection. This was done on 11/23/2024 and has completely resolved his buttock and groin pain. This is still better. Prior to that he underwent L5-S1 transforaminal epidural steroid injection. This was done on 11/04/2024 andhas given him 100% relief of his radiating leg pain. Still better as well. Unfortunate, he still having back pain. Worse with standing, worse with being upright, worse with being active. Better with lidocaine patches and sitting. He has done therapy that has not helped. He has taken ibuprofen with some relief and not enough. He feels that the recent injection gave him significant relief and he would like to get this long-term. Health Status Allergies: Allergic Reactions (Selected) Severity Not Documented Sulfa drugs- Rash., Allergies (1) Active Severity Reaction sulfa drugs Rash Current medications: (Selected) Documented Medications Documented Backaid IPF oral tablet: 2 tab(s), Oral, q6hr Pain, Refill(s) 0 Descovy 200 mg-25 mg oral tablet: 1 tab(s), Oral, Daily, Refill(s) 0, for HIV Tivicay 50 mg oral tablet: 50 mg = 1 tab(s), Oral, Daily, for HIV, Refills(s) 0 Tylenol Extra Strength 500 mg oral tablet: 1,000 mg = 2 tab(s), Oral, BID, PRN as needed for pain, Refills(s) 0 atorvastatin 20 mg Tab: 20 mg = 1 tab(s), Oral, Daily, Refills(s) 0 hydrochlorothiazide: 25 mg, Oral, Daily, Refills(s) 0, High blood pressure ibuprofen 200 mg oral capsule: 400 mg = 2 cap(s), Oral, BID, PRN as needed for pain, Refills(s) 0 lisinopril: 40 mg, Oral, Daily, Refills(s) 0, High blood pressure Problem list: All Problems Hypertension / SNOMED CT 4553658239 / Confirmed Acid reflux / SNOMED CT 833749009 / Confirmed HIV (human immunodeficiency virus infection) / SNOMED CT 818623093 / Confirmed Hypercholesteremia / SNOMED CT 58494748 / Confirmed Objective Vital Signs 12/24/2024 13:46 EDT Peripheral Pulse Rate 93 bpm Respiratory Rate 16 br/min Systolic Blood Pressure 128 mmHg Diastolic Blood Pressure 91 mmHg HI Mean Arterial Pressure, Cuff 103 mmHg General: Alert and oriented, No acute distress. Eye: Normal conjunctiva. HENT: Normocephalic, Normal hearing. Cardiovascular: No edema. Musculoskeletal Normal range of motion. Normal strength. 5/5 lower extremity strength Pain with compression of the right sided lumbar facet joints Increased right sided lower back pain with facet loading Integumentary: Warm, Dry, [place]. Neurologic: Alert, Oriented. Psychiatric: Cooperative, Appropriate mood & affect. 14 point review of systems was negative unless otherwise noted. Impression and Plan Patient is a 59-year-old male with a past medical history significant for lumbar neuritis, chronic lower back pain and lumbar spondylosis. His leg pain is still well improved from the previous epidural. He underwent recent right sided medial branch block covering the L4-S1 facet joints on 12/20/2024at gave him significant relief. The first 8 hours gave him 80% relief if not more. He was better able to do things. His quality of life was improved. His activities were improved. Unfortunate, after the 8-hour gail his pain then returned. At this time, based on his imaging findings, his failure to improve with conservative treatments and the significant response he got from the injection I recommended pursuing his second right sided medial branch block once again covering the L4- S1 facet joints. This to be done under fluoroscopy for diagnostic purposes. If he gets significant short-lived relief he would then be a future can for RFA. Procedure was discussed. Risks and benefits were discussed. Patient is agreeable. He will follow-up 1 week after the injection for reevaluation. Call clinicsooner if necessary GIULIANA score: 18%.[facility]imaComment on above:Result Comment: Electronically Signed By: Nahomy Gardiner PA-C\.br\Date and Time Signed: 12/24/24 14:00 [id number] Evaluation + Plan noteExtracted from:Title:Pain Managment Follow upAuthor:Nahomy Gardiner PA-CDate:12/24/24 Impression and Plan Patient is a 59-year-old male with a past medical history significant for lumbar neuritis, chronic lower back pain and lumbar spondylosis. His leg pain is still well improved from the previous epidural. He underwent recent right sided medial branch block covering the L4-S1 facet joints on 12/20/2024at gave him significant relief. The first 8 hours gave him 80% relief if not more. He was better able to do things. His quality of life was improved. His activities were improved. Unfortunate, after the 8-hour gail his pain then returned. At this time, based on his imaging findings, his failure to improve with conservative treatments and the significant response he got from the injection I recommended pursuing his second right sided medial branch block once again covering the L4- S1 facet joints. This to be done under fluoroscopy for diagnostic purposes. If he gets significant short-lived relief he would then be a future can for RFA. Procedure was discussed. Risks and benefits were discussed. Patient is agreeable. He will follow-up 1 week after the injection for reevaluation. Call clinicsooner if necessary GIULIANA score: 18%.[facility] 03-10-2025 Evaluation + Plan noteExtracted from:Title: Right lumbar medial branch block target L4/5 and L5/S1 facets #1Author:Dominic Guzman DODate:12/20/24 Diagnosis: m47.816, lumbar s pondyloarthropathy Procedure: Right diagnostic lumbar medial branch blocks under fluoroscopic guidance, targeting the L4/5 and L5/S1 facet joints Anesthesia: Local Complications: none After informed consent was obtained, the patient was brought to the procedure room and placed in the prone position. The back area is prepped and draped in usual sterile fashion. Using fluoroscopic guidance skin and subcutaneous tissue overlying needle trajectories to the target sites were anesthetized with 2% lidocaine. 22-gauge needles were advanced under fluoroscopic guidance to the appropriate anatomic landmarks. Needle tip position was confirmed using fluoroscopy in at least 2 views. Injection of small amount of contrast through each needle tip revealed appropriate spread without vascular take. Subsequently, 0.5 mL of 0.5% bupivacaine was injected at each needle tip. The needles were re moved. The patient was then transferred to the recovery room in stable condition. Follow-up: Should the patient have pain relief, the patient may be a candidate for radiofrequency lesioning. The patient agrees to continue currently prescribed/recommended therapies. Future Appointments Appointment Date:12/24/2024 02:15:00 PM Scheduled Provider:Nahomy Gardiner PA-C Location:[facility] Appointment Type:Pain Management - Follow Up (FT) [facility] [id number] NoteOperative Report Diagnosis: m47.816, lumbar spondyloarthropathy Procedure: Right diagnostic lumbar medial branch blocks under fluoroscopic guidance, targeting the L4/5 and L5/S1 facet joints Anesthesia: Local Complications: none After informed consent was obtained, the patient was brought to the procedure room and placed in the prone position. The back area is prepped and draped in usual sterile fashion. Using fluoroscopic guidance skin and subcutaneous tissue overlying needle trajectories to the target sites were anesthetized with 2% lidocaine. 22-gauge needles were advanced under fluoroscopic guidance to the appropriate anatomic landmarks. Needle tip position was confirmed using fluoroscopy in at least 2 views. Injection of small amount of contrast through each needle tip revealed appropriate spread without vascular take. Subsequently, 0.5 mL of 0.5% bupivacaine was injected at each needle tip. The needles were re moved. The patient was then transferred to the recovery room in stable condition. Follow-up: Should the patient have pain relief, the patient may be a candidate for radiofrequency lesioning. The patient agrees to continue currently prescribed/recommended therapies.[facility] on [facility]: Result Comment: Electronically Signed By: Dominic Guzman DO.br\Date and Time Signed: 12/20/24 12:20 [id number] Evaluation + Plan noteExtracted from: Title:Pain Managment Follow upAuthor:Zuleyka REEVES, AmandaDate:12/08/24 Impression and Plan Patient is a 59-year-old male with a past medical history significant for chronic lower back pain, sacroiliitis improved from previous sacroiliac joint injection, lumbar neuritis improved from previous transforaminal epidural steroid injection, and lumbar spondylosis. At this time, he still has a lot of right sided lower back pain worse with standing, worse with being upright, worse with being active. Worse with doing certain things. At this time, his right sided lower back pain affects his quality of life and his activities. Affects his ability to do things he wants to do. We reviewed his MRI. Based on his MRI findings, his pain pattern, his failure to improve with conservative treatments and that on physical examination his pain appears to be related to his facet joints I recommended right sided medial branch block covering the L4-S1 facet joints. This to be done under fluoroscopy fordiagnostic purposes. If he gets significant short-lived relief may be a future can for RFA. Procedure was discussed. Risks and benefits were discussed. Patient is agreeable. He will follow-up 1 week after the injection for reevaluation. Call clinic sooner if necessary. GIULIANA score: 16%.[facility] 02-26-2025 NoteConsultation Note Patient: BERNARDO JIMENEZ Age: 59 years Sex: Male : 1965 Associated Diagnoses: None Author: Nahomy Gardiner PA-C Subjective Chief complaint 12/08/2024 8:37 EST Lower back . Patient is a 59-year-old male. He presents today for follow-up after undergoing a right sided Sacroiliac joint injection. This was done on 11/23/2024 and has completely resolved his buttock and groin pain. Prior to that he underwent L5-S1 transforaminal epidural steroid injection. This was done on 11/04/2024 and has given him 100% relief of his radiating leg pain. Unfortunate, he still having back pain. Worse with standing, worse with being upright, worse with being active. It is worse if he is at work and up and active and moving. Better with lidocaine patches and sitting. He has done therapy that has not helped. He has taken ibuprofen with some relief and not enough. He wonders what he can do for the back pain as he states that this is still his rate limiting factor and affecting his ability to do things he wants to do. Health Status Allergies: Allergic Reactions (Selected) Severity Not Documented Sulfonamides- Rash., Allergies (1) Active Severity Reaction sulfonamides Rash Current medications: (Selected) Documented Medications Documented Backaid IPF oral tablet: 2 tab(s), Oral, q6hr Pain, Refill(s) 0 Descovy 200 mg-25 mg oral tablet: 1 tab(s), Oral, Daily, Refill(s) 0, for HIV Tivicay 50 mg oral tablet: 50 mg = 1 tab(s), Oral, Daily, for HIV, Refills(s) 0 Tylenol Extra Strength 500 mg oral tablet: 1,000 mg = 2 tab(s), Oral, BID, PRN as needed for pain, Refills(s) 0 atorvastatin 20 mg Tab: 20 mg = 1 tab(s), Oral, Daily, Refills(s) 0 hydrochlorothiazide: 25 mg, Oral, Daily, Refills(s) 0, High blood pressure ibuprofen 200 mg oral capsule: 400 mg = 2 cap(s), Oral, BID, PRN as needed for pain, Refills(s) 0 lisinopril: 40 mg, Oral, Daily, Refills(s) 0, High blood pressure Problem list: All Problems Hypertension / SNOMED CT 1238002293 / Confirmed Acid reflux / SNOMED CT 221302698 / Confirmed HIV (human immunodeficiency virus infection) / SNOMED CT 613380895 / Confirmed Hypercholesteremia / SNOMED CT 85797923 / Confirmed Objective Vital Signs 12/08/2024 8:37 EST Peripheral Pulse Rate 82 bpm Respiratory Rate 18 br/min Systolic Blood Pressure 147 mmHg HI Diastolic Blood Pressure 94 mmHg HI Mean Arterial Pressure, Cuff 112 mmHg General: Alert and oriented, No acute distress. Eye: Normal conjunctiva. HENT: Normocephalic, Normal hearing. Cardiovascular: No edema. Musculoskeletal Normal range of motion. Normal strength. 5/5 strength other than right hip flexion 4+ to 5 -/5 Pain with compression of the right sided lumbar facet Increased right-sided lower back pain with facet loading Integumentary: Warm, Dry, [place]. Neurologic: Alert, Oriented. Psychiatric: Cooperative, Appropriate mood & affect. 14 point review of systems was negative unless otherwise noted. Results Review Lumbar MRI. Report reviewed. L4-5 mild foraminal stenosis. L5-S1 moderate foraminal stenosis. Rightgreater than left. Facet degenerative changes noted at L4-5 and L5-S1 Impression and Plan Patient is a 59-year-old male with a past medical history significant for chronic lower back pain, sacroiliitis???improved from previous sacroiliac joint injection, lumbar neuritis???improved from previous transforaminal epidural steroid injection, and lumbar spondylosis. At this time, he still hasa lot of right sided lower back pain worse with standing, worse with being upright, worse with being active. Worse with doing certain things. At this time, his right sided lower back pain affects hisquality of life and his activities. Affects his ability to do things he wants to do. We reviewed his MRI. Based on his MRI findings, his pain pattern, his failure to improve with conservative treatments and that on physical examination his pain appears to be related to his facet joints I recommended right sided medial branch block covering the L4-S1 facet joints. This to be done under fluoroscopyfor diagnostic purposes. If he gets significant short-lived relief may be a future can for RFA. Procedure was discussed. Risks and benefits were discussed. Patient is agreeable. He will follow-up 1 week after the injection for reevaluation. Call clinic sooner if necessary. GIULIANA score: 16%.[facility]imaComment on above:Result Comment: Electronically Signed By: Nahomy Gardiner PA-C\.br\Date and Time Signed: 12/08/24 08:54 [id number] Evaluation + Plan noteExtracted from:Title:Right sacroiliac joint injectionAuthor:Dominic Guzman DODate:11/23/24 Diagnosis: M46.1, sacroiliit is Procedure: Right diagnostic and therapeutic sacroiliac Joint injection under fluoroscopic guidance Anesthesia: Local Complications: none After informed consent was obtained, the patient was brought back to the procedure room and placed in the prone position. Back areas prepped and draped in the usual sterile fashion using fluoroscopicguidance, the skin and subcutaneous tissues overlying the needle trajectory over the lower aspect of sacroiliac joint were anesthetized with 2% lidocaine. The 22-gauge Quincke needles were then introduced in the lower aspect of the sacroiliac joint. Injection of contrast under fluoroscopy revealed appropriate intra-articular spread with confirmation in at least 2 views. Thereafter, 2 mL of 0.5% bu pivacaine with 40 mg of methylprednisolone was injected into the sacroiliac joint. The needle was then removed. The patient tolerated procedure well. Patient was then transferred to the recovery roomin stable condition. Follow-up: The patient will update us on the response to this procedure, and agrees to continue currently prescribed/recommended therapies. Future Appointments Appointment Date:12/08/2024 08:15:00 AM Scheduled Provider:Nahomy Gardiner PA-C Location:[facility] Appointment Type:Pain Management - Follow Up (FT) [facility] [id number] NoteOperative Report Diagnosis: M46.1, sacroiliitis Procedure: Right diagnostic and therapeutic sacroiliac Joint injection under fluoroscopic guidance Anesthesia: Local Complications: none After informed consent was obtained, the patient was brought back to the procedure room and placed in the prone position. Back areas prepped and draped in the usual sterile fashion using fluoroscopicguidance, the skin and subcutaneous tissues overlying the needle trajectory over the lower aspect of sacroiliac joint were anesthetized with 2% lidocaine. The 22-gauge [place] needles were then introduced in the lower aspect of the sacroiliac joint. Injection of contrast under fluoroscopy revealed appropriate intra-articular spread with confirmation in at least 2 views. Thereafter, 2 mL of 0.5% bu pivacaine with 40 mg of methylprednisolone was injected into the sacroiliac joint. The needle was then removed. The patient tolerated procedure well. Patient was then transferred to the recovery roomin stable condition. Follow-up: The patient will update us on the response to this procedure, and agrees to continue currently prescribed/recommended therapies.[facility] Comment on above:Result Comment: Electronically Signed By: Dominic Guzman DO\.br\Date and Time Signed: 11/23/24 11:20 [id number] Evaluation + Plan note Extracted from:Title:Pain Managment Follow upAuthor:Zuleyka REEVES, AmandaDate: 11/19/24 Impression and Plan Patient is a 59-year-old male with a past medical history significant for lumbar stenosis, lumbar neuritis, lumbar degenerative disc disease and sacroiliitis. Patient underwent recent right sided L5-S1 transforaminal epidural steroid injection with 100% relief of his radiating leg pain but unfortunately, he is still having buttock pain. This affects his ambulatory status. This affects his qualitylife. This affects his activities and affects his ability to do things he wants to do. At this time, on physical examination it appears to be related to his sacroiliac joint. He is previously trialedand failed all other reasonable conservative treatments and at this time, I would recommend pursuing a right sided sacroiliac joint injection to be done under fluoroscopy for both diagnostic and therapeutic purposes. Procedure was discussed. Risks and benefits were discussed. Patient is agreeable. Patient will follow-up 2 weeks after the injection for reevaluation. Clinic sooner if necessary. GIULIANA score: 20%.[facility] 02-07-2025 NoteConsultation Note Patient: BERNARDO JIMENEZ Age: 59 years Sex: Male : 1965 Associated Diagnoses: None Author: Nahomy Gardiner PA-C Subjective Chief complaint 11/19/2024 8:49 EST Back Pain . Patient is a 59-year-old male. He presents today for follow-up after undergoing a right sided L5-B5dclzpjqtgyvbiu epidural steroid injection. This was done on 11/04/2024 and has given him 100% reliefof his radiating leg pain but unfortunate, is still having some right sided buttock pain with intermittent groin pain. This affects his ambulatory status. This affects his quality life. This affects his activities and his ability to be upright and active especially while at work. The more activity he does the worst this buttock pain gets. He rates it a 4???9/10. He has done therapy that has not helped. He has taken ibuprofen with some relief and not enough. He is happy with the relief he got from the injection and that his leg pain is better but unfortunate, wonders what his buttock pain now as this is affecting his ability to do the things he wants to do. Health Status Allergies: Allergic Reactions (Selected) Severity Not Documented Sulfonamides- Rash., Allergies (1) Active Severity Reaction sulfonamides Rash Current medications: (Selected) Documented Medications Documented Backaid IPF oral tablet: 2 tab(s), Oral, q6hr Pain, Refill(s) 0 Descovy 200 mg-25 mg oral tablet: 1 tab(s), Oral, Daily, Refill(s) 0, for HIV Tivicay 50 mg oral tablet: 50 mg = 1 tab(s), Oral, Daily, for HIV, Refills(s) 0 Tylenol Extra Strength 500 mg oral tablet: 1,000 mg = 2 tab(s), Oral, BID, PRN as needed for pain, Refills(s) 0 atorvastatin 20 mg Tab: 20 mg = 1 tab(s), Oral, Daily, Refills(s) 0 hydrochlorothiazide: 25 mg, Oral, Daily, Refills(s) 0, High blood pressure ibuprofen 200 mg oral capsule: 400 mg = 2 cap(s), Oral, BID, PRN as needed for pain, Refills(s) 0 lisinopril: 40 mg, Oral, Daily, Refills(s) 0, High blood pressure Problem list: All Problems Hypertension / SNOMED CT 9976309088 / Confirmed Acid reflux / SNOMED CT 821941012 / Confirmed HIV (human immunodeficiency virus infection) / SNOMED CT 716510652 / Confirmed Hypercholesteremia / SNOMED CT 69778175 / Confirmed Objective Vital Signs 11/19/2024 8:49 EST Peripheral Pulse Rate 100 bpm Respiratory Rate 18 br/min Systolic Blood Pressure 120 mmHg Diastolic Blood Pressure 81 mmHg Mean Arterial Pressure, Cuff 94 mmHg General: Alert and oriented, No acute distress. Eye: Normal conjunctiva. HENT: Normocephalic, Normal hearing. Cardiovascular: No edema. Musculoskeletal Normal range of motion. Normal strength. Pain with compression of the right sided sacroiliac joint Positive Pranav test on the right Positive thigh thrust on the right Positive Gaenslen's test on the right Integumentary: Warm, Dry, [place]. Neurologic: Alert, Oriented. Psychiatric: Cooperative, Appropriate mood & affect. 14 point review of systems was negative unless otherwise noted. Results Review Lumbar MRI. Report reviewed. L4-5 mild foraminal stenosis. L5-S1 moderate foraminal stenosis. Rightgreater than left. Impression and Plan Patient is a 59-year-old male with a past medical history significant for lumbar stenosis, lumbar neuritis, lumbar degenerative disc disease and sacroiliitis. Patient underwent recent right sided L5-S1 transforaminal epidural steroid injection with 100% relief of his radiating leg pain but unfortunately, he is still having buttock pain. This affects his ambulatory status. This affects his qualitylife. This affects his activities and affects his ability to do things he wants to do. At this time, on physical examination it appears to be related to his sacroiliac joint. He is previously trialedand failed all other reasonable conservative treatments and at this time, I would recommend pursuing a right sided sacroiliac joint injection to be done under fluoroscopy for both diagnostic and therapeutic purposes. Procedure was discussed. Risks and benefits were discussed. Patient is agreeable. Patient will follow-up 2 weeks after the injection for reevaluation. Clinic sooner if necessary. GIULIANA score: 20%.[facility]Comment on above:Result Comment: Electronically Signed By: Nahomy Gardiner PA-C\.br\Date and Time Signed: 11/19/24 09:14 [id number] Evaluation + Plan noteExtracted from:Title:Right L5/S1 transforaminal epidural steroid injectionAuthor:Dominic Guzman DODate: 11/04/24 Diagnosis: m54.16, lumbar ra diculopathy Procedure: Right L5/S1 lumbar transforaminal epidural steroid injection under fluoroscopic guidance Anesthesia: Local Complications: none After informed consent was obtained, the patient was brought to the procedure suite placed in the prone position. Pulse oximetry and blood pressure were monitored throughout. The low back area is prepped and draped in usual sterile fashion. Using fluoroscopic guidance, skin and subcutaneous tissue overlying the trajectory of the neuroforamina were anesthetized with 2% lidocaine. A 22-gauge Sprotte needles were then advanced under fluoroscopic guidance to the appropriate foramina. Needle tip positions were confirmed under at least 2 fluoroscopic views. Injection of contrast revealed appropriate spread of the dye without vascular uptake. Next, 2 mL of 1.0% lidocaine with 10 mg of dexamethasone was injected through the needle tip. The needle was then removed and the patient was then transferred to the recovery room in stable condition. The pain tolerated the procedure well. There were no apparent complications. Follow-up: The patient will update us on the response to this procedure, and agrees to comply to currently prescribed/recommended therapies. Future Appointments Appointment Date:11/19/2024 08:45:00 AM Scheduled Provider:Nahomy Gardiner PA-C Location[facility] Appointment Type:Pain Management - Follow Up (FT) [facility] 01-23-2025 NoteOperative Report Diagnosis: m54.16, lumbar radiculopathy Procedure: Right L5/S1 lumbar transforaminal epidural steroid injection under fluoroscopic guidance Anesthesia: Local Complications: none After informed consent was obtained, the patient was brought to the procedure suite placed in the prone position. Pulse oximetry and blood pressure were monitored throughout. The low back area is prepped and draped in usual sterile fashion. Using fluoroscopic guidance, skin and subcutaneous tissue overlying the trajectory of the neuroforamina were anesthetized with 2% lidocaine. A 22-gauge Sprotte needles were then advanced under fluoroscopic guidance to the appropriate foramina. Needle tip positions were confirmed under at least 2 fluoroscopic views. Injection of contrast revealed appropriate spread of the dye without vascular uptake. Next, 2 mL of 1.0% lidocaine with 10 mg of dexamethasone was injected through the needle tip. The needle was then removed and the patient was then transferred to the recovery room in stable condition. The pain tolerated the procedure well. There were no apparent complications. Follow-up: The patient will update us on the response to this procedure, and agrees to comply to currently prescribed/recommended therapies.[facility] Comment on above:Result Comment: Electronically Signed By: Dominic Guzman DO.grzegorz\Date and Time Signed: 11/04/24 10:16 [id number] Evaluation + Plan note Extracted from:Title:Pain Managment H&P new patientAuthor:Nahomy Gardiner PA-C Date:10/20/24 Impression and Plan Patient is a 59-year-old male with a past medical history significant lumbar degenerative disc disease, lumbar foraminal stenosis and lumbar neuritis. Patient at time has lower back pain with right radiating leg pain and right leg giveaway and weakness. This affects his ambulatory status. This affects his quality life. This affects his activities and affects his ability to do things he wants to. At this time, we reviewed his MRI. We discussed different options. Questions and concerns were answered and discussed at length. I would recommend he discontinue the gabapentin as makes him tired and trial Lyrica. 50 mg twice daily. OARRS was reviewed. Potential side effects were discussed. Based onhis weakness and his failure to get relief with the conservative treatment that he has pursued I would also recommend a right sided L5-S1 transforaminal epidurals or injection to be done under fluoroscopy for both diagnostic and therapeutic purposes. Procedure was discussed. Risks and benefits werediscussed. Patient is agreeable. He will follow-up 2 weeks after the injection for reevaluation. Call clinic sooner if necessary. GIULIANA score 34%.[facility] [id number] NoteConsultation Note Patient: BERNARDO JIMENEZ Age: 59 years Sex: Male : 1965 Associated Diagnoses: None Author: Nahomy Gardiner PA-C Basic Information Accompanied by: No one. Source of history: Self. History limitation: None. Chief Complaint 10/20/2024 11:05 EST lower back pain R>L into right leg. History of Present Illness Patient is a 59-year-old male. He presents today as new patient with complaints of lower back pain with right radiating leg pain as well as a throbbing type sensation that was down his right leg and right leg weakness. Patient states that the longer he is up and active the worst the right leg pain gets and then his leg gives way. He has been having this leg pain for the last 5 months without any incident or trauma. He has had lower back pain for a while. He works in a factory. He has to do a lot of standing, bending, being upright and active. He feels that this all led to the discomfort that he experiences but unfortunate, lately it has not gotten any better. He has failed conservative treatments. He has taken vphz-fet-qpcyjys medication without any long-term relief but he is only able totake certain ones because he does have HIV. He sees an infectious disease doctor at [place]. He states that he has had this for many years and his viral load is essentially undetectable. He was recently on gabapentin by his infectious disease doctor but it makes him very tired. He takes 3 to milligrams at bedtime. He gets some and he is not able to tolerate any higher dose. He rates his discomfort a 7???9/10 on the visual analog scale. Review of Systems Constitutional: No fever, No chills. Eye: No recent visual problem. Ear/Nose/Mouth/Throat: No decreased hearing. Respiratory: No shortness of breath, No cough. Cardiovascular: No chest pain. Gastrointestinal: No nausea, No vomiting. Genitourinary: No dysuria, No hematuria. Hematology/Lymphatics: No bruising tendency, No bleeding tendency. Immunologic: Immunocompromised. Musculoskeletal: Back pain, Muscle pain, Claudication. Integumentary: No rash, No pruritus. Neurologic: Alert and oriented X4, Numbness, Tingling. Psychiatric: No anxiety, No depression. Health Status Allergies: Allergic Reactions (Selected) Severity Not Documented Sulfonamides- Rash. Current medications: No qualifying data available Problem list: No problem items selected or recorded. Histories Past Medical History: No active or resolved past medical history items have been selected or recorded. Family History: Primary malignant neoplasm of colon Father Mother Diabetes mellitus type 1 Mother Procedure history: Colonoscopy, flexible; with removal of tumor(s), polyp(s), or other lesion(s) by snare technique (CPT4 97939) performed by Narciso THOMAS MD on 07/12/2020 at 55 Years. Colonoscopy (SNOMED CT [id number]). Social History Social & Psychosocial Habits Alcohol 10/20/2024 Risk Assessment: Low Risk Substance Abuse 10/20/2024 Risk Assessment: Denies Substance Abuse Tobacco 10/20/2024 Tobacco Use: Never (less than 100 in l . Physical Examination Vital Signs (last 24 hrs) Last Charted Heart Rate Peripheral 100 bpm (OCT 20:) SBP 128 mmHg (OCT 20:) DBP H 90 mmHg (OCT 20:) Weight 112.1 kg (OCT 20:) BMI 33.11 (OCT 20:) General: Alert and oriented, No acute distress. HENT: Normocephalic, Normal hearing. Respiratory: Respirations are non-labored. Cardiovascular: No edema. Musculoskeletal Normal range of motion. Normal strength. 5/5 strength other than right ADF and EHL 4/5 with positive right straight leg raise. Neurologic: Alert, Oriented. Cognition and Speech: Oriented, Speech clear and coherent. Psychiatric: Cooperative, Appropriate mood & affect. Integumentary: Warm, Dry, [place]. Review / Management Results review: No qualifying data available . Lumbar MRI. Report reviewed. L4-5 mild foraminal stenosis. L5-S1 moderate foraminal stenosis. Rightgreater than left. Impression and Plan Patient is a 59-year-old male with a past medical history significant lumbar degenerative disc disease, lumbar foraminal stenosis and lumbar neuritis. Patient at time has lower back pain with right radiating leg pain and right leg giveaway and weakness. This affects his ambulatory status. This affects his quality life. This affects his activities and affects his ability to do things he wants to. At this time, we reviewed his MRI. We discussed different options. Questions and concerns were answered and discussed at length. I would recommend he discontinue the gabapentin as makes him tired and trial Lyrica. 50 mg twice daily. OARRS was reviewed. Potential side effects were discussed. Based onhis weakness and his failure to get relief with the conservative treatment that he has pursued I would also recommend a right sided L5-S1 transforaminal epidurals or injection to (more content not included)...[facility]imaComment on above:Result Comment: Electronically Signed By: Zuleyka REEVES, Nahomy\.br\Date and Time Signed: 10/20/24 11:53 [id number] History of Present illness Narrative* YARED Andrews - 09/24/2024 1:30 PM EST Images from the original note were not included. Subjective Patient ID: Bernardo Jimenez is a 59 y.o. male. Chief Complaint: Pain of the Lower Back Last Surgery: No surgery found Last Surgery Date: No surgery found HPI Bernardo comes in to go over his MRI he does have significant L4-5 and L5-S1 facet hypertrophy causing neural foraminal stenosis right greater than left also associated with disc bulging at these levels. Objective Ortho Exam Still having pain in the right gluteal and down the lateral thigh sciatic in nature with straight leg raise maintains good internal external rotation of his hips. Image Results: MR lumbar spine wo contrast Narrative: EXAMINATION/TECHNIQUE: MR LUMBAR SPINE WO CONTRAST HISTORY: Low back pain. Right and left leg numbness. Right knee pain. COMPARISON: Radiographs 09/13/2024. RESULT: Counting reference: Lumbosacral junction. For the purposes of this report, L5-S1 is considered the last well-formed disc space. 5 lumbar type vertebral bodies. Alignment: Alignment is anatomic. Bone marrow signal: No evidence for recent fracture. No pathologic marrow infiltration. Endplate degenerative signal at L4-L5 and L5-S1. Disc height loss at L4-L5 and L5-S1. Conus: Normal signal and morphology. Paraspinal soft tissues: Small T2 hypointense renal lesions bilaterally, probably representing hemorrhagic or proteinaceous cysts. Otherwise grossly unremarkable. Lower thoracic spine: Visualized lower thoracic canal and foramina without significant narrowing. T12-L1: No significant canal or foraminal narrowing. L1-L2: No significant canal or foraminal narrowing. L2-L3: No significant canal or foraminal narrowing. L3-L4: No significant canal or foraminal narrowing. L4-L5: Broad-based disc bulge. Endplate osteophytes. Facet degenerative changes. Mild bilateral foraminal narrowing without significant canal narrowing. L5-S1: Broad-based disc bulge. Endplate osteophytes. Facet degenerative changes. Moderate bilateralforaminal narrowing without significant canal narrowing. Sacrum and iliac wings: The visualized sacrum and iliac wings are unremarkable. Impression: Degenerative changes lumbar spine as discussed. ELECTRONICALLY SIGNED BY: Mehul Thompson MD Assessment/Plan Encounter Diagnoses: Right-sided low back pain with right-sided sciatica, unspecified chronicity Lumbosacral radiculopathy due to osteoarthritis of spine No orders of the defined types were placed in this encounter. Follow up if symptoms worsen or fail to improve. Continue light flexibility and stretching exercises well as use of cold pack. We will set you up see Dr. Guzman regarding pain management options. If he is unable to help you then he would refer you to spine surgery. Avoid any heavy lifting bending or stooping as thisMay aggravate the nerves affected from your neural foraminal stenosis and facet hypertrophy. Tylenol for breakthrough discomfort. documented in this [facility]12-13-2024 Instructions* Patient Instructions* YARED Andrews - 09/24/2024 1:30 PM EST Continue light flexibility and stretching exercises well as use of cold pack. We will set you up see Dr. Guzman regarding pain management options. If he is unable to help you then he would refer you to spine surgery. Avoid any heavy lifting bending or stooping as thisMay aggravate the nerves affected from your neural foraminal stenosis and facet hypertrophy. Tylenol for breakthrough discomfort. documented in this [facility]12-10-2024 Not[place] reached out to Tootie Farias regarding dental treatment plan. Patient reported during appointment on 09/07/2024, [facility] started work / treatment plan for patient and his dental work, however work has yet to be completed. Email response from Americo Sommers, I have not received a Prior Auth for Bernardo Jimenez???s dental care. I will forward this to Mariela for more information. Thanks, Tootie [facility]12-02-2024 History of Present illness Narrative* YARED Andrews - 09/13/2024 2:30 PM EST GENERAL HISTORY AND PHYSICAL: NAME: Bernardo Jimenez : 1965 HISTORY OF PRESENT ILLNESS: Bernardo Jimenez is an 59 y.o. male is here for orthopedic evaluation of his lower back pain and associated radiculopathy which seems to be right greater than left today. He did get some improvement with the prednisone he does seem to have more difficulty with his lower back and sciatic pain versus his meniscal symptoms from his knee. Patient would like to pursue MRI. PAST MEDICAL HISTORY: Past Medical History: Diagnosis Date Hypertension (CMS/HCC) PAST SURGICAL HISTORY: History reviewed. No pertinent surgical history. SOCIAL HISTORY: Social History Occupational History Not on file Tobacco Use Smoking status: Never Smokeless tobacco: Never Vaping Use Vaping status: Never Used Substance and Sexual Activity Alcohol use: Yes Drug use: Never Sexual activity: Defer ALLERGIES: Allergies Allergen Reactions Sulfa Antibiotics Unknown MEDICATIONS: Current Outpatient Medications Medication Instructions atorvastatin (Lipitor) 20 MG tablet 1 tablet, Daily Descovy 200-25 MG tablet 1 tablet, Daily gabapentin (NEURONTIN) 300 mg, 2 times daily hydroCHLOROthiazide (HYDRODiuril) 25 MG tablet 1 tablet, Daily lisinopril 40 MG tablet 1 tablet, Daily metoprolol succinate XL (Toprol-XL) 50 MG 24 hr tablet 1 tablet, Daily Tivicay 50 MG tablet 1 tablet, Daily REVIEW OF SYSTEMS: Review of Systems General: Denies appetite or significant weight change. Denies fever, chills or night sweats. Denies lightheadedness. ENT: Denies dry mouth, sore throat or swollen glands. Denies difficulty swallowing. Denies ear pain. Respiratory: Denies chest pain, SOB, cough or wheezing. Denies asthma or pneumonia symptoms. Cardiovascular: Denies CP or palpitations. No syncope or dyspnea on exertion. Gastrointestinal: Denies nausea or vomiting. Denies heartburn or abdominal pain. Denies diarrhea. Genitourinary: Denies frequent or painful urination. Musculoskeletal: See HPI for comments. Integumentary: Denies rash, lesion or skin infection. Neurologic: Denies dizziness, headache or seizure history. Vitals: Body mass index is 34.87 kg/m . PHYSICAL EXAM: Physical Exam Exam of the right knee patient has questionable effusion with no erythema or fever of the joint he has full extension and flexion of 115 degrees. No associated pain with Roberta's on direct palpation of medial and lateral meniscus he does have more positive straight leg raise associated with lateral calf pain that radiates from the right Gluteal region with straight leg raise. Patient is having more persistent paresthesia in the left foot particularly 2nd and 3rd toes he states it feels like his toes across but when he looks at him the appear normal he does seem to have some weakness with extensor mechanism of the great toe of the left foot. No evidence of significant footdrop with ambulation. Deep tendon reflexes are 2 to 3/4 bilaterally patellar and Achilles. He does seem to demonstrate some quad weakness with hip flexion left sided. XR lumbar spine complete 4+ views Imaging Result: AP lateral and obliques of the lumbar spine with coned-down demonstrating significant degenerative disc disease of the lower L4-5 L5-S1 with facet hypertrophy and neural foraminal encroachment no evidence of bony tumor acute fracture seen Orders Placed This Encounter Procedures XR lumbar spine complete 4+ views Order Specific Question: Reason for exam: Answer: pain XR lumbar spine complete 4+ views Imaging Result: AP lateral and obliques of the lumbar spine with coned-down demonstrating significant degenerative disc disease of the lower L4-5 L5-S1 with facet hypertrophy and neural foraminal encroachment no evidence of bony tumor acute fracture seen ASSESSMENT: Low back pain, unspecified back pain laterality, unspecified chronicity, unspecified whether sciatica present PLAN: We will pursue MRI and follow-up with results in the next couple weeks. Continue anti-inflammatory and low back flexibility stretching exercises twice daily. Cold pack to the lower back and gluteal regions. Avoid any forceful lifting bending activity that may cause increased pain in the lower back. YARED Andrews documented in this encounterSaint [facility] [id number] Instructions* Patient Instructions* YARED Andrews - 09/13/2024 2:30 PM EST We will pursue MRI and follow-up with results in the next couple weeks. Continue anti-inflammatory and low back flexibility stretching exercises twice daily. Cold pack to the lower back and gluteal regions. Avoid any forceful lifting bending activity that may cause increased pain in the lower back. documented in this encounterSaint [facility]'s [facility]ree[facility] [id number] NoteBP stable Encouraged weight loss, [facility] NoteMedication adherence counselling was provided, including using reminders HIV transmission reviewed Counseled on safe sex, using condoms, U=U, the risk of increasing incidence of STDs including syphilis Continue Biktarvy Continue to follow up longitudinallyTr[facility] 09-07-2024 NoteSubjective Patient ID: Bernardo Jimenez is a 59 y.o. male who presents for Medication Visit, HIV Positive/AIDS, Health Maintenance, Hip Pain (Left hip, left knee and lower back discomfort), and Flu Vaccine. Developed significant pain in R hip, R knee and lower back with sciatica, radiating on back of leg but also episodes of losing sensation and control of his R leg while standing. Was seen by orthopedics and was given a medrol terrecne ; he has not seen improvement Imaging of R knee was done, and a follow up was given, at which time there seems to be a plan to discuss further more advanced imaging both of R knee and lower back Had labs this morning and he is in office today with his male partner. WBC today up to 13 due to steroids Creatinine up to 1.5 Covid in June, recovered well No missed meds Lost some weight compared with last year - only 5 lbs, but encouraging. Partner is supportive with goals of losing some weight - walk more potentially finding a place to swim. Past Medical History: Past Medical History: Diagnosis Date HIV (human immunodeficiency virus infection) (CMS/HCC) Patient Active Problem List Diagnosis Adhesive capsulitis of shoulder Carpal tunnel syndrome Dyspnea Essential hypertension Gastroesophageal reflux disease Human immunodeficiency virus infection (CMS/HCC) Insomnia Lesion of ulnar nerve Mixed hyperlipidemia Nonspecific tuberculin test reaction Class 1 obesity due to excess calories without serious comorbidity with body mass index (BMI) of 32.0 to 32.9 in adult Preventative health care Past Surgical History: No past surgical history on file. Medications: Current Outpatient Medications on File Prior to Visit Medication Sig Dispense Refill atorvastatin (Lipitor) 20 mg tablet TAKE ONE TABLET BY MOUTH EVERY DAY 90 tablet 0 dolutegravir (Tivicay) 50 mg tablet Take 1 tablet (50 mg) by mouth in the morning. 90 tablet 1 emtricitabine-tenofovir alafen (Descovy) 200-25 mg tablet Take 1 tablet by mouth once daily as directed. 30 tablet 5 hydroCHLOROthiazide (HYDRODiuril) 25 mg tablet TAKE ONE TABLET BY MOUTH EVERY DAY 90 tablet 1 lisinopril 40 mg tablet TAKE ONE TABLET BY MOUTH EVERY DAY 90 tablet 1 amLODIPine (Norvasc) 10 mg tablet TAKE ONE TABLET BY MOUTH EVERY MORNING (Patient not taking: Reported on 09/07/2024) 90 tablet 1 No current facility-administered medications on file prior to visit. Social History: Social History Socioeconomic History Marital status: Single Spouse name: None Number of children: None Years of education: None Highest education level: None Occupational History None Tobacco Use Smoking status: Never Passive exposure: Never Smokeless tobacco: Never Vaping Use Vaping status: Never Used Substance and Sexual Activity Alcohol use: Not Currently Comment: Socially Drug use: Not Currently Sexual activity: None Other Topics Concern None Social History Narrative None Social Determinants of Health Financial Resource Strain: Low Risk (01/27/2024) Overall Financial Resource Strain (CARDIA) Difficulty of Paying Living Expenses: Not hard at all Food Insecurity: No Food Insecurity (01/27/2024) Hunger Vital Sign Worried About Running Out of Food in the Last Year: Never true Ran Out of Food in the Last Year: Not on file Transportation Needs: No Transportation Needs (01/27/2024) Transportation Lack of Transportation (Medical): No Lack of Transportation (Non-Medical): Not on file Physical Activity: Not on file Stress: Stress Concern Present (07/29/2023) [place] [employer] - Occupational Stress Questionnaire Feeling of Stress : To some extent Social Connections: Not on file Intimate Partner Violence: Unknown (01/27/2024) Humiliation, Afraid, Rape, and Kick questionnaire Fear of Current or Ex-Partner: No Emotionally Abused: Not on file Physically Abused: Not on file Sexually Abused: Not on file Housing Stability: Low Risk (01/27/2024) Housing Stability Vital Sign Unable to Pay for Housing in the Last Year: Not on file Number of Places Lived in the Last Year: Not on file Unstable Housing in the Last Year: No Family History: Family History Problem Relation Name Age of Onset Hypertension Mother Colon cancer Mother Colon cancer Father Hypertension Father Other (bypass) Father Allergies: Allergies Allergen Reactions Azithromycin Other Erythromycin Other Sulfa (Sulfonamide Antibiotics) Other Review of Systems All other systems reviewed and are negative. Objective BP 138/75 (BP Location: Left arm, Patient Position: Sitting, BP Cuff Size: Large adult) Pulse 107 Temp 36.8 ???C (98.3 ???F) (Oral) Resp 18 Ht 1.854 m (6' 1 ) Wt 110 kg (243 lb 6.4 oz) SpO2 90% BMI 32.11 kg/m??? Physical Exam Vitals and nursing note reviewed. Constitutional: General: He is not in acute distress. Appearance: Normal appearance. He is obe (more content not included)... [facility]11-26-2024 NoteMedical Tenant Coordinator met with patient on 09/07/2024 graphic manager and patient discussed social determinants of health and program targets, below as follows: Medication: The patient reports adherence to this regimen Insurance: Private/PILAR Housing/Utilities: Patient reports secure housing. Patient able to afford utilities/does not have utility bills. Transportation: Patient has access to transport via own vehicle. Food: Patient reports food security, no assistance needed. Behavioral Health: Patient is not linked with internal behavioral health. Psychotropic Medication Management:Patient reports being compliant with external medication management services Dental:Pt was asking about current treatment plan with [facility]. Primary Care Provider: Linked with external PCP Prevention for Positives: [facility] reviewed Prevention for Positives information with patient., Condoms provided., Patient understands U=U. Social Support: Patient reports positive social support. Eligbility: Patient meets program eligibility. Additional Needs: Follow up with [facility] - pt reports being linked, has dental work started (2 years ago) & it is still incomplete work. Additional Appointment Notes:[facility]11-26-2024 Note Case Management Care Plan Labs Viral Load: Not Detected Date drawn: 03/01/2025 CD4: 1192 Date drawn: 03/01/2025 Lab follow up needed: Patient will completed labs , per request of provider. Medication compliance Compliance: Patient reports being compliant with medication Prescribed ART: Descovy Barriers with medication: No barriers identified with complying with ART. Coverage Insurance: Private/PILAR [employer] program: Not enrolled in [employer] Tenant Coordinator: Patient not linked with [employer], Mcm will refer as needed. Housing: Stable Type: House Barriers to stable housing:No barrier ident Referrals made: No barriers identified. Follow up plan: Mcm will continue to monitor need for housing assistance. Utilities: Stable Barriers to stable utilities: No barriers identified. Referrals made: Mcm will submit referral as needed. Follow up plan: Mcm will continue to moniter need for Food: Patient reports food stability Barriers to stable food: No barriers identified. Referrals made: Mcm will submit referral as needed. Follow up plan: Mom will continue to monitor. Behavioral Health Therapy: Patient has declined a referral for Behavioral Health services Therapist: KERRI Psychotropic Medication Management: Patient is not in medication management services Prescriber: KERRI Groups: Patient educated about support groups. Social Support: Patient reports positive social support. Prevention for Positives PFP methods: [facility]CM reviewed Prevention for Positives information with patient., Condoms provided., Patient understands U=U.[facility] 08-23-2024 History of Present illness Narrative* YARED Andrews - 08/23/2024 8:15 AM EST GENERAL HISTORY AND PHYSICAL: NAME: Bernardo Jimenez : 1965 HISTORY OF PRESENT ILLNESS: Bernardo Jimenez is an 59 y.o. male is here for orthopedic evaluation right knee pain as well as discretelumbosacral pain with sciatic nerve irritation on the right side. He presents with an MRI that was completed through [facility] ordered by primary care Jossy Sow MD. patient does have a degenerative tear of the medial meniscus noted on his MRI however plain films show little degenerativejoint or arthritic findings. He has had more lower back and sciatic pain and has history of having problems years ago with possible compression fracture with no surgical treatment. He is not diabetic. 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 Little improvement with anti-inflammatory medications. PAST MEDICAL HISTORY: Past Medical History: Diagnosis Date Hypertension (CMS/HCC) PAST SURGICAL HISTORY: History reviewed. No pertinent surgical history. SOCIAL HISTORY: Social History Occupational History Not on file Tobacco Use Smoking status: Never Smokeless tobacco: Never Substance and Sexual Activity Alcohol use: Yes Drug use: Never Sexual activity: Not on file ALLERGIES: Allergies Allergen Reactions Sulfa Antibiotics Unknown MEDICATIONS: Current Outpatient Medications Medication Instructions atorvastatin (Lipitor) 20 MG tablet 1 tablet, Oral, Daily Descovy 200-25 MG tablet 1 tablet, Oral, Daily hydroCHLOROthiazide (HYDRODiuril) 25 MG tablet 1 tablet, Oral, Daily lisinopril 40 MG tablet 1 tablet, Oral, Daily Tivicay 50 MG tablet 1 tablet, Oral, Daily REVIEW OF SYSTEMS: Review of Systems General: Denies appetite or significant weight change. Denies fever, chills or night sweats. Denies lightheadedness. ENT: Denies dry mouth, sore throat or swollen glands. Denies difficulty swallowing. Denies ear pain. Respiratory: Denies chest pain, SOB, cough or wheezing. Denies asthma or pneumonia symptoms. Cardiovascular: Denies CP or palpitations. No syncope or dyspnea on exertion. Gastrointestinal: Denies nausea or vomiting. Denies heartburn or abdominal pain. Denies diarrhea. Genitourinary: Denies frequent or painful urination. Musculoskeletal: See HPI for comments. Integumentary: Denies rash, lesion or skin infection. Neurologic: Denies dizziness, headache or seizure history. Vitals: Body mass index is 34.87 kg/m . PHYSICAL EXAM: Physical Exam Exam of the right knee patient has questionable effusion with no erythema or fever of the joint he has full extension and flexion of 115 degrees. No associated pain with Roberta's on direct palpation of medial and lateral meniscus he does have more positive straight leg raise associated with lateral calf pain that radiates from the right Gluteal region with straight leg raise. XR knee 1 or 2 views right Imaging Result: Patient had bilateral PA standing x-rays along with bilateral sunrise in addition to films done through [facility] of his right knee. He does not show any significant osteoarthritis of the weight-bearing surfaces with some sclerotic change of the patellofemoral joints bilaterally with no subluxation maltracking evidence. No acute fracture seen. Orders Placed This Encounter Procedures XR knee 1 or 2 views right Order Specific Question: Reason for exam: Answer: pain XR knee 1 or 2 views right Imaging Result: Patient had bilateral PA standing x-rays along with bilateral sunrise in addition to films done through [facility] of his right knee. He does not show any significant osteoarthritis of the weight-bearing surfaces with some sclerotic change of the patellofemoral joints bilaterally with no subluxation maltracking evidence. No acute fracture seen. ASSESSMENT: Right knee pain, unspecified chronicity PLAN: Take prednisone and keep a log on daily symptoms noting for 15 days improvement or possibly relief of pain associated with lower back and sciatic nerve as well as knee pain. Use L 1821 knee support for work days and waking hours. May hold off on any NSAID use until you get to 1 a day on the prednisone. Follow up in 3 weeks for x-rays of the lumbarSpine here in the office and note your symptoms accordingly. Cold pack to lower back and gluteal region for 20 minutes as well as her right knee we will be helpful several times a day and before bedtime. [facility]ED Andrews [facility] Healthcare11-11-2024 Instructions* Patient Instructions* YARED Andrews - 08/23/2024 8:15 AM EST Take prednisone and keep a log on daily symptoms noting for 15 days improvement or possibly relief of pain associated with lower back and sciatic nerve as well as knee pain. Use L 1821 knee support for work days and waking hours. May hold off on any NSAID use until you get to 1 a day on the prednisone. Follow up in 3 weeks for x-rays of the lumbarSpine here in the office and note your symptoms accordingly. Cold pack to lower back and gluteal region for 20 minutes as well as her right knee we will be helpful several times a day and before bedtime. documented in [facility]* Diagnosis Right knee pain, unspecified chronicity- Primary Low back pain, unspecified back pain laterality, unspecified chronicity, unspecified whether sciatica present documented in this encounter [facility] HealthcareEvaluation note* Diagnosis Low back pain, unspecified back pain laterality, unspecified chronicity, unspecified whether sciatica present- Primary [facility]* Diagnosis Right-sided low back pain with right-sided sciatica, unspecified chronicity- Primary Lumbosacral radiculopathy due to osteoarthritis of spine [facility] Narrative No data available for this section [facility] Hospital Discharge instructions No data available for this section [facility] Progress note No data available for this section [facility] Summary Purpose Family History No Family History Records FoundNo Family History Records FoundNo Family History Records FoundNo Family History Records Found No data available for this section No data available for this section No data available for this section No data available for this section No data available for this section No data available for this section No data available for this section No data available for this section No data available for this section No data available for this section No data available for this section No data available for this section No Family History Records FoundNo Family History Records Found No data available for this section Advance Directives No Advanced Directives Records FoundNo Advanced Directives Records FoundNo Advanced Directives Records FoundNo Advanced Directives Records FoundNo Advanced Directives Records FoundNo Advanced Directives Records Found Additional Source Comments (unrecognized sect ion and content) No Status Records FoundNo Status Records FoundNo Status Records FoundNo Status Records FoundNo Status Records FoundNo Status Records Found INFORMATION SOURCE (unrecogn ized section and content) DATE CREATED AUTHOR 03/28/[address] [facility] DATE CREATED AUTHOR AUTHOR'S ORGANIZ ATION 09/11/2021 [facility] DATE CREATED AUTHOR AUTHOR'S ORGANIZ ATION 09/27/2024 [facility] EPIC DATE CREATED AUTHOR AUTHOR'S ORGANIZ ATION 10/15/2024 [facility] EPIC DATE CREATED AUTHOR AUTHOR'S ORGANIZ ATION 07/22/2025 [facility] DATE CREATED AUTHOR AUTHOR'S ORGANIZ ATION 08/11/2025 [facility] Reason for Visit (unrecogniz ed section and content) ReasonCommentsPain Patient Care team informatio n (unrecognized section and content) Personnel Name: JOSSY ESTRADA CNP Address: Address: [address] [facility] [place], [address] Personnel Name: JOSSY ESTRADA CNP Address: Address: [address] [facility] [place], [address] Personnel Name: JOSSY ESTRADA CNP Address: Address: [address] [facility] [place], [address] Personnel Name: JOSSY ESTRADA CNP Address: Address: [address] [facility] [place], [address] Personnel Name: JOSSY ESTRADA CNP Address: Address: [address] [facility] [place], [address] Personnel Name: JOSSY ESTRADA CNP Address: Address: [address] [facility] [place], [address] Personnel Name: JOSSY ESTRADA CNP Address: Address: [address] [facility] [place], [address] Personnel Name: JOSSY ESTRADA CNP Address: [address] [facility] [place], [address] Telecom: Personnel Name: JOSSY ESTRADA CNP Address: [address] [facility] [place], [address] Telecom: Personnel Name: JOSSY ESTRADA CNP Address: [address] [facility] [place], [address] Telecom: Personnel Name: JOSSY ESTRADA CNP Address: [address] [facility] [place], [address] Telecom: Personnel Name: JOSSY ESTRADA CNP Address: [address] [facility] [place], [address] Telecom: Personnel Name: JOSSY ESTRADA CNP Address: [address] [facility] [place], [address] Telecom: FOR RECORDS PERTAINING TO PATIENTS WHO ARE OR HAVE BEEN ENROLLED IN A CHEMICAL DEPENDENCY/SUBSTANCEABUSE PROGRAM, SOME INFORMATION MAY BE OMITTED. This clinical summary was aggregated from multiple sources. Caution should be exercised in using it in the provision of clinical care. This summary normalizes information from multiple sources, and as a consequence, information in this document may materially change the coding, format and clinical context of patient data. In addition, data may be omitted in some cases. CLINICAL DECISIONS SHOULD BE BASED ON THE PRIMARY CLINICAL RECORDS. [employer] [facility]. provides no warranty or guarantee of the accuracy or completeness of information in this document.
== END 2025-09-13 13:11 | disposition home or self-care (01) ==
LOC: PST 13:11
PROVIDERS: PCP Nurse Practitioner Family; Visit Provider Surgery
DX: Z01.818 Encounter for other preprocedural examination (principal); Z86.0101 Personal history of adenomatous and serrated colon polyps; Z83.719 Family history of colon polyps, unspecified

== ENCOUNTER 2025-09-28 06:39 | Day surgery (SDC) | payer BC, SELFPAY ==
--- NOTE | 2025-09-28 | OP_ITS ---
OPERATION DATE: 09/28/2025 PREOPERATIVE DIAGNOSIS: Personal history of colon polyps. POSTOPERATIVE DIAGNOSIS: Normal colonoscopy to cecum. PROCEDURE: Colonoscopy to cecum. SURGEON: Sidney Aguayo M.D. ANESTHESIA: Monitored anesthesia care. ESTIMATED BLOOD LOSS: Zero. INDICATIONS AND CONSENT: Patient is a 60-year-old male with a personal history of colon polyps, presents for surveillance colonoscopy. Last colonoscopy was 2019 with removal of several small tubular adenomas. Indications, risks, benefits, alternatives of proceeding with colonoscopy were explained extensively to the patient, including the risks of bleeding, colon perforation or anesthetic complications. All of his questions were answered. Informed consent was obtained. PROCEDURE: Patient brought to the operating room, placed in the left lateral decubitus position. Monitored anesthesia care was provided. Rectal exam was performed which showed no masses or blood. The scope was inserted into the anal canal. Under direct visualization was advanced. It was advanced to the cecum where cecal markings were clearly identified. There was noted to be a good prep. Upon withdrawal of the scope, mucosal surfaces were carefully examined. There were no mass lesions or polyps. No inflammatory changes or ulcerations. No significant diverticulosis. The scope was retroflexed in the anal canal. There was no significant hemorrhoidal disease. Scope was then withdrawn. Patient tolerated procedure well, was sent to recovery room in good condition. CC: NUVIA Hernandez
[2025-09-28 06:40] VITALS: BP 101/82; PULSE 92; TEMP 36.4; O2SAT 97; BMI 32.3
--- OUTSIDE RECORDS SUMMARY | 2025-09-28 06:43 | XMS_ITS | Patient Health Record ---
Author Organization [facility] [place] Address [address] [place] [address] Care Team Providers Care Appraiser Name Role Phone JOSSY ESTRADA CNP Primary Care Provider 024 Jossy Estrada Unavailable [phone] Allergies Allergen (clinical drug ingredient) Drug/Non Drug Allergy documented on EMR Reaction Allergy Type Onset Date Status amitriptyline Amitriptyline HCl Head funny Drug Allergy ActiveSubstance with sulfonamide structure and antibacterial mechanism of action (substance)Sulfa AntibioticshivesDrug AllergyActive Reason For Referral Reason polyps, 5 year fu co lonoscopy, HIV positive Diagnosis 1 Colon polyps (K63.5) Referral Organization [facility] Referring Provider First Name Jossy Referring Provider Last Name Rush Referring Provider Speciality Family Med shanti Referred Provider Sidney Aguayo Referred Provider Specialty General Surg emmanuel Referral Priority Routine Medications Medication SIG (Take, Route, Frequency, Duration) Notes Start Date End Date Status Lisinopril 40 MG 1 tablet Orally Once a day ActiveTivicay 50 MG1 tablet Orally Once a dayHIV medsActiveAtorvastatin Calcium 40 MG1 tablet Orally Once a day; Duration: 90 daysActiveAmitriptyline HClPain ManagementActivehydroCHLOROthiazide 25 MG1 tablet in the morning Orally Once a dayActiveDescovy 200-25 MG1 tablet Orally Once a dayHIV medsActive Immunizations Vaccine Route Administration Date Status Comme nts Flu, (09275) -historic- Spli t, Prsrvtve Free, for Intradermal use Unknown 07/29/2023 Administered Flu, Fluzone (87611) 6-35mo, multi-dose vial (3595-3973)Psqiply4208/13/2017 AdministeredFlu, Fluzone (76906) 6-35mo, multi-dose vial (1997-8300)Unknown 08/13/2018AdministeredHep B, Dialysis, 3 WxohHkewaxz03/28/2009dministered Meningococcal (Menactra)Qvqpizm4507/25/2020AdministeredMeningococcal (Menactra) Qqjeuvh29/13/2021AdministeredPneumococcal (Pneumovax 23)Itpyavd6912/20/2008 AdministeredPneumococcal (Pneumovax 23)Rmcohay8408/03/20199882SvgalexugyeiIBMY-OKO-9 (COVID 19 Pfizer 30mcg/0.3mL)Mfzfgqo13/16/7915DoaxzikjlqbkJGID-NEY-4 (COVID 19 Pfizer 30mcg/0.3mL)Kjvhxfs95/06/9757VckylblcvsojHXLV-MYM-4 (COVID 19 Pfizer 30mcg/0.3mL)Hrvpakt04/26/3234QprzbkpvfpkhQXAS-MKA-8 (COVID 19) bivalent 30 mcg/0.3 ml gigjZtyndcy07/26/2022AdministeredTdap (Boostrix)Qchaodr0610/13/2009 AdministeredTdap (Boostrix)Qscssql3708/03/2019Administered Social History Tobacco Use: Social History Observation Description Date Details (start date - stop date) Never Smoker NA - NA Tobacco Control (Standard) Question Answer Notes Tobacco use: Nonsmoker AUDIT-C (Standard) Question Answer Notes Did you have a drink containing alcohol in the p ast year? Yes How often did you have six or more drinks on one occasion in the past year?Less than monthly (1 point)How many drinks did you have on a typical day when you were drinking in the past year?1 or 2 drinks (0 point)How often did you have a drink containing alcohol in the past year?Daily or almost daily (4 points)Points 5InterpretationPositive Problems Problem Type SNOMED Code ICD Code Onset Dates Problem Status W/U Status Risk Notes Problem Hypertension (79616380) HTN (hypertension ) (I10) ActiveconfirmedProblemHypertriglyceridemia (339763338)Hypertriglyceridemia (E78.1)ActiveconfirmedProblemDegeneration of meniscus of knee, right (M23.306) ActiveconfirmedProblemLumbago with sciatica (425836410)Sciatica associated with disorder of lumbar spine (M53.9)Activeconfirmed Vital Signs Blood pressure diastolic 78 mm Hg 06/06/2025 Ytpeit93 in06/06/2025lood pressure fhunxewo409 mm Hg06/06/20255976Zaztja500.4 lbs 06/06/2025BMI31.98 kg/m206/06/2025 Encounters Encounter Location Date Provider Diagnosis [facility] [address] [place] [address] 11/29/2024 Jossy Estrada Bronchitis [address] [place] [address] 02/14/2025 Jossy Estrada Sciatica associated with disorder of lumbar spine M53.9 and HTN (hypertension) I10 [facility] [address] [place] [address] 06/06/2025 Jossy Estrada Colon polyps K63.5 [facility] [address] [place] [address] 10/26/2024 Jossy Estrada [facility] [place] [address] 06/06/2025Jossy Estrada Assessments Encounter Date Diagnosis (ICD Code) Assessment Notes Treatment Notes Treatment Clinical Notes Section Notes 06/06/2025 Colon polyps (ICD-10 - K63.5) 11/29/2024ronchitis (ICD-10 - J40)fu if not drlciccmkw89/05/2025Sciatica associated with disorder of lumbar spine (ICD-10 - M53.9) toradol 60 needs FMLA paperwork discuss pain with pain management 02/14/2025HTN (hypertension) (ICD-10 - I10) continue monitor elevated today Plan Of Treatment Pending Test Test Name Order Date MRI KNEE RT WO CON 07/26/2024 Insurance Providers Payer Name Payer Address Payer Phone Subscriber Number Group Number Insured Name Patient Relationship to Insured Coverage Start Date Coverage End Date [employer] PPO PLUS LOCAL PLAN [address] [place] [address] [id number] Payam Neri Self - patient is the insured Medical (General) History Medical History History ICD Code HIV hypertensionSurgical History Surgery Date(Month/Year) colonoscopy 2021 polyps
--- OUTSIDE RECORDS SUMMARY | 2025-09-28 06:43 | XMS_ITS | Clinical Summary ---
Author Organization [facility] Address [address] [place] [address] Care Team Providers Care Soil Engineer Name Role Phone Unavailable Primary Care Provider Unavailabl e Allergies Active AllergyReactionsCriticalityNoted DateCommentsSulfa AntibioticsUnknown 08/23/2024 Medications MedicationSigDispense QuantityRefillsLast FilledStart DateEnd DateStatus atorvastatin (Lipitor) 20 MG tablet Take 1 tablet by mouth DailyActive Tivicay 50 MG tablet Take 1 tablet by mouth DailyActive Descovy 200-25 MG tablet Take 1 tablet by mouth DailyActive hydroCHLOROthiazide (HYDRODiuril) 25 MG tablet Take 1 tablet by mouth DailyActive lisinopril 40 MG tablet Take 1 tablet by mouth DailyActive gabapentin (Neurontin) 300 MG capsule Take 300 mg by mouth in the morning and 300 mg before bedtime.09/07/2024ctive metoprolol succinate XL (Toprol-XL) 50 MG 24 hr tablet Take 1 tablet by mouth DailyActive Active Problems No known active problems Family History Medical HistoryRelationNameCommentsCancerFatherHeart diseaseFatherHypertension FatherCancerMotherDiabetesMotherHeart diseaseMotherHypertensionMotherRelation NameStatusCommentsFatherDeceasedMotherDeceased Social History Tobacco UseTypesPacks/DayYears UsedDateSmoking Tobacco: NeverSmokeless Tobacco: Never Tobacco Cessation:Counseling Given: Not Answered Alcohol UseStandard Drinks/WeekCommentsYes0 (1 standard drink = 0.6 oz pure alcohol)Sex and Gender InformationValueDate RecordedSex Assigned at BirthNot on fileLegal WnlMvay80/21/2024 7:29 PM ESTGender IdentityNot on fileSexual OrientationNot on file Last Filed Vital Signs Vital SignReadingTime TakenCommentsBlood Pressure--Pulse--Temperature-- Respiratory Rate--Oxygen Saturation--Inhaled Oxygen Concentration--Ykupnj877 kg (243 lb)09/24/2024 1:31 PM CEOTnjcgm792.8 cm (5' 10 )09/24/2024 1:31 PM ESTBody Mass Index34.8709/24/2024 1:31 PM EST Plan of Treatment Not on file Insurance
[2025-09-28 07:46] VITALS: BP 89/58; PULSE 93; TEMP 36.1; O2SAT 94
[2025-09-28 08:01] VITALS: BP 88/57; PULSE 88; O2SAT 95
[2025-09-28 08:15] VITALS: BP 90/65; PULSE 86; O2SAT 95
[2025-09-28 08:45] VITALS: BP 97/63; PULSE 70; O2SAT 97
== END 2025-09-28 08:53 | disposition home or self-care (01) ==
LOC: SURGOUT 06:40
PROVIDERS: PCP Nurse Practitioner Family; Visit Provider Surgery
PROC: (CPT 812; principal; 2025-09-28 07:30)
DX: Z12.11 Encounter for screening for malignant neoplasm of colon (principal); Z86.0101 Personal history of adenomatous and serrated colon polyps; Z80.0 Family history of malignant neoplasm of digestive organs; I10 Essential (primary) hypertension; E78.00 Pure hypercholesterolemia, unspecified; E78.1 Pure hyperglyceridemia; M54.16 Radiculopathy, lumbar region; Z21 Asymptomatic human immunodeficiency virus [HIV] infection status
CPT/HCPCS: 45378; J2003; J2704